=== PATIENT | male | born 1960 | race Caucasian/White ===

== ENCOUNTER 2018-03-29 01:12 | Inpatient (IN) | payer OTHER ==
[2018-03-29] MEDS ORDERED: DIAZEPAM 5 MG/ML 1 ML SYR IVP ONE (01:40)
[2018-03-29 01:56] LABS: PLATELET COUNT 172 10^3/uL (150-400)
[2018-03-29] MEDS ORDERED: ACETAMINOPHEN 325 MG TAB PO PRN (04:18)
[2018-03-29] MEDS ORDERED: ONDANSETRON DISINTEGRATING 4 MG TAB PO PRN (04:18)
--- NOTE | 2018-03-29 04:22 | EDPHY ---
H & P Stated Complaint: LEFT FLANK/BACK PAIN OFF AND ON FOR PAST 3 WEEKS Time Seen by Provider: 03/29/18 01:20 HPI/ROS: HPI The patient presents with left flank pain which has been intermittent for the last 3 weeks getting progressively worse, the pain is worse at night and tonight it became very severe so he comes into the emergency department. He is taking maximal doses of anti-inflammatories including Naprosyn and ibuprofen with minimal improvement in his symptoms. He has tried some oxycodone that his partner had left over with some relief. He denies any injuries to his back. He does not have any hematuria though sometimes reports a weak stream. He has not had any nausea or vomiting. He noticed when he touched his left flank it was very tender. He says he has spent the last several weeks in the bathtub because a bath is the only thing that helps with his pain. He has been seen by his primary care physician and has had some testing which has been unremarkable to date. He is awaiting an MRI of his spine next week. He has lost about 7-10 lb, however he attributes this to a trip into the mountains.. REVIEW OF SYSTEMS 10 systems were reviewed and negative with the exception of the elements mentioned in the history of present illness. PMHx: History of gastritis Soc Hx: Drinks about 1-2 bottles of wine a week, no drinking binges recently PHYSICAL General Appearance: Alert, no distress Eyes: Pupils equal and round no pallor or injection ENT, Mouth: Mucous membranes moist Respiratory: There are no retractions, lungs are clear to auscultation Cardiovascular: Regular rate and rhythm Gastrointestinal: Abdomen is soft and non-tender, no masses, bowel sounds normal Back: There is severe left-sided CVA tenderness Neurological: A&O, moves all extremities Skin: Warm and dry, no rashes Musculoskeletal: Neck is supple non tender Extremities: symmetrical, full range of motion Psychiatric: Patient is oriented X 3, there is no agitation Source: Patient Exam Limitations: No limitations - Personal History Current Tetanus/Diphtheria Vaccine: Yes Current Tetanus Diphtheria and Acellular Pertussis (TDAP): Yes Tetanus Vaccine Date: 2008 - Medical/Surgical History Hx Asthma: No Hx Chronic Respiratory Disease: No Hx Diabetes: No Hx Cardiac Disease: No Hx Renal Disease: No Hx Cirrhosis: No Hx Alcoholism: No Hx HIV/AIDS: No Hx Splenectomy or Spleen Trauma: No Other PMH: GASTRITIS - Social History Smoking Status: Never smoked Constitutional: Initial Vital Signs Temperature (C) 36.5 C 03/29/18 01:13 Heart Rate 63 03/29/18 01:13 Respiratory Rate 18 03/29/18 01:13 Blood Pressure 119/71 03/29/18 01:13 O2 Sat (%) 99 03/29/18 01:13 O2 Delivery Mode Room Air Allergies/Adverse Reactions: No Known Allergies Allergy (Verified 03/29/18 01:17) Home Medications: Medication Instructions Recorded Ibuprofen 600 mg PO 03/29/18 Medical Decision Making Differential Diagnosis: 57-year-old healthy man presents with 3 weeks of intermittent left-sided flank pain which is worse at night. On exam, he does have severe left-sided CVA tenderness. Differential diagnosis includes ureterolithiasis, pyelonephritis, musculoskeletal pain, less likely pancreatitis. In the emergency department labs were obtained and were unremarkable. As patient received Valium and morphine, however on reassessment had ongoing severe pain. CT scan was obtained which raises suspicion for malignancy of the pancreas with some sort of nodule in the retroperitoneum and hydronephrosis of the left kidney. I discussed this with him. Because he has ongoing pain, he does not feel he can manage this at home and would like to be admitted to the hospital. I have consulted with Dr. Stewart who will admit the patient. - Data Points Laboratory Results: Laboratory Results 03/29/18 01:45 03/29/18 01:45 03/29/18 03/29/18 03/29/18 01:45 01:45 01:45 WBC RBC Hgb Hct MCV MCH MCHC RDW Plt Count MPV Neut % (Auto) Lymph % (Auto) [place] % (Auto) Eos % (Auto) Baso % (Auto) Nucleat RBC Rel Count Absolute Neuts (auto) Absolute Lymphs (auto) Absolute Monos (auto) Absolute Eos (auto) Absolute Basos (auto) Absolute Nucleated RBC Immature Gran % Immature Gran # Sodium 139 mEq/L mEq/L (135-145) Potassium 4.7 mEq/L mEq/L (3.3-5.0) Chloride 106 mEq/L mEq/L (97-110) Carbon Dioxide 26 mEq/l mEq/l (22-31) Anion Gap 7 mEq/L L mEq/L (8-16) BUN 33 mg/dL H mg/dL (7-23) Creatinine 0.7 mg/dL mg/dL (0.7-1.3) Estimated GFR > 60 Glucose 112 mg/dL H mg/dL (70-100) Calcium 9.3 mg/dL mg/dL (8.5-10.4) Total Bilirubin 0.4 mg/dL mg/dL (0.1-1.4) Conjugated Bilirubin 0.1 mg/dL mg/dL (0.0-0.5) Unconjugated Bilirubin 0.3 mg/dL mg/dL (0.0-1.1) AST 20 IU/L IU/L (17-59) ALT 29 IU/L IU/L (21-72) Alkaline Phosphatase 63 IU/L IU/L (38-126) Total Protein 5.9 g/dL L g/dL (6.3-8.2) Albumin 3.6 g/dL g/dL (3.5-5.0) Lipase 33 IU/L IU/L (23-300) Urine Color YELLOW Urine Appearance CLEAR Urine pH 5.0 (5.0-7.5) Ur Specific [place] 1.031 H (1.002-1.030) Urine Protein NEGATIVE (NEGATIVE) Urine Ketones NEGATIVE (NEGATIVE) Urine Blood NEGATIVE (NEGATIVE) Urine Nitrate NEGATIVE (NEGATIVE) Urine Bilirubin NEGATIVE (NEGATIVE) Urine Urobilinogen NEGATIVE EU EU (0.2-1.0) Ur Leukocyte Esterase NEGATIVE (NEGATIVE) Urine Glucose NEGATIVE (NEGATIVE) 03/29/18 01:45 WBC 9.02 10^3/uL 10^3/uL (3.80-9.50) RBC 4.63 10^6/uL 10^6/uL (4.40-6.38) Hgb 14.1 g/dL g/dL (13.7-17.5) Hct 40.8 % % (40.0-51.0) MCV 88.1 fL fL (81.5-99.8) MCH 30.5 pg pg (27.9-34.1) MCHC 34.6 g/dL g/dL (32.4-36.7) RDW 12.7 % % (11.5-15.2) Plt Count 172 10^3/uL 10^3/uL (150-400) MPV 10.7 fL fL (8.7-11.7) Neut % (Auto) 62.6 % % (39.3-74.2) Lymph % (Auto) 23.2 % % (15.0-45.0) [place] % (Auto) 10.5 % % (4.5-13.0) Eos % (Auto) 3.1 % % (0.6-7.6) Baso % (Auto) 0.4 % % (0.3-1.7) Nucleat RBC Rel Count 0.0 % % (0.0-0.2) Absolute Neuts (auto) 5.64 10^3/uL 10^3/uL (1.70-6.50) Absolute Lymphs (auto) 2.09 10^3/uL 10^3/uL (1.00-3.00) Absolute Monos (auto) 0.95 10^3/uL H 10^3/uL (0.30-0.80) Absolute Eos (auto) 0.28 10^3/uL 10^3/uL (0.03-0.40) Absolute Basos (auto) 0.04 10^3/uL 10^3/uL (0.02-0.10) Absolute Nucleated RBC 0.00 10^3/uL 10^3/uL (0-0.01) Immature Gran % 0.2 % % (0.0-1.1) Immature Gran # 0.02 10^3/uL 10^3/uL (0.00-0.10) Sodium Potassium Chloride Carbon Dioxide Anion Gap BUN Creatinine Estimated GFR Glucose Calcium Total Bilirubin Conjugated Bilirubin Unconjugated Bilirubin AST ALT Alkaline Phosphatase Total Protein Albumin Lipase Urine Color Urine Appearance Urine pH Ur Specific [place] Urine Protein Urine Ketones Urine Blood Urine Nitrate Urine Bilirubin Urine Urobilinogen Ur Leukocyte Esterase Urine Glucose Medications Given: Morphine Sulfate (Morphine) 1 - 2 mg IVP Q1HR PRN PRN Reason: Pain, Severe Unable to Take PO Stop: 04/08/18 04:17 Last Admin: 03/29/18 05:15 Dose: 2 mg Ondansetron HCl (Zofran) 4 mg IVP Q4HRS PRN PRN Reason: Nausea/Vomiting, Can't Take PO Stop: 09/25/18 04:17 Last Admin: 03/29/18 05:15 Dose: 4 mg Discontinued Medications Diazepam (Valium) 5 mg IVP EDNOW ONE Stop: 03/29/18 01:41 Last Admin: 03/29/18 01:50 Dose: 5 mg Morphine Sulfate (Morphine) 4 mg IVP EDNOW ONE Stop: 03/29/18 03:17 Last Admin: 03/29/18 03:24 Dose: 4 mg Departure - Departure Disposition: [facility] Acute Clinical Impression: Pancreatic abnormality, Left flank pain Hydronephrosis Qualifiers: Hydronephrosis type: unspecified Qualified Code(s): N13.30 - Unspecified hydronephrosis Condition: Fair
[2018-03-29] MEDS: ONDANSETRON 4 MG/2 ML VIAL IVP PRN (05:15)
--- NOTE | 2018-03-29 06:12 | PDGENHP ---
History and Physical - Chief Complaint Flank pain - History of Present Illness 57 yo M w/ minimal PMHx presents with flank pain. He tells me he has had a myriad of symptoms over the last few months. In December he developed severe abdominal pain and difficulty eating that was attributed to gastritis. He was diagnosed with H. Pylori at that time. He tells me this GI discomfort is improved but over the last 3 weeks he has developed progressive L flank pain. He feels like the pain is "behind his stomach" but further to the left. He is tender in the L flank area. He felt subjectively feverish today as well. In the ED a CT scan reveals possible pancreatic malignancy as well as a L sided retroperitoneal nodule leading to moderate hydronephrosis. Patient has lost 10 lbs this summer but he states this is not uncommon during his backpacking trips , which he took earlier this summer. At the time of my evaluation he is comfortable after pain medication. Case discussed with ED physician Dr. Ambrocio; records reviewed in EMR. History Information - Allergies/Home Medication List Allergies/Adverse Reactions: No Known Allergies Allergy (Verified 03/29/18 01:17) Home Medications: Ibuprofen 600 mg PO 03/29/18 [Last Taken Unknown] I have personally reviewed and updated: family history, medical history - Past Medical History no pertinent PMH - Surgical History Reports: no pertinent surgical hx - Family History Additional family history: Asked, denies - Social History Smoking Status: Never smoked Review of Systems Review of Systems: ROS: 10pt was reviewed & negative except for what was stated in HPI & below Physical Exam Physical Exam: Temp Pulse Resp BP Pulse Ox 36.0 C 55 L 16 120/66 95 03/29/18 05:08 03/29/18 05:33 03/29/18 05:33 03/29/18 05:08 03/29/18 05:33 Constitutional: appears nourished, uncomfortable Eyes: PERRL, EOMI Ears, Nose, Mouth, Throat: moist mucous membranes, no oral mucosal ulcers Cardiovascular: regular rate and rhythym, no murmur, rub, or gallop Respiratory: no respiratory distress, clear to auscultation Gastrointestinal: normoactive bowel sounds, tenderness (Mild, epi-gastric), other (L CVAT) Skin: warm, normal color Musculoskeletal: full muscle strength, no muscle tenderness Neurologic: AAOx3, CN II-XII Intact Psychiatric: interacting appropriately, not anxious Lab Data & Imaging Review 03/29/18 01:45 03/29/18 01:45 WBC 9.02 10^3/uL (3.80-9.50) 03/29/18 01:45 RBC 4.63 10^6/uL (4.40-6.38) 03/29/18 01:45 Hgb 14.1 g/dL (13.7-17.5) 03/29/18 01:45 Hct 40.8 % (40.0-51.0) 03/29/18 01:45 MCV 88.1 fL (81.5-99.8) 03/29/18 01:45 MCH 30.5 pg (27.9-34.1) 03/29/18 01:45 MCHC 34.6 g/dL (32.4-36.7) 03/29/18 01:45 RDW 12.7 % (11.5-15.2) 03/29/18 01:45 Plt Count 172 10^3/uL (150-400) 03/29/18 01:45 MPV 10.7 fL (8.7-11.7) 03/29/18 01:45 Neut % (Auto) 62.6 % (39.3-74.2) 03/29/18 01:45 Lymph % (Auto) 23.2 % (15.0-45.0) 03/29/18 01:45 [place] % (Auto) 10.5 % (4.5-13.0) 03/29/18 01:45 Eos % (Auto) 3.1 % (0.6-7.6) 03/29/18 01:45 Baso % (Auto) 0.4 % (0.3-1.7) 03/29/18 01:45 Nucleat RBC Rel Count 0.0 % (0.0-0.2) 03/29/18 01:45 Absolute Neuts (auto) 5.64 10^3/uL (1.70-6.50) 03/29/18 01:45 Absolute Lymphs (auto) 2.09 10^3/uL (1.00-3.00) 03/29/18 01:45 Absolute Monos (auto) 0.95 10^3/uL (0.30-0.80) H 03/29/18 01:45 Absolute Eos (auto) 0.28 10^3/uL (0.03-0.40) 03/29/18 01:45 Absolute Basos (auto) 0.04 10^3/uL (0.02-0.10) 03/29/18 01:45 Absolute Nucleated RBC 0.00 10^3/uL (0-0.01) 03/29/18 01:45 Immature Gran % 0.2 % (0.0-1.1) 03/29/18 01:45 Immature Gran # 0.02 10^3/uL (0.00-0.10) 03/29/18 01:45 Sodium 139 mEq/L (135-145) 03/29/18 01:45 Potassium 4.7 mEq/L (3.3-5.0) 03/29/18 01:45 Chloride 106 mEq/L (97-110) 03/29/18 01:45 Carbon Dioxide 26 mEq/l (22-31) 03/29/18 01:45 Anion Gap 7 mEq/L (8-16) L 03/29/18 01:45 BUN 33 mg/dL (7-23) H 03/29/18 01:45 Creatinine 0.7 mg/dL (0.7-1.3) 03/29/18 01:45 Estimated GFR > 60 03/29/18 01:45 Glucose 112 mg/dL (70-100) H 03/29/18 01:45 Calcium 9.3 mg/dL (8.5-10.4) 03/29/18 01:45 Total Bilirubin 0.4 mg/dL (0.1-1.4) 03/29/18 01:45 Conjugated Bilirubin 0.1 mg/dL (0.0-0.5) 03/29/18 01:45 Unconjugated Bilirubin 0.3 mg/dL (0.0-1.1) 03/29/18 01:45 AST 20 IU/L (17-59) 03/29/18 01:45 ALT 29 IU/L (21-72) 03/29/18 01:45 Alkaline Phosphatase 63 IU/L (38-126) 03/29/18 01:45 Total Protein 5.9 g/dL (6.3-8.2) L 03/29/18 01:45 Albumin 3.6 g/dL (3.5-5.0) 03/29/18 01:45 Lipase 33 IU/L (23-300) 03/29/18 01:45 Urine Color YELLOW 03/29/18 01:45 Urine Appearance CLEAR 03/29/18 01:45 Urine pH 5.0 (5.0-7.5) 03/29/18 01:45 Ur Specific [place] 1.031 (1.002-1.030) H 03/29/18 01:45 Urine Protein NEGATIVE (NEGATIVE) 03/29/18 01:45 Urine Ketones NEGATIVE (NEGATIVE) 03/29/18 01:45 Urine Blood NEGATIVE (NEGATIVE) 03/29/18 01:45 Urine Nitrate NEGATIVE (NEGATIVE) 03/29/18 01:45 Urine Bilirubin NEGATIVE (NEGATIVE) 03/29/18 01:45 Urine Urobilinogen NEGATIVE EU (0.2-1.0) 03/29/18 01:45 Ur Leukocyte Esterase NEGATIVE (NEGATIVE) 03/29/18 01:45 Urine Glucose NEGATIVE (NEGATIVE) 03/29/18 01:45 Imaging Review: prelim CT AP 1. Pancreatic body neoplasm vs pancreatitis with phlegmon 2. Moderate left hydronephrosis and dilated prox ureter may be due to 1.5 cm retroperitoneal nodule. 3. No ureteral calculi 4. Trace FF along inferior tip of liver d/w Dr. Ambrocio at 2:25 am Assessment & Plan Assessment: 57 yo M w/ no significant PMHx presents with flank pain and found to have pancreatic lesion and retroperitoneal nodule. Plan: 1. Pancreatic lesion - Per radiology, differential includes neoplasm vs. pancreatitis with phlegmon. Clinically picture is not consistent with pancreatitis; lipase normal and no nausea/vomiting currently. Patient does have 10 lb weight loss this summer, but he states this is normal during his summer backpacking trip. He has no personal or family history of malignancy. - Will repeat CT with IV contrast for better evaluation of lesion - Direct further work-up pending this study (biopsy, oncology consult) - Will send CA 19-9, CEA, AFP 2. Retroperitoneal nodule - Left sided and leading to moderate hydronephrosis, possibly related to #1. This may be responsible for his L flank pain. - CT w/ IV contrast as above - Oxycodone, morphine PRN for pain control 3. Moderate hydronephrosis - As a result of retroperitoneal nodule. Renal function currently normal. - Will likely need non-urgent urology consult Diet - Regular Code - Full Ppx - LMWH Dispo - Admit under observation status
[2018-03-29] MEDS ORDERED: ENOXAPARIN 40 MG/0.4 ML SYR SC SCH (09:00)
[2018-03-29] MEDS: oxyCODONE IR 5 MG TAB PO PRN ×3 (10:43→22:08)
[2018-03-29] MEDS ORDERED: IOPAMIDOL (ISOVUE-300) 100 ML BTL ONE (10:55)
--- NOTE | 2018-03-29 11:47 | HOSPPROG ---
Hospitalist Progress Note Assessment/Plan: 57 yo M w/ no significant PMHx presents with flank pain and found to have pancreatic lesion and retroperitoneal nodule. Plan: 1. Pancreatic lesion - Per radiology, differential includes neoplasm vs. pancreatitis with phlegmon. Clinically picture is not consistent with pancreatitis; lipase normal and no nausea/vomiting currently. Patient does have 10 lb weight loss this summer, but he states this is normal during his summer backpacking trip. He has no personal or family history of malignancy. - Will repeat CT with IV contrast for better evaluation of lesion - Direct further work-up pending this study (biopsy, oncology consult) - Will send CA 19-9, CEA, AFP 2. Retroperitoneal nodule - Left sided and leading to moderate hydronephrosis, possibly related to #1. This may be responsible for his L flank pain. - CT w/ IV contrast as above - Oxycodone, morphine PRN for pain control 3. Moderate hydronephrosis - As a result of retroperitoneal nodule. Renal function currently normal. - Will likely need non-urgent urology consult Diet - Regular Code - Full Ppx - LMWH Dispo - Pending clinical course Subjective: Patient reports mild flank pain at time of exam, he reports it was severe last night Objective: Vital Signs Temp Pulse Resp BP Pulse Ox 36.4 C 52 L 16 114/65 97 03/29/18 07:36 03/29/18 07:36 03/29/18 07:36 03/29/18 07:36 03/29/18 07:36 03/28/18 03/29/18 03/30/18 05:59 05:59 05:59 Intake Total 100 Balance 100 - Physical Exam Constitutional: no apparent distress Eyes: PERRL Ears, Nose, Mouth, Throat: moist mucous membranes Cardiovascular: regular rate and rhythym Respiratory: no respiratory distress Gastrointestinal: normoactive bowel sounds, soft, non-tender abdomen Genitourinary: no bladder fullness, No casanova in urethra Skin: warm Musculoskeletal: full muscle strength Neurologic: AAOx3 Psychiatric: interacting appropriately Lymph, Heme, Immunologic: No ecchymoses, No petechiae ICD10 Worksheet Patient Problems: Problems Problem Status Onset Hydronephrosis Acute Left flank pain Acute Pancreatic abnormality Acute
--- NOTE | 2018-03-29 14:57 | ASMTCMCOM ---
CM Note CM Note Notes: Chart reviewed. 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 Per CT there is a pancreatic lesion of unknown etiology He is undergoing diagnostics. CM to follow for needs. Plan: TBD Date Signed: 03/29/2018 02:56 PM Electronically Signed By:Corinne Han RN
[2018-03-29] MEDS: LORazepam 0.5 MG TAB PO PRN ×2 (18:27→22:08)
--- NOTE | 2018-03-29 18:28 | GCON ---
GI INPATIENT CONSULTATION. DATE OF CONSULTATION: 03/29/2018 I was kindly requested to see the patient by Dr. Andrey Wade in consultation for a chief complaint of an abnormal x-ray of the GI tract. He is a 57-year-old white male who presents with left flank pain. In December, he had significant abdominal pain and some difficulty eating. He was apparently diagnosed with H pylori at that time. This apparently improved, but about 3 weeks ago, he developed progressive left flank pain. He has had a 10 pound weight loss since the summer. PAST MEDICAL HISTORY: 1. As above. 2. Otherwise, noncontributory. OUTPATIENT MEDICATIONS: Just include ibuprofen as needed. INPATIENT MEDICATIONS: Include Lovenox, morphine, Zofran. ALLERGIES: No known drug allergies. SOCIAL HISTORY: Denies smoking. FAMILY HISTORY: Negative for similar abdominal pain. REVIEW OF SYSTEMS: Positive pertinent review of systems as per my HPI. Otherwise, complete review of systems is negative. PHYSICAL EXAM: Reveals a nontoxic appearing gentleman. CONSTITUTIONAL: Nontoxic-appearing. VITAL SIGNS: Stable. SKIN: Warm, dry. EYES: Pupils equal, round, reactive to light and accommodation. EARS, NOSE, MOUTH, AND THROAT: Oropharynx without masses, moist mucosa. CARDIOVASCULAR: Normal S2, normal PMI. RESPIRATORY: Lungs clear to auscultation and percussion anteriorly. GASTROINTESTINAL: Abdomen is soft, with normal bowel sounds. NEUROLOGIC: Cranial nerves grossly intact, nonfocal. PSYCHIATRIC: Orientation, insight appropriate. MUSCULOSKELETAL: Strength grossly normal throughout, normal station. LABORATORIES: Include a CT scan of the abdomen and pelvis with IV contrast showing a 4 x 4 x 3 cm solid mass in the body of the pancreas. There is also what appears to be a 1.5 cm lymph node in the retroperitoneum, which seems to be responsible for a moderate left hydronephrosis. Normal CBC. CA 19-9 pending. Mildly elevated CEA. Normal lipase. Normal liver function tests. Normal basic metabolic panel. ASSESSMENT: 1. Abnormal x-ray of the gastrointestinal tract. A solid mass seen in the body of the pancreas. Suspicious for adenocarcinoma. 2. Left flank pain. See above. Much of this also may be due to a possible metastatic lymph node and secondary left-sided hydronephrosis. PLAN: 1. Endoscopic ultrasound with biopsy of the pancreatic body mass, for a firm tissue diagnosis. I will arrange this with my partner, Dr. Peraza, who does this advanced endoscopic procedure. Hopefully, we can do this tomorrow afternoon. 2. We will hold his Lovenox for now. 3. Further management of his possible metastatic retroperitoneal lymph node and secondary moderate left hydronephrosis, as per the Hospitalist Service. Thank you for allowing me to help in the management of this patient. Copy requested to: JAYESH FRITZ /[id number]/MODL MTDD
--- NOTE | 2018-03-29 19:26 | PDCONSULT ---
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 Patient began with left upper quadrant and left flank type pain with some radiation into the groin around December 2017. This was brought up to his primary care physician who then identified an H pylori infection. Patient was then treated for H pylori however as some of the pain improves some of it also persisted worse in the left upper quadrant left flank. This left flank pain and grew more intense over the previous 3 weeks and then the night of presentation patient felt feverish and went to the emergency room. In the emergency room a CT abdomen was performed which showed a nodule in the retroperitoneum causing hydronephrosis of the left kidney as well as a pancreatic body/tail mass. Patient is in acute pain in particular into the left flank despite morphine and oxycodone. Patient denies any nausea or vomiting he denies any changes in weight or changes in appetite however he did report some early satiety as of late which she attributed to his H. pylori infection. 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 -Patient denies any history of drugs or tobacco use -He does report occasional alcohol use, drinking wine a couple times a week with his -Patient is without children Family history -Patient is adopted but says his father of cancer which she presumes was long at age 63 Allergies -None Medications -Syriac herbal medicine preparations Physical examination: Vital Signs Reviewed in chart General: Patient is in mild distress from left flank pain otherwise is alert and oriented HEENT: Pupils are equal round reactive to light no scleral icterus or conjunctival pallor was appreciated Oropharynx is moist without any oral pharyngeal lesions Cardiovascular: Regular rate and rhythm without rubs thrills gallops or murmurs Chest: Some scant crackles at the left base otherwise clear to auscultation and percussion no respiratory distress Abdomen: Soft tender in the left upper in particular in the left lower quadrant without rebound or guarding no rigidity Extremities, warm and well perfused 2+ dorsalis pedis and radial pulses bilaterally Neurologic alert and oriented 3 cranial nerves II through XII are grossly intact patient has a normal gait Lymph: ~2cm mobile rubbery left axillary LN, no other palpable LAD Labs: CEA 7.19 Otherwise CBC and CMP are relatively unremarkable other than some absolute monocytosis which can be seen in malignancy CT of the abdomen and pelvis with IV contrast from March 29, 2018 was personally reviewed and reviewed with the patient including and demonstrated a pancreatic body/tail mass abutting the stomach as well as a retroperitoneal lymph node causing left-sided hydronephrosis Assessment and plan Patient is a 57-year-old male who presents with left-sided colicky pain and subsequently found to have left-sided hydronephrosis from a retroperitoneal nodule in proximity to a left pancreatic tail mass. Oncology was consulted for evaluation. #Pancreatic body/tail mass The radiographic features taken together with the elevated CEA are likely most consistent with pancreatic adenocarcinoma. The retroperitoneal lymph node would certainly be an area concerning for non-contiguous lymph node spread. Patient also does have a left 2 cm axillary lymph node which may also represent carcinoma. Other considerations would be pancreatic neuroendocrine tumor primary pancreatic lymphoma or IgG 4 related illness. Unlikely pancreatitis/ pseudocyst given no history of same. Recommend EUS with biopsy of the pancreatic mass. Recommend comprehensive pain management which may or may not include palliative stenting of the left ureter If this does indeed end up being pancreatic adenocarcinoma with then recommend a PET CT scan for more definitive staging. We will follow the patient peripherally and watch for his biopsy and CA-19-9 otherwise oncology will not continue to follow. Please call with any questions or concerns Christopher Watson [phone]
[2018-03-29] MEDS ORDERED: MAGNESIUM HYDROXIDE 30 ML UDCUP PO PRN (22:06)
[2018-03-29] MEDS ORDERED: POLYETHYLENE GLYCOL 3350 17 GM PKT PO PRN (22:06)
[2018-03-29] MEDS ORDERED: LACTULOSE 20 GM/30 ML UDCUP PO PRN (22:06)
[2018-03-29] MEDS: SENNOSIDES/DOCUSATE SODIUM TAB PO SCH (22:35)
[2018-03-30] MEDS: oxyCODONE IR 5 MG TAB PO PRN ×4 (01:21→23:24)
[2018-03-30] MEDS: LORazepam 0.5 MG TAB PO PRN ×3 (02:56→21:20)
[2018-03-30 03:42] LABS: INR 1.05 (0.83-1.16); PROTIME(PATIENT) 13.9 SEC (12.0-15.0)
[2018-03-30] MEDS: SENNOSIDES/DOCUSATE SODIUM TAB PO SCH ×2 (08:30→20:20)
[2018-03-30] MEDS: BISACODYL 10 MG SUPP PR PRN (08:33)
[2018-03-30] MEDS: D5W 1/2 NS W/ 20 KCl/L 1,000 ML IV SCH (09:50)
[2018-03-30] MEDS: TAMSULOSIN HCL 0.4 MG CAP PO SCH (11:57)
--- NOTE | 2018-03-30 12:18 | HOSPPROG ---
Hospitalist Progress Note Assessment/Plan: 57 yo M w/ no significant PMHx presents with flank pain and found to have pancreatic mass and retroperitoneal nodule. Plan: 1. Pancreatic Mass - Repeat CT with IV contrast done on 03/29 which showed a 4x3 cm mass - GI consulted for EUS with biopsies today - Oncology consulted for further evaluation and management pending biopsy - Pain control prn - CEA elevated, CA-19-9 pending 2. Retroperitoneal nodule/Moderate Hydronephrosis/Urinary Retention - Left sided and leading to moderate hydronephrosis, likely related to #1. - Patient retaining ~300-400 ml post-void residual - Straight cath PRN, if requires multiple I/O caths today will place casanova catheter - Discussed case with Urology, Dr. Ruiz, yesterday who recommended no current intervention - Will start on Flomax today - Oxycodone, morphine PRN for pain control Diet - Regular Code - Full Ppx - LMWH Dispo - Pending clinical course Subjective: Patient reports continuing urinary retention and flank pain Objective: Vital Signs Temp Pulse Resp BP Pulse Ox 36.7 C 66 16 126/77 H 95 03/30/18 08:15 03/30/18 08:15 03/30/18 08:15 03/30/18 08:15 03/30/18 08:15 03/29/18 03/30/18 03/31/18 05:59 05:59 05:59 Intake Total 100 100 Output Total 350 283 Balance 100 -250 -283 PT 13.9 SEC (12.0-15.0) 03/30/18 03:10 INR 1.05 (0.83-1.16) 03/30/18 03:10 - Physical Exam Constitutional: uncomfortable Eyes: PERRL Ears, Nose, Mouth, Throat: moist mucous membranes Cardiovascular: regular rate and rhythym Respiratory: no respiratory distress Gastrointestinal: soft, non-tender abdomen Genitourinary: no bladder tenderness Skin: warm Musculoskeletal: full muscle strength Neurologic: AAOx3 Psychiatric: interacting appropriately ICD10 Worksheet Patient Problems: Problems Problem Status Onset Hydronephrosis Acute Left flank pain Acute Pancreatic abnormality Acute
[2018-03-30] MEDS: HYDROmorphone HCL 0.5 MG/0.5 ML SYR IVP PRN ×2 (13:39→20:19)
[2018-03-30] MEDS ORDERED: LR 1,000 ML IV ONE (15:47)
--- NOTE | 2018-03-30 16:55 | PDMN ---
Medical Necessity Medical necessity: [facility] Pain Management GR57 y/o w/ flank and abd pain, CT scan reveals pancreatic mass and retroperitoneal nodule, GI and oncology consulted, EUS w/ biopsies pending, mod hydronephrosis likely r/t rp nodule requiring straight caths PRN, potential for urinary catheter placement per urology consult. During course of hospitalization pt has required IV opioids q2 hours in addition to long acting PO opioids, IV antiemetics, and pt remains NPO with cont IV fluids. Elevated CEA noted, CA19-9 pending, Change to IP status per MD order 03/30/18 @ 1627 for ongoing pain management, further diagnostic testing, monitoring and treatment.
--- NOTE | 2018-03-30 17:05 | PDANEPAE ---
ANE History of Present Illness egd,eus ANE Past Medical History - Cardiovascular History Hx Hypertension: No Hx Arrhythmias: No Hx Chest Pain: No Hx Coronary Artery / Peripheral Vascular Disease: No Hx CHF / Valvular Disease: No Hx Palpitations: No - Pulmonary History Hx COPD: No Hx Asthma/Reactive Airway Disease: No Hx Recent Upper Respiratory Infection: No Hx Oxygen in Use at Home: No Hx Sleep Apnea: No Sleep Apnea Screening Result - Last Documented: Negative - Neurologic History Hx Cerebrovascular Accident: No Hx Seizures: No Hx Dementia: No - Endocrine History Hx Diabetes: No Hypothyroid: No Hyperthyroid: No Obesity: no - Renal History Hx Renal Disorders: Yes Renal History Comment: hydronephrosis - Liver History Hepatic History Comment: pancreatic mass - Neurological & Psychiatric Hx Hx Neurological and Psychiatric Disorders: No - Chronic Pain History Chronic Pain: No ANE Review of Systems Review of Systems: - Exercise capacity Exercise capacity: >=4 METS ANE Patient History - Allergies Allergies/Adverse Reactions: No Known Allergies Allergy (Verified 03/29/18 01:17) - Home Medications Home medications: home medication list seen and reviewed Home Medications: Herbals/Supplements -Info Only 1 ea PO DAILY 03/29/18 [Last Taken Unknown] Naproxen 250 mg PO DAILY PRN 03/29/18 [Last Taken Unknown] - NPO status NPO Status: no food or drink >8 hours NPO Since - Liquids (Date): 03/30/18 NPO Since - Liquids (Time): 09:00 NPO Since - Solids (Date): 03/30/18 NPO Since - Solids (Time): 09:00 - Anes Hx Anes Hx: no prior problems Hx Anesthesia Complications (with details): he felt sab lead to development of reflux - Smoking Hx Smoking Status: Never smoked ANE Labs/Vital Signs - Labs Result Diagrams: 03/29/18 01:45 03/29/18 01:45 - Vital Signs Blood Pressure: 136/81 Heart Rate: 75 Respiratory Rate: 16 O2 Sat (%): 94 Height: 175.26 cm Weight: 65.6 kg ANE Physical Exam - Airway Mallampati Score: Class 2 Mouth exam: normal dental/mouth exam - Pulmonary Pulmonary: no respiratory distress - Cardiovascular Cardiovascular: regular rate and rhythym - ASA Status ASA Status: II ANE Anesthesia Plan Anesthesia Plan: general endotracheal anesthesia, GA with mask, MAC
[2018-03-30] MEDS ORDERED: LIDOCAINE 2% 2 ML INJ ONE ×3 (17:07)
[2018-03-30] MEDS ORDERED: ROCURONIUM 50 MG/5 ML VIAL ONE (17:07)
[2018-03-30] MEDS ORDERED: SUCCINYLCHOLINE CHLORIDE 200 MG/10 ML SYR IVP ONE (17:07)
[2018-03-30] MEDS ORDERED: DEXAMETHASONE 4 MG/ML VIAL ONE (17:07)
[2018-03-30] MEDS ORDERED: fentaNYL 100 MCG/2 ML INJ ONE (17:08)
[2018-03-30] MEDS ORDERED: PROPOFOL 200 MG/20 ML VIAL ONE (17:08)
[2018-03-30] MEDS ORDERED: ONDANSETRON 4 MG/2 ML VIAL ONE (17:32)
[2018-03-30] MEDS ORDERED: SUGAMMADEX SODIUM 200 MG/2 ML VIAL IVP ONE (17:32)
[2018-03-30] MEDS ORDERED: NALOXONE HCL 0.4 MG/ML INJ IVP PRN (18:02)
[2018-03-30] MEDS ORDERED: fentaNYL 100 MCG/2 ML INJ IVP PRN (18:02)
[2018-03-30] MEDS ORDERED: LR 500 ML IV PRN (18:02)
[2018-03-30] MEDS ORDERED: ALBUTEROL 3 ML DEYVIAL IH PRN (18:02)
[2018-03-30] MEDS ORDERED: ONDANSETRON 4 MG/2 ML VIAL IVP PRN (18:02)
--- NOTE | 2018-03-30 18:20 | GIREPORT ---
[facility] - Endoscopy Department Patient Name: Isai Mcmahon Procedure Date: 03/30/2018 5:11 PM Patient Type: Inpatient Attending MD/ ER Physician: Michele Peraza MD Procedure: Upper EUS Indications: Suspected mass in pancreas on CT scan, Abdominal pain in the left upper quadrant, Weight loss Patient Profile: 57 year old male presents for evaluation of left upper quadrant abdomin al pain, weight loss, and abnormal imaging (possible mass in mid body of t he pancreas) Providers: Michele Peraza MD Medicines: Monitored Anesthesia Care Complications: No immediate complications. Estimated blood loss: Minimal. Description of Procedure: After obtaining informed consent, the endoscope was passed under direct vision. Throughout the procedure, the patient's blood pressure, pulse, and oxygen saturations were monitored continuously. The Endosonoscope was introduced through the mouth, and advanced to the second part of duoden um. The esophagus, stomach, and duodenum were visualized endosonographicall y. The Endoscope was introduced through the mouth, and advanced to the sec ond part of duodenum. The upper EUS was accomplished without difficulty. Th e patient tolerated the procedure well. Findings: Endoscopic Finding : The examined esophagus was normal. A hiatal hernia was present. Patchy mildly erythematous mucosa was found in the gastric body and in the gastric antrum. Biopsies were taken with a cold forceps for histology. The examined duodenum was normal. Endosonographic Finding : An irregular mass was identified in the pancreatic body. The mass was hypoechoic. The mass measured 30 mm by 30 mm in maximal cross-sectional diameter. The endosonographic borders were poorly-defined. The remainde r of the pancreas was examined. The lesion was close to the splenic artery a nd it could not be determined if the echoplane b/w the lesion and the splenic vein was disrupted. The endosonographic appearance of parenchyma and the ups tream pancreatic duct indicated no duct dilation. Fine needle aspiration for cytology was performed. Color Doppler imaging was utilized prior to nee dle puncture to confirm a lack of significant vascular structures within th e needle path. Two passes were made with the 25 gauge needle using a transgastric approach. Adequate cellularity confirmed. A stylet was use d. A robotype operator was present and performed a preliminary cytologic examinatio n. Fine needle biopsy was performed. Color Doppler imaging was utilized pr ior to needle puncture to confirm a lack of significant vascular structures within the needle path. Two passes were made with the 22 gauge ultrasou nd biopsy needle using a transgastric approach. A visible core of tissue w as obtained. There was no sign of significant endosonographic abnormality in the visualized portion of the liver. No masses were identified. The gallbla dder and CBD was normal. No lymphadenopathy seen. The retroperitoneal lymph node seen on CT scan was not visible on EUS examination. Estimated Blood Loss: Estimated blood loss was minimal. Post Op Diagnosis: - Normal esophagus. - Hiatal hernia. - Erythematous mucosa in the gastric body and antrum. Biopsied. - Normal examined duodenum. - A mass was identified in the pancreatic body. Fine needle aspiration performed. Fine needle biopsy performed. - There was no evidence of significant pathology in the visualized port ion of the liver. Recommendation: - Return patient to [facility] for [facility] care. - Await cytology results and await path results. - NPO. - Continue present medications. - Thank you for allowing me to participate in the care of your patient. Attending Participation: I personally performed the entire procedure. Michele Peraza MD Michele Peraza MD 03/30/2018 6:20:06 PM This report has been signed electronicallyMichele Peraza MD Number of Addenda: 0 Note Initiated On: 03/30/2018 5:11 PM [email or web address]
--- NOTE | 2018-03-30 18:28 | POSTANESTH ---
Post Anesthetic Evaluation Cardiovascular Status: Normal, Stable Respiratory Status: Normal, Stable Level of Consciousness/Mental Status: Can Participate in Eval Pain Control: Adequate, Prn Tx Ordered Nausea/Vomiting Control: Adequate, Prn Tx Ordered Complications Possibly Related to Anesthesia: None Noted
[2018-03-31] MEDS: LORazepam 0.5 MG TAB PO PRN ×3 (02:07→19:50)
[2018-03-31] MEDS: oxyCODONE IR 5 MG TAB PO PRN ×6 (02:07→23:38)
[2018-03-31] MEDS: D5W 1/2 NS W/ 20 KCl/L 1,000 ML IV SCH (05:28)
--- NOTE | 2018-03-31 08:30 | SOAPPROG ---
JANEY Progress Note Assessment/Plan: Assessment/Plan: FNA from yesterday's EUS positive for malignancy. Dr. Peraza discussed with pt.' s . 03/31/18 08:28 Objective: Vital Signs Temp Pulse Resp BP Pulse Ox 36.6 C 61 18 104/60 95 03/31/18 03:55 03/31/18 03:55 03/31/18 03:55 03/31/18 03:55 03/31/18 03:55 Laboratory Results 03/31/18 06:06 03/30/18 03/31/18 04/01/18 05:59 05:59 05:59 Intake Total 2363 Output Total 500 Balance 1863 PT 13.9 SEC (12.0-15.0) 03/30/18 03:10 INR 1.05 (0.83-1.16) 03/30/18 03:10 ICD10 Worksheet Patient Problems: Problems Problem Status Onset Pancreatic abnormality Acute Left flank pain Acute Hydronephrosis Acute
[2018-03-31] MEDS: SENNOSIDES/DOCUSATE SODIUM TAB PO SCH ×2 (09:14→20:43)
[2018-03-31] MEDS: TAMSULOSIN HCL 0.4 MG CAP PO SCH (09:14)
[2018-03-31] MEDS ORDERED: MAGNESIUM CITRATE 300 ML BOTTLE PO ONE (09:47)
--- NOTE | 2018-03-31 11:46 | ASMTCMCOM ---
CM Note CM Note Notes: Patient's FNA came back positive for malignancy. Oncology will consult today. Patient also trying to coordinate with urology to resolve issue of Joseph v stent v indwelling cath before being discharged. He will contact his outpatient urologist to get her insight. Palliative consult ordered today given results of biopsy. CM will follow for any discharge needs. Date Signed: 03/31/2018 11:46 AM Electronically Signed By:Grace Griffin RN
[2018-03-31] MEDS: HYDROmorphone HCL 0.5 MG/0.5 ML SYR IVP PRN ×3 (11:54→20:51)
[2018-03-31] MEDS: ONDANSETRON 4 MG/2 ML VIAL IVP PRN (12:49)
[2018-03-31] MEDS ORDERED: HYDROmorphone HCL 0.5 MG/0.5 ML SYR IVP ONE (13:24)
--- NOTE | 2018-03-31 13:38 | HOSPPROG ---
Hospitalist Progress Note Assessment/Plan: 57 yo M w/ no significant PMHx presents with flank pain and found to have pancreatic mass and retroperitoneal nodule. Plan: 1. Pancreatic Mass - Repeat CT with IV contrast done on 03/29 which showed a 4x3 cm mass - GI consulted for EUS with biopsies which was done on 03/30, FNA showing - Oncology consulted, will see pt today - Pain control prn - CEA elevated, CA-19-9 pending 2. Retroperitoneal nodule/Moderate Hydronephrosis/Urinary Retention - Left sided and leading to moderate hydronephrosis, likely related to #1. - Patient retaining ~300-400 ml post-void residual - Straight cath PRN, if requires multiple I/O caths today will place casanova catheter - Discussed case with Urology, Dr. Gilbert this morning who recommended continuing casanova catheter as well as flomax with outpatient urology followup which he will arrange - Will start on Flomax today - Oxycodone, morphine PRN for pain control 3. Hyperkalemia - K 5.4 this AM - Likely elevated in setting of urinary retention - Management of retention as above - Continue to monitor K levels, treat as needed 4. Oncologic Pain - Currently having severe flank, abdominal pain - Continue Dilaudid IV PRN, Oxycodone PO PRN - May transition to long acting pain medication with breakthrough prior to discharge Diet - Regular Code - Full Ppx - LMWH Dispo - Pending clinical course, pain control being limiting factor Subjective: Patient was comfortable this morning with minimal pain Objective: Vital Signs Temp Pulse Resp BP Pulse Ox 36.3 C 77 16 133/69 H 91 L 03/31/18 11:20 03/31/18 11:20 03/31/18 11:20 03/31/18 11:20 03/31/18 11:20 Laboratory Results 03/31/18 06:06 03/30/18 03/31/18 04/01/18 05:59 05:59 05:59 Intake Total 2363 Output Total 500 Balance 1863 PT 13.9 SEC (12.0-15.0) 03/30/18 03:10 INR 1.05 (0.83-1.16) 03/30/18 03:10 - Physical Exam Constitutional: no apparent distress Eyes: PERRL Ears, Nose, Mouth, Throat: moist mucous membranes Cardiovascular: regular rate and rhythym Respiratory: no respiratory distress Gastrointestinal: normoactive bowel sounds Genitourinary: no bladder fullness Skin: warm Musculoskeletal: full muscle strength Neurologic: AAOx3 Psychiatric: interacting appropriately ICD10 Worksheet Patient Problems: Problems Problem Status Onset Hydronephrosis Acute Left flank pain Acute Pancreatic abnormality Acute
--- NOTE | 2018-03-31 16:44 | SOAPPROG ---
JANEY Progress Note Assessment/Plan: Assessment/Plan: FNA from yesterday's EUS positive for malignancy. Dr. Peraza discussed with pt.' s . Doing well, post-procedure, with minimal pain, afeb. - further mgmt as per oncology, urology and hospitalist Will sign off; please call if we can be of further help in the future [phone]). Thanks! 03/31/18 16:42 Subjective: cc: pancreatic body mass Minimal pain. No rigors, chills, sweats. Objective: Vital Signs Temp Pulse Resp BP Pulse Ox 36.6 C 75 16 108/50 L 94 03/31/18 15:28 03/31/18 15:28 03/31/18 15:28 03/31/18 15:28 03/31/18 15:28 Laboratory Results 03/31/18 06:06 03/30/18 03/31/18 04/01/18 05:59 05:59 05:59 Intake Total 2363 Output Total 500 450 Balance 1863 -450 PT 13.9 SEC (12.0-15.0) 03/30/18 03:10 INR 1.05 (0.83-1.16) 03/30/18 03:10 Physical Exam - Physical Exam General Appearance: WD/WN, alert, no apparent distress EENT: PERRL/EOMI, normal ENT inspection, pharynx normal, TMs normal Neck: non-tender, full range of motion, supple, normal inspection Respiratory: chest non-tender, lungs clear, normal breath sounds Cardiac/Chest: normal peripheral pulses, regular rate, rhythm Peripheral Pulses: 2+: carotid (R), carotid (L), femoral (R), femoral (L), dorsalis-pedis (R), dorsalis-pedis (L) Abdomen: normal bowel sounds, non-tender, soft Male Genitalia: deferred Rectal: deferred Back: Normal inspection Skin: normal color, warm/dry Lymphatic: no adenopathy Extremities: normal range of motion, non-tender, normal inspection, normal capillary refill Neuro/Psych: no motor/sensory deficits, alert, normal mood/affect, oriented x 3 ICD10 Worksheet Patient Problems: Problems Problem Status Onset Hydronephrosis Acute Left flank pain Acute Pancreatic abnormality Acute
[2018-04-01] MEDS: HYDROmorphone HCL 0.5 MG/0.5 ML SYR IVP PRN ×2 (03:33→07:35)
[2018-04-01] MEDS: oxyCODONE IR 5 MG TAB PO PRN ×4 (05:44→15:27)
[2018-04-01] MEDS: LORazepam 0.5 MG TAB PO PRN ×3 (06:40→20:31)
[2018-04-01] MEDS: SENNOSIDES/DOCUSATE SODIUM TAB PO SCH ×2 (08:42→20:01)
[2018-04-01] MEDS: TAMSULOSIN HCL 0.4 MG CAP PO SCH (08:44)
[2018-04-01] MEDS: ENOXAPARIN 40 MG/0.4 ML SYR SC SCH (08:48)
--- NOTE | 2018-04-01 10:02 | HOSPPROG ---
Hospitalist Progress Note Assessment/Plan: Assessment/Plan: 57 yo M w/ no significant PMHx presents with flank pain and found to have pancreatic mass and retroperitoneal nodule. Plan: Pancreatic Mass - FNA positive for malignancy. Final path pending, but suspect adenocarcinoma - Pain control: add fentanyl patch, cont prn oxy, dilaudid - Discussed with Dr. Troy, who will re-visit pt regarding staging, further treatment options - Likely needs PET scan next - Pt notes goals of care are to have a graceful Retroperitoneal nodule/Moderate Hydronephrosis/Urinary Retention. Pain still a significant problem. - repeat u/s today to reassess hydro. If worse, may need palliative stent - Re-called urology, who was consulted 03/29, did not see pt - Cont casanova, flomax - Pain cont Hyperkalemia- likely elevated in setting of urinary retention - resolved, monitor Oncologic Pain - Add Fentanyl patch as above, prn oxy, dilaudid Diet - Regular Code - Full Ppx - LMWH Dispo - cont inpt, urology and oncology consults today Subjective: Pt continues to have severe episodes of left flank pain. No N/V. No fevers/chills. Objective: Vital Signs Temp Pulse Resp BP Pulse Ox 36.8 C 95 16 119/67 92 04/01/18 07:53 04/01/18 07:53 04/01/18 07:53 04/01/18 07:53 04/01/18 07:53 Laboratory Results 04/01/18 03:49 03/31/18 04/01/18 04/02/18 05:59 05:59 05:59 Intake Total 2363 1000 Output Total 500 1450 Balance 1863 -450 PT 13.9 SEC (12.0-15.0) 03/30/18 03:10 INR 1.05 (0.83-1.16) 03/30/18 03:10 - Physical Exam Constitutional: no apparent distress Eyes: PERRL Ears, Nose, Mouth, Throat: moist mucous membranes Cardiovascular: regular rate and rhythym, no murmur, rub, or gallop Respiratory: no respiratory distress, clear to auscultation Gastrointestinal: normoactive bowel sounds, other (soft, nd, +TTP left side and epigastric, no r/r/g, +BS) Skin: warm Musculoskeletal: full muscle strength Neurologic: AAOx3 Psychiatric: interacting appropriately ICD10 Worksheet Patient Problems: Problems Problem Status Onset Hydronephrosis Acute Left flank pain Acute Pancreatic abnormality Acute
[2018-04-01] MEDS ORDERED: HYDROmorphone HCL 0.5 MG/0.5 ML SYR IVP PRN ×2 (10:03→13:24)
[2018-04-01] MEDS ORDERED: fentaNYL 12 MCG PATCH TD SCH (10:15)
--- NOTE | 2018-04-01 13:25 | GCON ---
DATE OF CONSULTATION: 04/01/2018 REASON FOR CONSULT: Left hydronephrosis. HISTORY OF PRESENT ILLNESS: Briefly, this is a 57-year-old male who was admitted with left flank jay n. He is also saying that over the last few months he has had severe abdominal pain, difficulty eati ng, and he feels like things have been progressing. Unfortunately, imaging in the ER showed pancreat ic malignancy with moderate left-sided hydronephrosis, and this would be a new diagnosis for this [facility] ient. ALLERGIES: No known drug allergies. HOME MEDICATIONS: Ibuprofen. PAST MEDICAL HISTORY: No pertinent past medical history. SURGICAL HISTORY: No surgical history. FAMILY HISTORY: Denies any pertinent family history. SOCIAL HISTORY: Never smoked. 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 REVIEW OF SYSTEMS: 10-point review of systems negative except as mentioned in HPI. PHYSICAL EXAM: VITAL SIGNS: Blood pressure 127/71, heart rate 84, respirations 15, O2 94 on room ai r, temperature 37.0. GENERAL: This is a thin male in no acute distress. HEENT: Normocephalic, atr aumatic. Extraocular movements intact. NECK: Supple. No lymphadenopathy. Trachea midline. RESPI RATORY: No accessory respiratory muscle use. CARDIAC: Regular rate and rhythm. No lower extremity edema. No obvious JVD. GI: Abdomen is somewhat tense to palpation. Tender over the left flank. : Patient has a catheter in his bladder. INTEGUMENT: Patient appears somewhat pale in color. No obvious rashes or lesions. NEURO: He was heavily narcotized but able to be roused and respond to q uestions. MUSCULOSKELETAL: Patient was examined while supine and not moving extremities. LABS: His white blood cell count is 9.02, hemoglobin 14.1, hematocrit 40.8, platelets 172. Chemistr ies: Sodium 140, potassium 4.7, chloride 99, carbon dioxide 31, anion gap 10, BUN 19, creatinine 1.1 , glucose 120, calcium is 9.5. Urinalysis appeared clear. CAT scan: The CT of the abdomen and pelv is was reviewed, which shows left-sided hydronephrosis. ASSESSMENT AND PLAN: Pancreatic cancer, left hydronephrosis. This case has been reviewed with Dr. Shantell argueta and recommend that the patient have a nephrostomy tube placed in the left kidney. Discussed oth er options, including stent. Recommend neph tube as initial treatment. Could consider stent down th e line. At this point, will move forward with a nephrostomy tube. /[id number]/MODL
--- NOTE | 2018-04-01 13:37 | SOAPPROG ---
SOAP Progress Note Assessment/Plan: Assessment and Plan: Isai is a very pleasant 57-year-old male who is presenting with a pancreatic mass. 1. Pancreatic mass: I do not see that his pathology has been finalized. I did call down to pathology and verbally was told that there were inflammatory changes in his biopsies. His CA 19-9 is elevated. He likely has an adenocarcinoma of the pancreas, however, we need pathology finalized prior to further discussion 2. Pain: He currently is receiving long-acting and short-acting medications. Appears last day that has been less of an issue. He voices understanding of the plan. Subjective: Isai reports significant pain over last 24 hr. He does state the pain is slightly better controlled today. He otherwise has no other complaints today. Objective: Vital Signs Temp Pulse Resp BP Pulse Ox 37.0 C 84 15 127/71 H 94 04/01/18 11:38 04/01/18 11:38 04/01/18 11:38 04/01/18 11:38 04/01/18 11:38 Laboratory Results 04/01/18 03:49 03/31/18 04/01/18 04/02/18 05:59 05:59 05:59 Intake Total 2363 1000 Output Total 500 1450 260 Balance 1863 -450 -260 PT 13.9 SEC (12.0-15.0) 03/30/18 03:10 INR 1.05 (0.83-1.16) 03/30/18 03:10 Physical examination: General: Pleasant-appearing male appears in no acute distress slightly sleepy at times HEENT opiates clear extraocular motions are intact Skin: No skin lesion Extremities: No cyanosis clubbing or edema Neuro: Moving all extremities ICD10 Worksheet Patient Problems: Problems Problem Status Onset Hydronephrosis Acute Left flank pain Acute Pancreatic abnormality Acute
[2018-04-01] MEDS ORDERED: HYDROmorphone HCL 0.5 MG/0.5 ML SYR IVP ONE (18:45)
--- NOTE | 2018-04-01 18:46 | ASMTCMCOM ---
CM Note CM Note Notes: Patient discussed in rounds today. Independent prior to current admission. C/O urinary issues and constipation. For biopsy this PM. CM to follow for needs. Plan: TBD Date Signed: 03/30/2018 02:43 PM Electronically Signed By:Corinne Han RN
--- NOTE | 2018-04-01 18:46 | ASMTCMCOM ---
CM Note CM Note Notes: Patient discussed and seen in interdisciplinary rounds. Final pathology on pancreatic mass pending. Pain fairly well controlled. Urology in to see. Plan will be a stent. Discharge needs remain TBD at this time. CM to follow. Plan: TBD Date Signed: 04/01/2018 02:45 PM Electronically Signed By:Corinne Han RN
[2018-04-02] MEDS: oxyCODONE IR 5 MG TAB PO PRN ×4 (00:19→22:54)
[2018-04-02] MEDS: LORazepam 0.5 MG TAB PO PRN ×2 (02:26→20:02)
[2018-04-02] MEDS: HYDROmorphone HCL 0.5 MG/0.5 ML SYR IVP PRN ×3 (02:26→23:53)
[2018-04-02] MEDS: PROCHLORPERAZINE MALEATE 5 MG TAB PO PRN ×2 (05:12→20:50)
[2018-04-02] MEDS: TAMSULOSIN HCL 0.4 MG CAP PO SCH (08:14)
[2018-04-02] MEDS: SENNOSIDES/DOCUSATE SODIUM TAB PO SCH ×2 (08:14→20:02)
[2018-04-02] MEDS ORDERED: fentaNYL 100 MCG/2 ML INJ IVP PRN (08:22)
[2018-04-02] MEDS ORDERED: NALOXONE HCL 0.4 MG/ML INJ IVP PRN (08:22)
[2018-04-02] MEDS ORDERED: MIDAZOLAM 2 MG/2 ML VIAL IVP PRN (08:22)
[2018-04-02] MEDS ORDERED: MEPERIDINE 25 MG/ML SYR IVP PRN (08:22)
[2018-04-02] MEDS ORDERED: FLUMAZENIL 0.5 MG/5 ML MDV IVP PRN (08:22)
[2018-04-02] MEDS ORDERED: IOPAMIDOL (ISOVUE-300) 100 ML BTL ONE (08:29)
[2018-04-02] MEDS ORDERED: LIDOCAINE 1% 300 MG/30 ML SDV ONE (08:29)
[2018-04-02] MEDS ORDERED: NS 1,000 ML IV SCH (08:30)
[2018-04-02] MEDS ORDERED: MIDAZOLAM 2 MG/2 ML VIAL ONE ×2 (10:07→11:11)
[2018-04-02] MEDS ORDERED: fentaNYL 100 MCG/2 ML INJ ONE ×2 (10:07→11:07)
--- NOTE | 2018-04-02 11:31 | PDPROPOC ---
Sedation Plan of Care ASA Classification: ASA 2 Mallampati Score: Class 2 Mallampati Reference Image:
--- NOTE | 2018-04-02 11:32 | PDRADPN ---
Radiology Procedure Note Date of Procedure: 04/02/18 Radiologist: Libia Sanches Anesthesia: IV Sedation Pre-op Diagnosis: mild left hydro Post-op Diagnosis: same Procedure: left percutaneous nephrostomy tube Inf/Abcess present in the surg proc area at time of surgery?: No
[2018-04-02] MEDS ORDERED: chlorproMAZINE HCL 25 MG TAB PO PRN (14:04)
--- NOTE | 2018-04-02 14:11 | HOSPPROG ---
Hospitalist Progress Note Assessment/Plan: Assessment/Plan: 57 yo M w/ no significant PMHx presents with flank pain and found to have pancreatic mass and retroperitoneal nodule. Plan: Pancreatic Mass - FNA positive for malignancy. Final path pending, but suspect adenocarcinoma - Pain control: added fentanyl patch, cont prn oxy, dilaudid - Discussed with Dr. Troy, pt needs outpt PET CT for staging adam with close [facility] f/u Retroperitoneal nodule/Moderate Hydronephrosis/Urinary Retention. - perc tube placed today per IR - Cont casanova, flomax - Pain control as above Hyperkalemia- likely elevated in setting of urinary retention - resolved, monitor Diet - Regular Code - Full Ppx - LMWH Dispo - cont inpt, pt too sedated this afternoon with procedural meds for discharge, aim to dc in am. Subjective: Pt very sedated after perc tube, received IV versed and pain meds. No fevers/chills. Pain controlled. Objective: Vital Signs Temp Pulse Resp BP Pulse Ox 36.9 C 83 12 108/60 98 04/02/18 07:55 04/02/18 12:00 04/02/18 12:05 04/02/18 12:25 04/02/18 12:25 Laboratory Results 04/01/18 03:49 04/01/18 04/02/18 04/03/18 05:59 05:59 05:59 Intake Total 1000 300 Output Total 1450 1785 265 Balance -450 -1485 -265 PT 13.9 SEC (12.0-15.0) 03/30/18 03:10 INR 1.05 (0.83-1.16) 03/30/18 03:10 - Physical Exam Constitutional: no apparent distress Eyes: PERRL Ears, Nose, Mouth, Throat: moist mucous membranes Cardiovascular: regular rate and rhythym Respiratory: no respiratory distress, clear to auscultation Gastrointestinal: normoactive bowel sounds, soft, non-tender abdomen Skin: warm Musculoskeletal: full muscle strength Neurologic: AAOx3 Psychiatric: interacting appropriately ICD10 Worksheet Patient Problems: Problems Problem Status Onset Hydronephrosis Acute Left flank pain Acute Pancreatic abnormality Acute
[2018-04-03] MEDS: LORazepam 0.5 MG TAB PO PRN ×2 (01:01→23:58)
[2018-04-03] MEDS ORDERED: HYDROmorphone HCL 0.5 MG/0.5 ML SYR IVP PRN (01:34)
[2018-04-03] MEDS ORDERED: LORazepam 0.5 MG TAB PO PRN (01:34)
[2018-04-03] MEDS ORDERED: CYCLOBENZAPRINE 10 MG TAB PO PRN (01:39)
[2018-04-03] MEDS: PROCHLORPERAZINE MALEATE 5 MG TAB PO PRN ×2 (05:19→23:58)
--- NOTE | 2018-04-03 08:46 | HOSPPROG ---
Hospitalist Progress Note Assessment/Plan: Assessment/Plan: 57 yo M w/ no significant PMHx presents with flank pain and found to have pancreatic cancer and ureteral obstruction Plan: Pancreatic adenocarcinoma - pain control and oversedation is the only issue holding up his discharge - Pain control: cont low dose fentanyl patch plus prn oxy, d/c IV dilaudid due to oversedation - d/c flexeril - Discussed with Dr. Troy, pt needs outpt PET CT for staging adam with close [facility] f/u Retroperitoneal nodule/Moderate Hydronephrosis/Urinary Retention. - perc tube placed yesterday, draining adequately - Cont casanova, flomax - Pain control as above Hiccups - still a problem, only had one dose of thorazine last night - schedule thorazine Hyperkalemia- likely elevated in setting of urinary retention - resolved, monitor Diet - Regular Code - Full Ppx - LMWH Dispo - cont inpt, pt remains too sedated for discharge, aim to dc in am. Subjective: Pt sleepy, sedated. Initially says pain is controlled, then says 7/ 10 pain when I addressed possibility of discharge. No N/V. No fevers. Objective: Vital Signs Temp Pulse Resp BP Pulse Ox 36.8 C 83 16 142/78 H 99 04/03/18 08:00 04/03/18 08:00 04/03/18 08:00 04/03/18 08:00 04/03/18 08:00 Laboratory Results 04/01/18 03:49 04/02/18 04/03/18 04/04/18 05:59 05:59 05:59 Intake Total 300 2100 Output Total 1785 1765 Balance -1485 335 PT 13.9 SEC (12.0-15.0) 03/30/18 03:10 INR 1.05 (0.83-1.16) 03/30/18 03:10 - Physical Exam Constitutional: no apparent distress Eyes: PERRL Ears, Nose, Mouth, Throat: moist mucous membranes Cardiovascular: regular rate and rhythym Respiratory: no respiratory distress Gastrointestinal: normoactive bowel sounds, soft, non-tender abdomen Skin: warm Musculoskeletal: full muscle strength ICD10 Worksheet Patient Problems: Problems Problem Status Onset Hydronephrosis Acute Left flank pain Acute Pancreatic abnormality Acute
[2018-04-03] MEDS ORDERED: chlorproMAZINE HCL 25 MG TAB PO SCH (09:00)
[2018-04-03] MEDS: TAMSULOSIN HCL 0.4 MG CAP PO SCH (09:45)
[2018-04-03] MEDS: ENOXAPARIN 40 MG/0.4 ML SYR SC SCH (09:46)
[2018-04-03] MEDS: SENNOSIDES/DOCUSATE SODIUM TAB PO SCH ×2 (09:46→21:45)
--- NOTE | 2018-04-03 10:20 | SOAPPROG ---
JANEY Progress Note Assessment/Plan: Assessment and Plan: Isai is a very pleasant 57-year-old male who is presenting with a pancreatic mass. 1. Pancreatic adenocarcinoma: He underwent a endoscopic biopsy that demonstrated pancreatic adenocarcinoma. I reviewed his CT imaging that shows a 1.5 cm retroperitoneal lymph node. He otherwise has no other regional lymphadenopathy. He has no evidence of liver metastasis either. I recommended that a PET/CT be obtained to verify his staging prior to making decisions with regards to the treatment. He strongly is a posterior receiving any form of chemotherapy or radiation therapy that is not curative. I voiced my understanding of his concerns. As soon as he is ready for discharge he will follow up with Dr. Christopher Watson here in [place]. 2. Pain: He had initial issues with pain. Now he has some issues with ongoing sedation. I explained to him that there be a balance between having a little bit of pain and remaining awake and alert. I explained to him that if he has incurable disease and at that point we would discuss proceeding with hospice and being even more aggressive with regard to pain control. He voices understanding of this. All questions were answered in voices understanding of the plan. He had appropriate time to ask questions. 04/03/18 10:21 Subjective: He underwent a left percutaneous nephrostomy tube placement. He is significantly sedated today with pain medications. He endorses no pain. He has no shortness of breath cough or chest pain. Objective: Vital Signs Temp Pulse Resp BP Pulse Ox 36.8 C 83 16 142/78 H 99 04/03/18 08:00 04/03/18 08:00 04/03/18 08:00 04/03/18 08:00 04/03/18 08:00 Laboratory Results 04/01/18 03:49 04/02/18 04/03/18 04/04/18 05:59 05:59 05:59 Intake Total 300 2100 Output Total 1785 1765 Balance -1485 335 PT 13.9 SEC (12.0-15.0) 03/30/18 03:10 INR 1.05 (0.83-1.16) 03/30/18 03:10 Physical examination: Temp Pulse Resp BP Pulse Ox 36.8 C 83 16 142/78 H 99 04/03/18 08:00 04/03/18 08:00 04/03/18 08:00 04/03/18 08:00 04/03/18 08:00 O2 (L/minute) 2 General: Thin male heavily sedated follow some conversation HEENT: Dry mucous membranes, opiates clear extraocular movements are intact pupils equal round reactive to light Cardiovascular: Regular rhythm no murmurs gallops rubs Abdomen: Soft nontender nondistended bowel sounds are present left percutaneous nephrostomy tube is noted MSK: No cyanosis clubbing or edema Neuro: Answers some questions but quickly falls back asleep is moving all extremities ICD10 Worksheet Patient Problems: Problems Problem Status Onset Hydronephrosis Acute Left flank pain Acute Pancreatic abnormality Acute
--- NOTE | 2018-04-03 13:20 | ASMTCMCOM ---
CM Note CM Note Notes: Patient seen and plan of care reviewed in interdisciplinary rounds. The patient remains quite sedated and is unsafe for discharge to home today. Medications are being adjusted. Patient will need PET scan to determine staging of pancreatic adenocarcinoma and appropriate treatment. CM to follow for needs. Likely to dc independent to home with good support. Plan: Likely discharge to home tomorrow. Date Signed: 04/03/2018 01:00 PM Electronically Signed By:Corinne Han RN
[2018-04-03] MEDS: BACLOFEN 10 MG TAB PO SCH ×2 (16:14→21:45)
[2018-04-03] MEDS: oxyCODONE IR 5 MG TAB PO PRN (23:58)
[2018-04-04] MEDS: oxyCODONE IR 5 MG TAB PO PRN ×4 (10:01→21:06)
[2018-04-04] MEDS: BACLOFEN 10 MG TAB PO SCH ×3 (10:01→21:06)
[2018-04-04] MEDS: TAMSULOSIN HCL 0.4 MG CAP PO SCH (10:01)
[2018-04-04] MEDS: SENNOSIDES/DOCUSATE SODIUM TAB PO SCH ×2 (10:02→21:07)
[2018-04-04] MEDS: ENOXAPARIN 40 MG/0.4 ML SYR SC SCH (12:02)
--- NOTE | 2018-04-04 13:22 | ASDISCHSUM ---
Discharge Information Plan Status:Home with No Needs Medically Cleared to Leave:04/04/2018 Discharge Date:04/04/2018 CM D/C Disposition:Home, Routine, Self-Care ADT D/C Disposition:Home, Routine, Self-Care Projected Discharge Date:04/04/2018 Transportation at D/C:Family Discharge Delay Reason: Follow-Up Date:04/04/2018 Discharge Slot: Final Diagnosis: Placement Information Patient Contact Information Contact Name:KAREN Relationship: Address:[address] [place] [address] City:[place] Alternate Phone: [facility]/Zip Code:[place] [address] Email: Financial Information Financial Class:HMO and PPO Plans Primary Plan Desc:[facility] Primary Plan Number:[id number] Secondary Plan Desc: Secondary Plan Number: Assessment Information [facility] CM Progress Note CM Note CM Note Notes: Chart reviewed. 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 Per CT there is a pancreatic lesion of unknown etiology He is undergoing diagnostics. CM to follow for needs. Plan: TBD Date Signed: 03/29/2018 02:56 PM Electronically Signed By:Corinne Han RN [facility] CM Progress Note CM Note CM Note Notes: Patient discussed in rounds today. Independent prior to current admission. C/O urinary issues and constipation. For biopsy this PM. CM to follow for needs. Plan: TBD Date Signed: 03/30/2018 02:43 PM Electronically Signed By:Corinne Han RN [facility] Progress Note CM Note CM Note Notes: Patient's FNA came back positive for malignancy. Oncology will consult today. Patient also trying to coordinate with urology to resolve issue of Joseph v stent v indwelling cath before being discharged. He will contact his outpatient urologist to get her insight. Palliative consult ordered today given results of biopsy. CM will follow for any discharge needs. Date Signed: 03/31/2018 11:46 AM Electronically Signed By:Grace Griffin RN [facility] CM Progress Note CM Note CM Note Notes: Patient discussed and seen in interdisciplinary rounds. Final pathology on pancreatic mass pending. Pain fairly well controlled. Urology in to see. Plan will be a stent. Discharge needs remain TBD at this time. CM to follow. Plan: TBD Date Signed: 04/01/2018 02:45 PM Electronically Signed By:Corinne Han RN [facility] Progress Note CM Note CM Note Notes: Patient seen and plan of care reviewed in interdisciplinary rounds. The patient remains quite sedated and is unsafe for discharge to home today. Medications are being adjusted. Patient will need PET scan to determine staging of pancreatic adenocarcinoma and appropriate treatment. CM to follow for needs. Likely to dc independent to home with good support. Plan: Likely discharge to home tomorrow. Date Signed: 04/03/2018 01:00 PM Electronically Signed By:Corinne Han RN Case Management Discharge Plan Note Case Management Discharge Discharge Order Complete? Answers: Yes Patient to Obtain Answers: via Family Medications Transportation Arranged Answers: Family/Friends Discharge Comments Notes: Pt is discharging home today with no CM needs. Date Signed: 04/04/2018 01:20 PM Electronically Signed By:SAMMIE Montelongo Intervention Information
--- NOTE | 2018-04-04 13:23 | ASMTLACE ---
AMOSE Length of stay for Answers: 1 day current admission Acuity / Level of Answers: Yes Care: Did the patient have an inpatient admission? # of Emergency department Answers: 1-2 visits in the last 6 months Score: 5 Date Signed: 04/04/2018 01:22 PM Electronically Signed By:SAMMIE Montelongo
--- NOTE | 2018-04-04 17:29 | GDS ---
DISCHARGE DIAGNOSES: 1. Pancreatic adenocarcinoma. 2. Moderate left-sided hydronephrosis secondary to compressive retroperitoneal nodule. 3. Hyperkalemia, resolved. 4. Oncologic pain. CONSULTANTS: 1. Dr. Ricardo Pfeiffer, Gastroenterology. 2. Dr. Christopher Watson, oncology. 3. Marina Sherman, urology. PROCEDURES: 1. Endoscopic ultrasound March 30, 2018, performed by Dr. Michele Peraza, showed normal esophagus, hi atal hernia, erythematous mucosa in the gastric body and antrum which was biopsied. Normal duodenum. A mass was identified in the pancreatic body. Fine-needle aspiration was performed and pathology i s positive for adenocarcinoma. 2. Percutaneous nephrostomy tube placement performed April 02, 2018, by Dr. Libia Sanches. HISTORY OF DETAILS: Please see history and physical dated March 29, 2018. In brief, the patient is a 57-year-old male who has been otherwise healthy, who presented to the emergency department with left flank pain. CT scan in the emergency department revealed a pancreatic body neoplasm and moderat e left hydronephrosis in the setting of a 1.5 cm retroperitoneal nodule. He was admitted to the [facility] for further management. HOSPITAL COURSE: Patient admitted to the Oncology Unit. GI consult was obtained. He underwent endo scopic ultrasound for tissue diagnosis of pancreatic adenocarcinoma. In addition, his CA-19-9 and CE A tumor markers were elevated. He had significant pain related to his left-sided hydronephrosis. He underwent percutaneous nephrostomy tube placement. Pain control was an issue during his hospitaliza tion. He required multiple IV and short-acting opiates and ultimately, a fentanyl patch was placed a t 12 mcg. However, he was very sedated on this and this had to be removed. His mentation dramatical ly improved upon removal of the fentanyl patch. His pain going forward will be managed with p.r.n. o xycodone. The Joseph catheter was removed prior to discharge, though it is noted he is at risk for ur inary retention with opioid and benzodiazepine use. On the day of discharge, his pain is controlled. Vital signs are stable. DISPOSITION: Patient is discharged home in stable condition. FOLLOWUP: 1. Dr. Christopher Watson, oncology, who will arrange outpatient PET-CT for staging and further treatment options pending results of his PET-CT. 2. Dr. Kevin Steward. DISCHARGE MEDICATIONS: Please see [facility] completed outpatient medication list. New medications on discharge include: Tylenol 650 mg p.o. q.4 hours p.r.n.; Baclofen 10 mg p.o. t.i.d. #30 p.r.n. for hiccups; Ativan 0.5 mg p.o. at bedtime p.r.n. #30, no refills; oxycodone 5-10 mg p.o. q.3 hours p.r.n . #30, no refills; Zofran 4 mg p.o. q.4 hours p.r.n. #20, no refills. /[id number]/MODL
[2018-04-04] MEDS: PROCHLORPERAZINE MALEATE 5 MG TAB PO PRN (21:07)
[2018-04-04] MEDS: LORazepam 0.5 MG TAB PO PRN (21:07)
[2018-04-05] MEDS: oxyCODONE IR 5 MG TAB PO PRN ×2 (00:10→09:09)
[2018-04-05] MEDS ORDERED: HYDROmorphONE/DILAUDID 1 MG/ML INJ IVP ONE (00:50)
[2018-04-05] MEDS ORDERED: LORazepam 0.5 MG TAB PO PRN (00:51)
[2018-04-05] MEDS ORDERED: LORazepam 2 MG/ML INJ IM ONE (01:04)
[2018-04-05 08:57] VITALS: BP 139/81
[2018-04-05] MEDS: TAMSULOSIN HCL 0.4 MG CAP PO SCH (09:09)
[2018-04-05] MEDS: SENNOSIDES/DOCUSATE SODIUM TAB PO SCH (09:09)
[2018-04-05] MEDS: BACLOFEN 10 MG TAB PO SCH (09:09)
[2018-04-05] MEDS ORDERED: BACLOFEN 10 MG TAB PO SCH (09:17)
--- NOTE | 2018-04-05 09:20 | PDDCSUM ---
Discharge Summary Discharge Summary: Please see complete DC summary from 04/04/2018 for details. Pt was discharged yesterday after casanova removal, but was unable to void. Casanova replaced and he will d/c with casanova catheter and percutaneous nephrostomy tube. Follow up with Dr. Mathis. Today, vitals are stable, mentation normal.
[2018-04-05] MEDS: BISACODYL 10 MG SUPP PR PRN (10:28)
[2018-04-05] MEDS: ENOXAPARIN 40 MG/0.4 ML SYR SC SCH (12:01)
--- NOTE | 2018-04-05 12:05 | ASMTCMCOM ---
CM Note CM Note Notes: Patient dc home with nephrosotmy tubes and indwelling casanova catheter. Has large support group. Reiterated need to schedule f/u adam as patient going home independently and with need to see Urology for nephrostomy and casanova management. Plan: Home with support. Date Signed: 04/05/2018 12:05 PM Electronically Signed By:Corinne Han RN
== END 2018-04-05 11:48 | disposition home or self-care (01) | DRG 436 ==
LOC: F1N 05:07 → OBSVTOIN 03-30 16:27
PROVIDERS: ADMIT Student in an Organized Health Care Education/Training Program; ATTEND Student in an Organized Health Care Education/Training Program
DX: C25.1 Malignant neoplasm of body of pancreas (principal); R19.09 Other intra-abdominal and pelvic swelling, mass and lump; N13.39 Other hydronephrosis; E87.5 Hyperkalemia; G89.3 Neoplasm related pain (acute) (chronic); K44.9 Diaphragmatic hernia without obstruction or gangrene
CPT/HCPCS: 86301-90; 96374; C1729; C1769; G0378; J0330; J0696; J1100; J1170; J1650; J2060; J2250; J2270; J2310; J2405; J2704; J3010; J3360; Q9967

== ENCOUNTER 2018-04-06 05:10 | Inpatient (IN) | payer OTHER ==
[2018-04-06] MEDS ORDERED: DIAZEPAM 5 MG TAB PO PRN ×2 (05:21→08:20)
[2018-04-06] MEDS ORDERED: CYCLOBENZAPRINE 10 MG TAB PO PRN (05:21)
[2018-04-06] MEDS ORDERED: MAGNESIUM HYDROXIDE 30 ML UDCUP PO PRN (05:40)
[2018-04-06] MEDS: oxyCODONE IR 5 MG TAB PO PRN ×4 (05:43→23:36)
[2018-04-06] MEDS: ONDANSETRON 4 MG/2 ML VIAL IVP PRN (05:44)
[2018-04-06] MEDS ORDERED: HYDROmorphONE/DILAUDID 2 MG/ML INJ IVP ONE ×2 (06:16→08:00)
[2018-04-06] MEDS: BISACODYL 10 MG SUPP PR PRN (06:39)
[2018-04-06] MEDS: SENNOSIDES/DOCUSATE SODIUM TAB PO SCH ×2 (08:07→20:22)
--- NOTE | 2018-04-06 08:12 | PDGENHP ---
History and Physical - Chief Complaint pain - History of Present Illness 58 yo male who was recently diagnosed with pancreatic cancer, requiring percutaneous nephrostomy tube for left sided hydronephrosis related to ureteral obstruction from retroperitoneal mass, returned to outside hospital within 24 hrs of discharge complaining of intractable pain. He requested frequent opioid and benzodiazepine dosing during prior hospitalization and wound up very over- sedated on several occasions, raising safety concerns. Medications were reduced and his fentanyl patch was removed. He was treated with prn oral oxycodone and pain was well controlled yesterday at time of discharge. His casanova was removed prior to discharge, but replaced due to urinary retention , likely due to medications. There has been no evidence of bladder outlet obstruction. No fevers, chills, nausea or vomiting. This morning, he states that he would like to have a RN at home to give him frequent "IV pushes" citing his need for ongoing IV pain medication. He is also frustrated about not being able to get an inpatient PET CT, citing that he has failed attempt at outpatient follow up. He is readmitted for pain control. History Information - Allergies/Home Medication List Allergies/Adverse Reactions: No Known Allergies Allergy (Verified 03/29/18 01:17) Home Medications: NK [No Known Home Meds] 04/06/18 [Last Taken Unknown] I have personally reviewed and updated: family history, medical history, social history, surgical history - Past Medical History no pertinent PMH Additional medical history: Pancreatic adenocarcinoma. Left hydronephrosis secondary to ureteral obstruction s/p percutaneous nephrostomy tube 03/2018 - Surgical History Reports: no pertinent surgical hx - Social History Smoking Status: Never smoked Alcohol Use: None Drug Use: None Additional social history: . 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 Review of Systems Review of Systems: ROS: 10pt was reviewed & negative except for what was stated in HPI & below Physical Exam Physical Exam: Temp Pulse Resp BP Pulse Ox 36.6 C 69 16 131/75 H 98 04/06/18 05:36 04/06/18 05:36 04/06/18 05:36 04/06/18 05:36 04/06/18 05:36 O2 (L/minute) 2 Constitutional: no apparent distress Eyes: PERRL Ears, Nose, Mouth, Throat: moist mucous membranes Cardiovascular: regular rate and rhythym Respiratory: no respiratory distress, clear to auscultation Gastrointestinal: normoactive bowel sounds, soft, non-tender abdomen Skin: warm Musculoskeletal: full muscle strength Neurologic: AAOx3 Psychiatric: interacting appropriately Lab Data & Imaging Review 04/06/18 15:40 04/06/18 15:40 Assessment & Plan Assessment: Pancreatic adenocarcinoma - returned within 24 hrs of discharge due to intractable pain. It seems he is having difficulty coping, poor symptom management and has frequently been overmedicated and sedated since diagnosis. He was very sedated on lowest dose of fentanyl during previous hospitalization, which was removed and mentation improved. Needs PET CT for staging. -prn oxycodone plus IV dilaudid is currently controlling his pain, consider addition of MS Contin -IR consult to consider nerve block, discussed with Dr. Bowman. Unclear if this would be of benefit, but IR will consult tomorrow -I've requested CM and RN meter and regulator shop supervisor look into option to get PET CT as inpatient (apparently this is only done as outpt, but pt readmitted within 24 hrs of discharge, failed outpt management and he is upset that this can't be done as inpt) -palliative care consult requested for increased outpt support and symptom management, discussed with Dr. Fournier who will see pt tomorrow -discussed with oncology, requested support in proceeding with inpatient PET CT for staging and tx options if possible -recheck cbc and cmp Left sided hydronephrosis s/p perc tube - this was initial pain issue, which is improved. u/s done at OSH, no recurrent hydro, perc tube draining. -outpt urology f/u Urinary retention - likely 2/2 opiates and bzds, failed voiding trial when casanova was removed prior to d/c. He was discharged with casanova. No fevers or e/ o infection. -cont casanova Hiccups - baclofen, prn thorazine Full code Dispo - cont inpt for pain management and symptom control. Palliative care saw today, will work towards outpt palliative involvement for better symptom management. Discussed with oncology, palliative care, case management and RN.
--- NOTE | 2018-04-06 09:58 | ASMTCMCOM ---
CM Note CM Note Notes: One of the patient's friends came to the front load trash truck driver and asked for a medical release form. Form provided. He then stated [facility] reusing to do PET scan. This CM tried to explain that the PET scan was usually deferred to the out patient setting when appropriate and that this patient was expected to be able to arrange the put paitent testing through his oncologist. This corporate communications associate told me that he worked at [facility] and does not feel that it is routine to defer the testing to the outpatient setting. Clearly despite what appears to be a great deal of friends and partner for support the patient is having difficulty coping with facing a serious diagnosis and this may be exacerbating his symptoms. Per discussion with Dr. Mccarty and Oncology virtual classroom manager Mariia Olivas an appeal will be made to pursue PET scan to be done while inpatient. The patient was unsuccessful at discharge to home and in fact sought care at an outside facility and was then readmitted here. Patient feel he is in need of IV medications to control his symptoms at this time. CM to follow. Plan: TBD Date Signed: 04/06/2018 09:57 AM Electronically Signed By:Corinne Han RN
[2018-04-06] MEDS: HYDROmorphone HCL 0.5 MG/0.5 ML SYR IVP PRN ×3 (10:59→20:21)
[2018-04-06] MEDS: PROMETHAZINE HCL 25 MG/ML INJ IVP PRN ×2 (11:03→20:22)
[2018-04-06] MEDS ORDERED: NS 1,000 ML IV SCH (12:15)
[2018-04-06] MEDS ORDERED: chlorproMAZINE HCL 25 MG TAB PO PRN (12:24)
--- NOTE | 2018-04-06 13:33 | ASMTCMCOM ---
CM Note CM Note Notes: Patient seen by oncology. Palliative care consulted. Patient seen by Stefano Lundberg, and referral placed to [facility]. Called and spoke with Vernell and requested inpatient consultation with Palliative care physician to assist patient with meeting his needs for pain control and psychological support. Referral placed in alllscripts. CM to follow. Plan: TBD Date Signed: 04/06/2018 01:33 PM Electronically Signed By:Corinne Han RN
--- NOTE | 2018-04-06 15:48 | PDMN ---
Medical Necessity Medical necessity: MCG: M05 abd pain undg: recent admit req percutaneous nephrostomy tube for L sided hydronephrosis r/t ureteral obstruction from retroperitoneal mass returning due to intractable pain, pt recently Dg with pancreatic Ca., Pt having poor pain relief/ coping at home -freq. overmedicated and sedated since Dg. failed outpt management, IV meds: IV Zofran, IV Phenergan, IVF, IV dilaudid, further monitoring and tx needed anticipate > 2 MN.
[2018-04-06 15:55] LABS: PLATELET COUNT 321 10^3/uL (150-400)
[2018-04-06] MEDS: BACLOFEN 20 MG TAB PO SCH ×2 (16:05→20:22)
[2018-04-07] MEDS: HYDROmorphone HCL 0.5 MG/0.5 ML SYR IVP PRN ×7 (00:26→21:22)
[2018-04-07] MEDS: LORazepam 0.5 MG TAB PO PRN ×2 (00:26→03:37)
[2018-04-07] MEDS: oxyCODONE IR 5 MG TAB PO PRN ×4 (03:20→16:36)
[2018-04-07] MEDS: PROMETHAZINE HCL 25 MG/ML INJ IVP PRN (06:30)
--- NOTE | 2018-04-07 08:08 | HOSPPROG ---
Hospitalist Progress Note Assessment/Plan: #Pancreatic carcinoma: oncology to consult #Intractable pain -IR evaluated for possible celiac/SMA block, but not great candidate now based on location or symptoms, side effects -Added MS Contin, gabapentin. Dr. Fournier with [facility] evaluating today. -Monitor for oversedation #Left-sided hydronephrosis: s/p nephrostomy tube #Urinary retention: casanova in place #DVT ppx: declines Lovenox #Disp: inpatient admission for pain control Subjective: pain uncontrolled overnight. Achey, left flank pain to groin Objective: Vital Signs Temp Pulse Resp BP Pulse Ox 36.4 C 73 16 155/80 H 94 04/07/18 04:00 04/07/18 04:00 04/07/18 04:00 04/07/18 04:00 04/07/18 04:00 Laboratory Results 04/06/18 15:40 04/06/18 15:40 04/06/18 04/07/18 04/08/18 05:59 05:59 05:59 Intake Total 650 Output Total 475 1500 Balance -475 -850 - Time Spent With Patient Time Spent with Patient: greater than 35 minutes Time Spent with Patient: Greater than 35 minutes spent on this patients care, greater than 50% of time spent counseling, educating, and coordinating care regarding the above mentioned plan. - Physical Exam Constitutional: no apparent distress Eyes: PERRL Ears, Nose, Mouth, Throat: moist mucous membranes Cardiovascular: regular rate and rhythym Gastrointestinal: normoactive bowel sounds, other (TTP left flank, groin. No rebound or guarding) Genitourinary: casanova in urethra, other (perc tube ) Musculoskeletal: full muscle strength Neurologic: AAOx3, CN II-XII Intact Psychiatric: interacting appropriately ICD10 Worksheet Patient Problems: Problems Problem Status Onset Hydronephrosis Acute Left flank pain Acute Pancreatic abnormality Acute
[2018-04-07] MEDS: SENNOSIDES/DOCUSATE SODIUM TAB PO SCH ×2 (08:19→20:21)
[2018-04-07] MEDS: BACLOFEN 20 MG TAB PO SCH ×3 (08:20→20:21)
--- NOTE | 2018-04-07 13:36 | ASMTCMCOM ---
CM Note CM Note Notes: Patient's plan of care discussed in interdisciplinary rounds. Patient to have visit from [facility] today. Known metastatic disease process. Order placed via allscripts to [facility]. Patient sedated and was seen by Oncology Nurse Navigator but was very groggy. Large supportive group of friends visiting throughout the day.CM to follow for needs. Plan: TBD Date Signed: 04/07/2018 01:35 PM Electronically Signed By:Corinne Han RN
[2018-04-07] MEDS: LACTULOSE 20 GM/30 ML UDCUP PO PRN (15:36)
--- NOTE | 2018-04-07 16:04 | ASMTCMCOM ---
CM Note CM Note Notes: Patient evaluated by Dr. Fournier for palliative care. 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 He states his pain is not controlled but he is amenable to exploring opiate medication regimes to provide pain control, a sleep aide and from there perhaps reitalin to assist him with the side of effects of his disease and medications. He often goes off and tells tangential stories in an attempt to make clear his personal feelings and at times became tearful. Overall he seems to be willing to move towards pain control, discharge and then obtaining PET scan as an outpatient to be accurately staged for appropriate treatment. CM to follow. Recommend [facility] to follow. Plan: TBD Date Signed: 04/07/2018 04:03 PM Electronically Signed By:Corinne Han RN
--- NOTE | 2018-04-07 17:11 | PDCONSULT ---
Accredited Legal Secretary Note: Patient is a 58-year-old male with a recent diagnoses of likely metastatic pancreatic adenocarcinoma who presents to the hospital for uncontrolled pain. Patient was recently discharged on April 05 after being admitted for renal colic/pancreatic pain. At that admission he was found to have a pancreatic mass which was biopsy proven adenocarcinoma as well as a left retroperitoneal lymph node which caused ureteral obstruction. Nephrostomy tube was placed however pain was an issue during that admission in particular issues related to increased somnolence versus uncontrolled pain. Patient went home feeling relatively well however his pain spiked overnight 2/10 out of 10 in pain severity he reports the pain is mainly in the right flank with some radiation down the spine and into the right pelvis. 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 He denies significant history of alcohol drugs or tobacco. Occasional wine. Family history: Patient is adopted, but reports father of presumed lung cancer in his 60s Physical examination: Vital signs reviewed General: No acute distress appearing nontoxic-appearing male appears younger than stated age HEENT: Pupils equal round reactive to light no scleral icterus or conjunctival pallor is appreciated oral mucosa is moist without any evidence of oral pharyngeal lesions Cardiovascular: Regular rate and rhythm without rubs chills gallops or murmurs Chest: Clear to auscultation and percussion bilateral posterior lungs Abdomen: Distended, diffusely tender to palpation without rebound or guarding Extremities: Warm and well perfused 2+ dorsalis pedis and radial pulses bilaterally no lower extremity edema Neuro: Cranial nerves II through XII are grossly intact 5 out of 5 upper and lower extremity strength bilaterally Labs in EMR reviewed Assessment & Plan Assessment: Patient is a 58-year-old male with recently diagnosed likely metastatic pancreatic adenocarcinoma admitted for pain control. Problem #1cancer related pain Patient has had a crescendo and symptoms of pain over the last few weeks. Pain is mostly abdominal in nature and opiate pain strategies have been limited by somnolence. He is currently receiving oxycodone and as needed hydromorphone. Pain seems to be colicky/paroxysmal in nature. He is meeting with palliative care physician which I recommend for symptom management. He is also meeting with an interventional radiologist to discuss celiac plexus block. Problem #2metastatic adenocarcinoma of the pancreas Patient has a pancreatic body tail mass which is biopsy-proven adenocarcinoma. He also has a retroperitoneal, noncontiguous, lymph node which is also enlarged and caused ureteral obstruction. This is likely also account development representative of disease. Given patient's severe symptom burden and elevated CA-19-9 is likely we are underestimating the current extent of his disease. When patient is stable from a pain and oral intake standpoint and then nonurgently have a PET CT scan as an outpatient follow-up with me to discuss further therapy. Christopher Watson
--- NOTE | 2018-04-07 18:03 | GCON ---
PALLIATIVE MEDICINE CONSULT. CHIEF COMPLAINT: Dr. Delilah Mccarty and Dr. Mariela Wilder requests goals of care conversation as well as assistance with symptom management. HISTORY OF PRESENT ILLNESS: This is a 58-year-old gentleman who was recently diagnosed with adenocarcinoma of the pancreas. He was originally admitted to the hospital from March 30 through April 05. He had left flank pain on admission, and was found to have left-sided hydronephrosis as well as a pancreatic head mass. He had a left nephrostomy tube placed. He had difficult- to-control pain while in the hospital and while it eventually appeared to be managed, unfortunately on the date of discharge, he returned with a pain crisis. In addition, to the nephrostomy tube, he is also requiring an indwelling Casanova catheter. As stated above, he was readmitted on April 06 for a pain crisis. Since then, he has been given baclofen 20 mg 3 times daily, Thorazine as needed, Dilaudid 0.5 mg every 3 hours as needed. He has been using that almost every 3 hours. He is also receiving Ativan as needed every 6 hours. He states he uses this primarily for sleep. He also had oral oxycodone 10 mg almost every 4 hours which is how it is prescribed, as needed. I meet with the patient and his case reviewer, Radha, to discuss his goals as well as his pain. He shares with me that "I have been preparing to since I was a teenager." He is struggling emotionally with how his is going to occur. He never envisioned it would happen with him weakened and in bed. He thought it would happen while he was rock climbing or doing something more adventurous. He states that while at times his pain is better controlled, it always worsens at night. He has not identified any inciting factor for these pain crises. He feels his pain simply gets worse at night when things are more quiet. He states last night he was screaming, "thank you" over and over again, because he had a fantastic life. He is trying to be accepting of the pain. 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 He seems to have some fears surrounding painful , however also is aware that if he were to commit suicide, his would not get his insurance policy which is also very important to him. He describes his pain as being all over his back and abdomen and moves around. He had used oxycodone prior to his hospitalization, but it eventually became ineffective. He has also explored CBD products and these were effective only for short time. We discussed finding a level of pain relief that will give him an acceptable functional level including cognitively, as well as an acceptable pain control level. I advised not to focus on a number scale to measure his pain. He has a goal of wanting to finish a manual that integrates osteopathic medicine and [place] medicine. In addition to completing this manual, being able to be intimate with his one last time is also very important to him. He recognizes that his indwelling casanova catheter is a barrier to this intimacy. In order to finish the book, he states he would need at least 2 hours of productive time per day and it would take approximately 6 months. REVIEW OF SYSTEMS: He has had weight loss, pain and constipation. He has intermittent nausea and vomiting with declining appetite. He has a rash on his back that causes some itching as well. PAST MEDICAL HISTORY: Essentially none. He did have a hemorrhoidectomy in his 20s. SOCIAL HISTORY: He does not smoke. He drinks approximately 6 alcoholic beverages per week. He would want his as his decision maker should he be unable to make decisions for himself and wishes to be DNR DNI. MEDICATIONS: As reviewed in [facility]. ALLERGIES: None known. FAMILY HISTORY: He was adopted. PHYSICAL EXAM: VITAL SIGNS: His most recent vital signs show a blood pressure of 151/77, heart rate of 74, he is saturating 96% on room air with a respiratory rate of 16, and is afebrile with a temperature of 36.4 degrees Celsius. GENERAL: Alert and oriented x3. Articulate and eager to converse. No apparent distress. Appears quite comfortable throughout my entire visit of 90 minutes with the exception of 1 vomiting episode after taking lactulose near the end of my visit. HEENT: He has temporal wasting bilaterally. His hearing is intact. There is no icterus. CARDIOVASCULAR: Regular rate and rhythm. RESPIRATORY: Clear to auscultation bilaterally. GASTROINTESTINAL: Positive bowel sounds. MSK: able to walk independently up and down the hospital halls. LABORATORY AND IMAGING STUDIES REVIEWED. ASSESSMENT AND PLAN: This is a 58-year-old gentleman with pancreatic adenocarcinoma. He has had a prolonged hospital stay secondary to very [id number] pain. Because of this, he has not been able to follow up with Oncology as an outpatient to obtain a PET scan for staging and to discuss treatment options. 1. Pain. I spoke with Dr. Wilder earlier and I agree with starting a long- acting pain medicine. We discussed starting MS Contin 30 mg twice daily. After 3 doses he will have reached a steady state. If he continues to require more than 4 doses of as needed pain medicine, I would titrate this up to 45 mg twice daily. Again, after 3 doses, he will have reached a steady state and further titration can occur. With regard to break through pain, I would recommend switching from oxycodone which he had already been failing as an outpatient, to Dilaudid. He can use 2-4 mg by mouth every 4 hours as needed for pain control. 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 I discussed that he may develop tolerance to the sedative affects of the opioids, however his cancer will also be contributing to his fatigue. After he is on a stable pain regimen, I did discuss initiation of Ritalin, which would likely occur as an outpatient to aid in appetite and energy. Furthermore, I agree with the use of gabapentin as an adjunct for both pain relief as well as to treat the pruritus associated with the rash on his back. 2. Constipation. He has been encouraged to use his [place] herbal remedies as well as the laxatives available in the hospital. He is still having flatus. He is aware of the constipating effect of opioids and is willing to take any aggressive laxative regimen recommended. He did share that he would prefer to have profuse diarrhea in order to clean himself out at this point, as opposed to ongoing constipation. 3. Insomnia. While there is a component of poor pain control related to this, there is likely also a component of emotional distress. The patient denies anxiety but I believe it is still present. 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 Trazodone 100 mg at bedtime could be used either with or without the Ativan to improve sleep duration and quality. 4. Goals. We did discuss hospice. 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 He feels that at this time in order to achieve these goals he will need to pursue a consultation with the oncologist to determine what treatment is available and how it will not only affect the quantity of his life but also the quality of his life. He voiced understanding that he would need to be on an entirely oral pain regimen in order to achieve these goals. I did discuss that with hospice, continuous infusions of pain medicine are often done, but that would most likely prohibit him from achieving his goal of finishing the book. With regards to resuming intimacy with his , if he remains dependent on a casanova catheter , perhaps a transition to intermittent self-straight catheterization would be an option. Please note that 120 minutes have been spent on this consult with far greater than 50% of the time in [id number] counseling and assessment of the patient. /[id number]/MODL MTDD
[2018-04-07] MEDS: HYDROmorphONE/DILAUDID 2 MG TAB PO PRN ×2 (19:07→22:51)
[2018-04-07] MEDS: morphINE SR 30 MG TAB PO SCH (20:21)
[2018-04-07] MEDS: BISACODYL 10 MG SUPP PR PRN (20:21)
[2018-04-07] MEDS: GABAPENTIN 300 MG CAP PO SCH (20:21)
[2018-04-07] MEDS ORDERED: morphINE SR 15 MG TAB PO SCH (21:00)
[2018-04-07] MEDS ORDERED: traZODone 50 MG TAB PO SCH (21:00)
[2018-04-07] MEDS: traZODone 50 MG TAB PO PRN (22:53)
[2018-04-08] MEDS: HYDROmorphone HCL 0.5 MG/0.5 ML SYR IVP PRN ×3 (02:52→23:19)
[2018-04-08] MEDS: ONDANSETRON 4 MG/2 ML VIAL IVP PRN ×3 (02:52→20:38)
[2018-04-08] MEDS: HYDROmorphONE/DILAUDID 2 MG TAB PO PRN ×3 (03:59→21:50)
--- NOTE | 2018-04-08 09:08 | HOSPPROG ---
Hospitalist Progress Note Assessment/Plan: #Intractable pain: improved -IR evaluated for possible celiac/SMA block, but not great candidate now based on location or symptoms, side effects -Uptitrate MS Contin tomorrow if needed, PRN Dilaudid -Monitor for oversedation #Pancreatic carcinoma: oncology to further stage as outpatient #Nausea/vomiting: likely opioid-related. AXR reassuring, constipation, no obstruction -Ativan, Zofran. Did not tolerate Phenergan. Zydis if needed #Left-sided hydronephrosis: s/p nephrostomy tube #Urinary retention: casanova in place #DVT ppx: declines Lovenox #Disp: inpatient admission for pain control Subjective: vomiting, weak. 2 small BMs Objective: Vital Signs Temp Pulse Resp BP Pulse Ox 36.6 C 80 16 137/92 H 97 04/08/18 08:51 04/08/18 08:51 04/08/18 08:51 04/08/18 08:51 04/08/18 08:51 Laboratory Results 04/06/18 15:40 04/06/18 15:40 04/07/18 04/08/18 04/09/18 05:59 05:59 05:59 Intake Total 650 300 Output Total 1500 1300 Balance -850 -1000 - Time Spent With Patient Time Spent with Patient: greater than 35 minutes Time Spent with Patient: Greater than 35 minutes spent on this patients care, greater than 50% of time spent counseling, educating, and coordinating care regarding the above mentioned plan. - Physical Exam Eyes: PERRL Ears, Nose, Mouth, Throat: moist mucous membranes Cardiovascular: regular rate and rhythym Respiratory: no respiratory distress Gastrointestinal: normoactive bowel sounds (quiet, but present throughout), other (left flank TTP ), No guarding, No rebound Skin: warm Musculoskeletal: full muscle strength Neurologic: AAOx3, CN II-XII Intact Psychiatric: interacting appropriately, anxious ICD10 Worksheet Patient Problems: Problems Problem Status Onset Hydronephrosis Acute Left flank pain Acute Pancreatic abnormality Acute
[2018-04-08] MEDS: morphINE SR 30 MG TAB PO SCH ×2 (09:14→23:49)
[2018-04-08] MEDS: SENNOSIDES/DOCUSATE SODIUM TAB PO SCH ×2 (09:19→23:54)
[2018-04-08] MEDS: BACLOFEN 20 MG TAB PO SCH (09:41)
[2018-04-08] MEDS ORDERED: morphINE SR 30 MG TAB PO ONE (10:45)
[2018-04-08] MEDS: LORazepam 0.5 MG TAB PO PRN ×2 (11:51→22:47)
--- NOTE | 2018-04-08 13:43 | ASMTCMCOM ---
CM Note CM Note Notes: Patient plan of care reviewed in interdisciplinary rounds. 58 year old male with new diagnosis of pancreatic cancer, hydronephrosis (s/p stent) and urinary retention (casanova) dcd on the and readmitted the with intractable pain issues. Seen by Palliative care physician Dr. Fournier for Dirk and is being treated with recommended medications regiment. Last night as the previous night he had outburst stemming from reported "pain" which per the patient's account includes the pain of his situation. Goal is to achieve acceptable level of pain so that he may discharge and get his PET scan and explore treatment options with his oncologist. CM to follow for needs. Likely to benefit from C RN regarding his multiple concerns. Otherwise independent physically with no needs for other services. CM to follow. Plan: Likely home with [facility] when medically cleared for discharge. Date Signed: 04/08/2018 01:42 PM Electronically Signed By:Corinne Han RN
[2018-04-08] MEDS ORDERED: OLANZapine DISINTEGR 5 MG TAB PO PRN (15:46)
[2018-04-08] MEDS: OLANZapine DISINTEGR 5 MG TAB PO PRN (22:47)
[2018-04-08] MEDS: ACETAMINOPHEN 325 MG TAB PO PRN (23:29)
[2018-04-08] MEDS: GABAPENTIN 300 MG CAP PO SCH (23:54)
[2018-04-09] MEDS: LORazepam 0.5 MG TAB PO PRN ×2 (05:43→22:16)
[2018-04-09] MEDS: HYDROmorphone HCL 0.5 MG/0.5 ML SYR IVP PRN (05:43)
[2018-04-09] MEDS: ONDANSETRON 4 MG/2 ML VIAL IVP PRN ×2 (09:11→20:02)
[2018-04-09] MEDS: OLANZapine DISINTEGR 5 MG TAB PO PRN ×2 (09:37→22:12)
--- NOTE | 2018-04-09 09:44 | HOSPPROG ---
Hospitalist Progress Note Assessment/Plan: #Intractable pain: pain improved today; 10/28 -IR evaluated for possible celiac/SMA block, but not great candidate now based on location or symptoms, side effects -evaluated by Dr. Fournier with BO -3rd dose of MS Contin this morning (did not keep last dose down) -Reassess in morning for uptitration; if needing > 4 breakthrough, go to 45mg BID -feel difficulty coping could make DC more complicated #Pancreatic carcinoma: oncology to further stage as outpatient #Nausea/vomiting: likely opioid-related. AXR reassuring, constipation, no obstruction -Ativan, Zofran. Did not tolerate Phenergan. Zydis if needed #Left-sided hydronephrosis: s/p nephrostomy tube #Urinary retention: casanova in place #DVT ppx: declines Lovenox #Disp: inpatient admission for pain control. Would aim for DC tomorrow with BO outpatient follow-up Subjective: nausea last night; did not keep MS contin down. Agitated during interview this morning Objective: Vital Signs Temp Pulse Resp BP Pulse Ox 37 C 86 16 114/78 94 04/09/18 08:44 04/09/18 08:44 04/09/18 08:44 04/09/18 08:44 04/09/18 08:44 Laboratory Results 04/06/18 15:40 04/06/18 15:40 04/08/18 04/09/18 04/10/18 05:59 05:59 05:59 Intake Total 300 500 Output Total 1300 1150 Balance -1000 -650 - Time Spent With Patient Time Spent with Patient: greater than 35 minutes Time Spent with Patient: Greater than 35 minutes spent on this patients care, greater than 50% of time spent counseling, educating, and coordinating care regarding the above mentioned plan. - Physical Exam Constitutional: no apparent distress, other (thin) Eyes: PERRL Ears, Nose, Mouth, Throat: moist mucous membranes Cardiovascular: regular rate and rhythym Gastrointestinal: normoactive bowel sounds, soft, non-tender abdomen, No distension Genitourinary: casanova in urethra, other (left nephrostomy tube draining ) Skin: warm Musculoskeletal: full muscle strength, no joint effusions Neurologic: CN II-XII Intact Psychiatric: interacting appropriately ICD10 Worksheet Patient Problems: Problems Problem Status Onset Hydronephrosis Acute Left flank pain Acute Pancreatic abnormality Acute
[2018-04-09] MEDS: morphINE SR 30 MG TAB PO SCH ×2 (10:30→20:02)
[2018-04-09] MEDS: SENNOSIDES/DOCUSATE SODIUM TAB PO SCH ×2 (11:10→22:13)
[2018-04-09] MEDS: HYDROmorphONE/DILAUDID 2 MG TAB PO PRN ×2 (12:28→22:13)
--- NOTE | 2018-04-09 17:01 | ASMTCMCOM ---
CM Note CM Note Notes: An email was sent to Financial Counsel[facility] at pt's request. He would like to ask them some questions. Date Signed: 04/09/2018 05:00 PM Electronically Signed By:SAMMIE Montelongo
[2018-04-09] MEDS: ONDANSETRON DISINTEGRATING 4 MG TAB PO PRN (17:41)
--- NOTE | 2018-04-09 17:47 | SOAPPROG ---
JANEY Progress Note Assessment/Plan: Assessment/Plan: Patient is a 58 year old male with adenocarcinoma of the pancreas, presumed metastatic, admitted for pain control. # Cancer related pain Difficult to manage from the standpoint of keeping him pain free and lucid at the same time. We are moving closer to controlling his pain, appreciated palliative care input. Not felt to be good candidate for celiac/SMA nerve block. #Pancreatic adenocarcinoma Has RP LN which is noncontiguous concerning for metastatic disease. Need to control pain and nausea before move forward with staging PET as an outpatient. Christopher Watson 04/09/18 17:44 Subjective: Patient again had paroxysm of pain and nausea yesterday which was difficult to manage. He has been on different medications at different doses and he is struggling to keep track of them all but he does think we are headed in the right direction. No fevers chills or sweats. Objective: Vital Signs Temp Pulse Resp BP Pulse Ox 36.6 C 73 16 124/83 H 93 04/09/18 15:23 04/09/18 15:23 04/09/18 15:23 04/09/18 15:23 04/09/18 15:23 Laboratory Results 04/06/18 15:40 04/06/18 15:40 04/08/18 04/09/18 04/10/18 05:59 05:59 05:59 Intake Total 300 500 Output Total 1300 1150 800 Balance -1000 -650 -800 Physical Examination: Vital signs reviewed General: No acute distress appearing nontoxic-appearing male appears younger than stated age HEENT: Pupils equal round reactive to light no scleral icterus or conjunctival pallor is appreciated oral mucosa is moist without any evidence of oral pharyngeal lesions Cardiovascular: Regular rate and rhythm without rubs chills gallops or murmurs Chest: Clear to auscultation and percussion bilateral posterior lungs Abdomen: Distended, diffusely tender to palpation without rebound or guarding Extremities: Warm and well perfused 2+ dorsalis pedis and radial pulses bilaterally no lower extremity edema Neuro: Cranial nerves II through XII are grossly intact, nods off occasionally ICD10 Worksheet Patient Problems: Problems Problem Status Onset Hydronephrosis Acute Left flank pain Acute Pancreatic abnormality Acute
[2018-04-09] MEDS: HYDROmorphONE/DILAUDID 4 MG TAB PO SCH (18:01)
[2018-04-09] MEDS: GABAPENTIN 300 MG CAP PO SCH (20:02)
[2018-04-10] MEDS: HYDROmorphONE/DILAUDID 2 MG TAB PO PRN ×5 (02:29→20:50)
[2018-04-10] MEDS: SENNOSIDES/DOCUSATE SODIUM TAB PO SCH ×2 (06:18→20:50)
[2018-04-10] MEDS: ONDANSETRON DISINTEGRATING 4 MG TAB PO PRN ×2 (07:44→20:49)
[2018-04-10] MEDS: HYDROmorphONE/DILAUDID 4 MG TAB PO SCH (08:27)
[2018-04-10] MEDS: morphINE SR 30 MG TAB PO SCH ×2 (08:27→20:50)
--- NOTE | 2018-04-10 10:09 | HOSPPROG ---
Hospitalist Progress Note Assessment/Plan: #Intractable pain: pain improved today; 08/30 * IR evaluated for possible celiac/SMA block, but not great candidate now based on location or symptoms, side effects * evaluated by Dr. Fournier with BO * Pain seems to be pretty well controlled on current dose of MS Contin. Will continue # new diagnosis of Pancreatic carcinoma: oncology to further stage as outpatient #Nausea/vomiting: likely opioid-related. AXR reassuring, constipation, no obstruction * Better with premedicating before narcotics #Left-sided hydronephrosis: s/p nephrostomy tube #Urinary retention: * Due to narcotics which he has a history of similar problems * Start Flomax twice daily today * Try taking out Joseph tomorrow with voiding trial #DVT ppx: declines Lovenox Subjective: Pain is better. He wants us to see if he can get the Joseph out before discharge Objective: Vital Signs Temp Pulse Resp BP Pulse Ox 37.2 C 80 12 126/80 H 93 04/10/18 07:53 04/10/18 07:53 04/10/18 07:53 04/10/18 07:53 04/10/18 07:53 Laboratory Results 04/06/18 15:40 04/06/18 15:40 04/09/18 04/10/18 04/11/18 05:59 05:59 05:59 Intake Total 500 350 Output Total 1150 1500 Balance -650 -1500 350 - Physical Exam Constitutional: no apparent distress, appears nourished Eyes: anicteric sclera, EOMI Respiratory: no respiratory distress Skin: warm Neurologic: AAOx3 Psychiatric: interacting appropriately, not anxious, not encephalopathic, thought process linear ICD10 Worksheet Patient Problems: Problems Problem Status Onset Hydronephrosis Acute Left flank pain Acute Pancreatic abnormality Acute
[2018-04-10] MEDS: TAMSULOSIN HCL 0.4 MG CAP PO SCH ×2 (11:27→18:10)
[2018-04-10] MEDS: BACLOFEN 20 MG TAB PO PRN (18:10)
[2018-04-10] MEDS: LORazepam 0.5 MG TAB PO PRN (19:19)
--- NOTE | 2018-04-10 20:04 | SOAPPROG ---
JANEY Progress Note Assessment/Plan: Assessment/Plan: Patient is a 58 year old male with adenocarcinoma of the pancreas, presumed metastatic, admitted for pain control. # Cancer related pain Difficult to manage from the standpoint of keeping him pain free and lucid at the same time. Seems today we have found a good place for him pain vasques. Would continue current plan. #Pancreatic adenocarcinoma Has RP LN which is noncontiguous concerning for metastatic disease. Need symptoms control before move forward with staging PET as an outpatient. -Will arrange outpatient follow-up with me #Urinary retention Likely due to narcotics and constipation. Has left nephrostomy -tamsulosin, cathartics Christopher Watson 04/10/18 20:06 Subjective: Patient reports having manageable pain for first time this admission. He would like to focus on his urinary retention and constipation currently. No other complaints. Objective: Vital Signs Temp Pulse Resp BP Pulse Ox 37.7 C 91 14 132/44 H 94 04/10/18 19:41 04/10/18 19:41 04/10/18 19:41 04/10/18 19:41 04/10/18 19:41 Laboratory Results 04/06/18 15:40 04/06/18 15:40 04/09/18 04/10/18 04/11/18 05:59 05:59 05:59 Intake Total 500 900 Output Total 1150 1500 350 Balance -650 -1500 550 Physical Examination: Vital signs reviewed General: No acute distress appearing nontoxic-appearing male appears younger than stated age HEENT: Pupils equal round reactive to light no scleral icterus or conjunctival pallor is appreciated oral mucosa is moist without any evidence of oral pharyngeal lesions Cardiovascular: Regular rate and rhythm without rubs chills gallops or murmurs Chest: Clear to auscultation and percussion bilateral posterior lungs Abdomen: Distended, diffusely tender to palpation without rebound or guarding Neuro: Cranial nerves II through XII are grossly intact, ICD10 Worksheet Patient Problems: Problems Problem Status Onset Hydronephrosis Acute Left flank pain Acute Pancreatic abnormality Acute
[2018-04-10] MEDS: GABAPENTIN 300 MG CAP PO SCH (20:50)
[2018-04-10] MEDS: OLANZapine DISINTEGR 5 MG TAB PO PRN (22:05)
[2018-04-11] MEDS: HYDROmorphONE/DILAUDID 2 MG TAB PO PRN ×5 (00:48→21:46)
[2018-04-11] MEDS: LORazepam 0.5 MG TAB PO PRN ×2 (01:20→14:35)
[2018-04-11] MEDS: BACLOFEN 20 MG TAB PO PRN (04:41)
[2018-04-11] MEDS: traZODone 50 MG TAB PO PRN (05:37)
[2018-04-11] MEDS: HYDROmorphONE/DILAUDID 4 MG TAB PO SCH (09:12)
[2018-04-11] MEDS: morphINE SR 30 MG TAB PO SCH (09:13)
[2018-04-11] MEDS: TAMSULOSIN HCL 0.4 MG CAP PO SCH ×2 (09:14→17:33)
[2018-04-11] MEDS: SENNOSIDES/DOCUSATE SODIUM TAB PO SCH ×2 (09:14→21:44)
[2018-04-11] MEDS: POLYETHYLENE GLYCOL 3350 17 GM PKT PO PRN (09:15)
[2018-04-11] MEDS ORDERED: HYDROmorphONE/DILAUDID 1 MG/ML INJ IVP PRN (09:32)
--- NOTE | 2018-04-11 09:32 | HOSPPROG ---
Hospitalist Progress Note Assessment/Plan: # Pancreatic carcinoma: recently diagnosed, oncology to further stage with outpt PET. However, pt failed outpt management and returned within 24 hrs of discharge due to poor pain control and difficulty coping. Onc notes high likelihood of metastatic disease with suspicious retroperitoneal lymph node. #Intractable pain: He had a difficult night and required IV dilaudid, ativan and baclofen. He is now oversedated again, not safe for d/c home * IR evaluated for possible celiac/SMA block, but not great candidate now based on location or symptoms, risk of side effects * evaluated by Dr. Fournier with [facility], who will follow as outpt * He is still receiving IV dilaudid q2-4h, along with ativan and is frequently oversedated * Will increase MS Contin to 45 mg BID in hopes of minimizing IV dilaudid as he is quite dependent on the IV dilaudid pushes and his desire/need for this is what brought him back to the hospital after last attempt at discharge. Would ensure his symptoms are controlled off IV dilaudid prior to d/c. * Decrease IV dilaudid dose and frequency (had 0.5 mg IV q2h ordered, decreased to 0.2-0.4 mg IV q4h), cont po dilaudid prn #Nausea/vomiting: likely opioid-related. AXR reassuring, constipation, no obstruction * Better with premedicating before narcotics #Constipation: cont bowel regimen Try mag citrate today #Left-sided hydronephrosis: s/p nephrostomy tube, also has indwelling casanova, see below #Urinary retention: Likely 2/2 opiates and bzds. He failed removal of casanova last week with ongoing retention and casanova was replaced. * Flomax was started yesterday * Likely d/c with casanova and outpt urology f/u #DVT ppx: He has apparently declined Lovenox #Dispo: cont inpt, d/c goals are pain control and symptom management off IV opiates, outpt palliative care is planned. May need to consider hospice if unable to achieve symptom control. Subjective: Pt reports he had a very rough night. He is quite sedated this am, frequently drifting off while talking to me. He says he had sudden increase in pain overnight and required more frequent IV dilaudid. Also c/o constipation, no BM x4 days. Objective: Vital Signs Temp Pulse Resp BP Pulse Ox 37.7 C 90 18 143/83 H 97 04/10/18 19:41 04/11/18 04:49 04/11/18 04:49 04/11/18 04:49 04/11/18 04:49 Laboratory Results 04/06/18 15:40 04/06/18 15:40 04/10/18 04/11/18 04/12/18 05:59 05:59 05:59 Intake Total 1550 Output Total 1500 1100 Balance -1500 450 - Physical Exam Constitutional: no apparent distress Eyes: PERRL Ears, Nose, Mouth, Throat: moist mucous membranes Cardiovascular: regular rate and rhythym Respiratory: no respiratory distress, clear to auscultation Gastrointestinal: normoactive bowel sounds, soft, non-tender abdomen Skin: warm Musculoskeletal: full muscle strength Psychiatric: encephalopathic ICD10 Worksheet Patient Problems: Problems Problem Status Onset Hydronephrosis Acute Left flank pain Acute Pancreatic abnormality Acute
[2018-04-11] MEDS ORDERED: morphINE SR 30 MG TAB PO SCH (09:34)
[2018-04-11] MEDS ORDERED: MAGNESIUM CITRATE 300 ML BOTTLE PO ONE (09:47)
[2018-04-11] MEDS: LACTULOSE 20 GM/30 ML UDCUP PO PRN (10:39)
[2018-04-11] MEDS ORDERED: morphINE SR 15 MG TAB PO SCH (11:15)
--- NOTE | 2018-04-11 12:43 | SOAPPROG ---
JANEY Progress Note Assessment/Plan: Assessment: Patient is a 58 year old male with adenocarcinoma of the pancreas, presumed metastatic, admitted for pain control. # Cancer related pain His paint is under better control today. He is sitting up, eating, visiting with friends and family. #Pancreatic adenocarcinoma Has RP LN which is noncontiguous concerning for metastatic disease. Need symptoms control before move forward with staging PET as an outpatient. I placed an order for an outpatient PET/CT. He will F/U with Dr. Watson post discharge. #Urinary retention Likely due to narcotics and constipation. Has left nephrostomy -tamsulosin, cathartics We talked at length about metastatic pancreatic CA, 2% 1 year survival without treatment, 30% 1 year survival with palliative chemo (FOLFIRINOX), possibility of XRT for pain control, need for PET/CT to develop a 'roadmap' of sites of disease, possible participation in clinical trial if he is eligible. 30 min floor time/coordination time Plan: - pain control - PET/CT - Further discussion of goals of care/palliative options/etc once more data is available. 04/11/18 12:44 Subjective: Pain is better this afternoon. Eating. Interacting with friends and family Objective: Vital Signs Temp Pulse Resp BP Pulse Ox 36.9 C 86 16 152/90 H 95 04/11/18 09:47 04/11/18 09:47 04/11/18 09:47 04/11/18 09:47 04/11/18 09:47 Laboratory Results 04/06/18 15:40 04/06/18 15:40 04/09/18 04/10/18 04/11/18 23:59 23:59 23:59 Intake Total 900 650 Output Total 800 1050 750 Balance -800 -150 -100 Physical Exam - Physical Exam General Appearance: alert, mild distress Neuro/Psych: normal mood/affect, oriented x 3 ICD10 Worksheet Patient Problems: Problems Problem Status Onset Hydronephrosis Acute Left flank pain Acute Pancreatic abnormality Acute
[2018-04-11] MEDS: morphINE SR 15 MG TAB PO SCH (21:43)
[2018-04-11] MEDS: GABAPENTIN 300 MG CAP PO SCH (21:44)
[2018-04-12] MEDS: LORazepam 0.5 MG TAB PO PRN (01:40)
[2018-04-12] MEDS: HYDROmorphONE/DILAUDID 2 MG TAB PO PRN ×7 (01:46→23:39)
[2018-04-12] MEDS: ACETAMINOPHEN 325 MG TAB PO PRN (03:22)
[2018-04-12] MEDS: BACLOFEN 20 MG TAB PO PRN (03:22)
[2018-04-12] MEDS: traZODone 50 MG TAB PO PRN ×2 (03:28→23:40)
[2018-04-12] MEDS: SENNOSIDES/DOCUSATE SODIUM TAB PO SCH ×2 (09:07→20:31)
[2018-04-12] MEDS: morphINE SR 15 MG TAB PO SCH ×3 (09:07→20:30)
[2018-04-12] MEDS: POLYETHYLENE GLYCOL 3350 17 GM PKT PO PRN (09:08)
[2018-04-12] MEDS: TAMSULOSIN HCL 0.4 MG CAP PO SCH ×2 (09:08→20:32)
[2018-04-12] MEDS: ONDANSETRON DISINTEGRATING 4 MG TAB PO PRN ×2 (09:18→14:28)
[2018-04-12] MEDS ORDERED: PEG 3350/NA SULF,BICARB,CL/KCL (GAVILYTE-G) 4000 ML BTL PO ONE (13:18)
[2018-04-12] MEDS ORDERED: LORazepam 0.5 MG TAB PO PRN (13:19)
[2018-04-12] MEDS ORDERED: HYDROmorphone HCL 0.5 MG/0.5 ML SYR IVP PRN (13:19)
--- NOTE | 2018-04-12 13:32 | HOSPPROG ---
Hospitalist Progress Note Assessment/Plan: 58 yo F with recently diagnosed pancreatic carcinoma admitted with intractable pain, n/v, constipation, urinary retention # Pancreatic carcinoma: recently diagnosed, oncology to further stage with outpt PET. However, pt failed outpt management and returned within 24 hrs of discharge due to poor pain control and difficulty coping. Onc notes high likelihood of metastatic disease with suspicious retroperitoneal lymph node. #Intractable pain: improved pain control today but per patient pain returns prior to being due for more pain medications -at this time will continue current MS contin at 45 and prn dilaudid increased to q3 -will determine 24 hour opiate requirement and adjust MS contin as needed # nausea/vomiting: presumably side effect to medications and related to continued constipation, patient concerned that zofran may be making him "loopy" -will try zofran again, continue prn ativan at decreased intervals, prn phenergan #Constipation: apparently mag citrate gave him hiccups that lasted x 4 days and required thorazine--will try golytely #Left-sided hydronephrosis: s/p nephrostomy tube, #Urinary retention: Likely 2/2 opiates and bzds. He failed removal of casanova last week with ongoing retention and casanova was replaced, casanova removed again yesterday and now with recurrent retention. Discussed straight cath as patient concerned about ability to have sex after discharge. Will need f/u with urology after dc. Straight cath q 6 #DVT ppx: ambulation, patient declines lmwh IP status, patient will likely dc in coming 1-2 days Subjective: no significant overnight events, patient notes that pain is still suboptimally controlled Objective: Vital Signs Temp Pulse Resp BP Pulse Ox 36.7 C 88 16 136/89 H 93 04/12/18 08:00 04/12/18 08:00 04/12/18 08:00 04/12/18 08:00 04/12/18 08:00 Laboratory Results 04/06/18 15:40 04/06/18 15:40 04/11/18 04/12/18 04/13/18 05:59 05:59 05:59 Intake Total 1550 940 Output Total 1100 500 Balance 450 440 chronically ill appearing thin anicteric op clear rrr no mrg cta b soft nt nd perc neph tube draining dark urine no cce warm dry well perfused - Time Spent With Patient Time Spent with Patient: greater than 35 minutes Time Spent with Patient: Greater than 35 minutes spent on this patients care, greater than 50% of time spent counseling, educating, and coordinating care regarding the above mentioned plan. ICD10 Worksheet Patient Problems: Problems Problem Status Onset Hydronephrosis Acute Left flank pain Acute Pancreatic abnormality Acute
--- NOTE | 2018-04-12 14:38 | ASMTCMCOM ---
CM Note CM Note Notes: 04/12/2018 Case Management Note Discussed with RN. Pt continues to struggle with pain management and adjusting emotionally to medical diagnosis. Adjustments made to medication regime with plan for d/c early next week. Rita Robertson consult ordered on Friday to help pt discuss his concerns and difficulty adjusting to diagnosis and provide resources for outpatient emotional support. Pt has been accepted by both [facility] and [facility] hospice. Case Management d/c poc: Home with home care and outpatient [facility] support. Case Management to follow. 04/08/2018 CM Note Patient plan of care reviewed in interdisciplinary rounds. 58 year old male with new diagnosis of pancreatic cancer, hydronephrosis (s/p stent) and urinary retention (casanova) dcd on the and readmitted the with intractable pain issues. Seen by Palliative care physician Dr. Fournier for [facility] and is being treated with recommended medications regiment. Last night as the previous night he had outburst stemming from reported "pain" which per the patient's account includes the pain of his situation. Goal is to achieve acceptable level of pain so that he may discharge and get his PET scan and explore treatment options with his oncologist. CM to follow for needs. Likely to benefit from [facility] RN regarding his multiple concerns. Otherwise independent physically with no needs for other services. CM to follow. Plan: Likely home with [facility] when medically cleared for discharge. Date Signed: 04/12/2018 02:37 PM Electronically Signed By:Lyla Martinez RN
[2018-04-12] MEDS: GABAPENTIN 300 MG CAP PO SCH (20:31)
[2018-04-13] MEDS: BACLOFEN 20 MG TAB PO PRN (01:46)
[2018-04-13] MEDS: HYDROmorphONE/DILAUDID 2 MG TAB PO PRN ×5 (02:29→14:51)
[2018-04-13] MEDS: TAMSULOSIN HCL 0.4 MG CAP PO SCH (09:04)
[2018-04-13] MEDS: SENNOSIDES/DOCUSATE SODIUM TAB PO SCH (09:04)
[2018-04-13] MEDS: morphINE SR 15 MG TAB PO SCH (09:04)
[2018-04-13 09:11] VITALS: BP 131/70
[2018-04-13] MEDS ORDERED: morphINE SR 15 MG TAB PO ONE (10:14)
[2018-04-13] MEDS ORDERED: morphINE SR 15 MG TAB PO SCH (10:14)
--- NOTE | 2018-04-13 10:21 | PDIAF ---
- Diagnosis Code Status: Full Code - Medication Management Discharge Medications: Medications to Continue on Transfer Acetaminophen [Tylenol 325mg (*)] 650 mg PO Q4HRS PRN tab 04/13/18 [Last Taken Unknown] Baclofen [Baclofen 20 mg (*)] 20 mg PO TID PRN #90 tab 04/13/18 [Last Taken Unknown] Gabapentin [Neurontin 300 MG (*)] 300 mg PO HS #30 cap 04/13/18 [Last Taken Unknown] HYDROmorphone HCL [Dilaudid 2 mg (*)] 2 - 4 mg PO Q3H PRN #120 tab 04/13/18 [ Last Taken Unknown] LORazepam [Ativan (*)] 0.5 - 1 mg PO Q4H PRN #90 tab 04/13/18 [Last Taken Unknown] OLANZapine DISINTEGR [ZyPREXA ZYDIS (*)] 5 mg PO BID PRN #60 tab 04/13/18 [Last Taken Unknown] Ondansetron Odt [Zofran Odt 4 mg (*)] 4 mg PO Q4HRS PRN #120 tab 04/13/18 [Last Taken Unknown] Polyethylene Glycol 3350 [Miralax 17 gm (*)] 17 gm PO DAILY PRN pkt 04/13/18 [ Last Taken Unknown] Sennosides/Docusate Sodium [Senokot-S] 1 - 2 tab PO BID tab 04/13/18 [Last Taken Unknown] Sildenafil Citrate [Viagra 25 MG (*)] 50 mg PO DAILY PRN #30 tab 04/13/18 [Last Taken Unknown] Tamsulosin HCl [Flomax 0.4 MG (*)] 0.4 mg PO BIDPC #60 cap 04/13/18 [Last Taken Unknown] morphINE SR [MS Contin/Oramorph 60 mg (*)] 60 mg PO BID #60 tab 04/13/18 [Last Taken Unknown] traZODone [traZODONE 50MG (*)] 50 mg PO HS PRN #30 tab 04/13/18 [Last Taken Unknown] Discharge Medications: Refer to the Discharge Home Medication list for PRN reason. - Orders Services needed: Home Care, Registered Nurse, Certified Statistics Manager Home Care Face to Face: I certify that this patient was under my care and that I had the required [id number] encounter meeting the encounter requirements on the discharge day. My findings support the fact that the patient is homebound as defined in Home Care Face to Face Continued: CMS Chapter 7 Medicare Benefits Manual 30.1.1 , The condition of the patient is such that there exists a normal inability to leave home and consequently, leaving home would require a considerable and taxing effort. Diet Recommendation: no restrictions on diet Additional Instructions: Follow up with Sara Fournier through palliative care - Follow Up Care Current Providers and Referrals: JAYESH FRITZ [Primary Care Provider] -
--- NOTE | 2018-04-13 10:23 | PDDCSUM ---
Discharge Summary Discharge Summary: Dates of service 04/06-04/12/18 Consultations: oncology, IR, palliative care Procedures: none Hospital course by problem: 58 yo F with recently diagnosed pancreatic carcinoma admitted with intractable pain, n/v, constipation, urinary retention # Pancreatic carcinoma: recently diagnosed, oncology to further stage with outpt PET. However, pt failed outpt management and returned within 24 hrs of discharge due to poor pain control and difficulty coping. Onc notes high likelihood of metastatic disease with suspicious retroperitoneal lymph node. Will f/u with oncology and palliative care as planned #Intractable pain: improved pain control today but pain continues to recur prior to obtaining pain medications --increased ms contin to 60 bid -continue prn dilaudid for breakthrough pain # nausea/vomiting: presumably side effect to medications and related to continued constipation,continue prn zofran and ativan, improved #Constipation: continue bowel protocol, discussed that this will be an ongoing side effect from opiates and that he will need to continue bowel protocol #Left-sided hydronephrosis: s/p nephrostomy tube #Urinary retention: Likely 2/2 opiates and bzds. Straight cath q 6 # erectile dysfunction: patient feels very strongly about attempting sex again prior to dying, given rx for viagra for after discharge DC home with home health and home palliative care > 35 min spent in dc more than half in face to face counseling of patient and his friends regarding f/u care plan
== END 2018-04-13 16:28 | disposition home health service (06) | DRG 948 ==
LOC: F1N 05:10 → OBSVTOIN 14:45
PROVIDERS: ADMIT Family Medicine; ATTEND Family Medicine
DX: G89.3 Neoplasm related pain (acute) (chronic) (principal); C25.2 Malignant neoplasm of tail of pancreas; N13.1 Hydronephrosis with ureteral stricture, not elsewhere classified; R33.0 Drug induced retention of urine; R06.6 Hiccough; K59.03 Drug induced constipation; G47.00 Insomnia, unspecified; T50.7X5A Adverse effect of analeptics and opioid receptor antagonists, initial encounter; T42.4X5A Adverse effect of benzodiazepines, initial encounter; N52.9 Male erectile dysfunction, unspecified
CPT/HCPCS: J1170; J2405; J2550

== ENCOUNTER 2018-04-26 01:55 | Emergency (ER) | payer OTHER ==
[2018-04-26] MEDS ORDERED: NS 1,000 ML IV ONE (02:00)
[2018-04-26 02:41] LABS: PLATELET COUNT 218 10^3/uL (150-400)
--- NOTE | 2018-04-26 04:10 | EDPHY ---
H & P Stated Complaint: ONGOING L FLANK PAAIN Time Seen by Provider: 04/26/18 02:54 HPI/ROS: HPI The patient presents with worsening left flank pain for the last 24 hr. The patient has a diagnosis of likely metastatic pancreatic cancer which was made recently. He has left-sided hydronephrosis and has a nephrostomy tube in place. He noticed that the urine changed appearance and became more cloudy from this tube several days ago. A urine culture was performed and did demonstrate E coli and Pseudomonas. Today, he received a prescription for levofloxacin, however he has not been able to fill this. He has not had any fever or worsening nausea. Over the last about 2 weeks his pain has become somewhat worse. Last night his pain was more severe and he called the on-call palliative care doctor and his MS Contin was increased. Tonight, despite increasing the dose, he continues to have pain which is constant, dull, moderate in severity. He has not been able to sleep much.. REVIEW OF SYSTEMS 10 systems were reviewed and negative with the exception of the elements mentioned in the history of present illness. PMHx: Pancreatic cancer with concern for metastatic disease, left-sided hydronephrosis status post nephrostomy tube Soc Hx: Here with his partner and caregiver, has home health in place PHYSICAL General Appearance: Alert, no distress Eyes: Pupils equal and round no pallor or injection ENT, Mouth: Mucous membranes moist Respiratory: There are no retractions, lungs are clear to auscultation Cardiovascular: Regular rate and rhythm Gastrointestinal: Abdomen is soft and non-tender, no masses, bowel sounds normal : Left-sided nephrostomy tube in place draining yellow urine Neurological: A&O, moves all extremities Skin: Warm and dry, no rashes Musculoskeletal: Neck is supple non tender Extremities: symmetrical, full range of motion Psychiatric: Patient is oriented X 3, there is no agitation Source: Patient Exam Limitations: No limitations - Personal History Current Tetanus Diphtheria and Acellular Pertussis (TDAP): Yes Tetanus Vaccine Date: 2008 - Medical/Surgical History Hx Asthma: No Hx Chronic Respiratory Disease: No Hx Diabetes: No Hx Cardiac Disease: No Hx Renal Disease: No Hx Cirrhosis: No Hx Alcoholism: No Hx HIV/AIDS: No Hx Splenectomy or Spleen Trauma: No Other PMH: Pancreatic cancer, hydronephrosis - Social History Smoking Status: Never smoked Constitutional: Initial Vital Signs Temperature (C) 36.4 C 04/26/18 02:00 Heart Rate 81 04/26/18 02:00 Respiratory Rate 16 04/26/18 02:00 Blood Pressure 106/67 04/26/18 02:00 O2 Sat (%) 91 L 04/26/18 02:00 O2 Delivery Mode Room Air O2 (L/minute) 2 Allergies/Adverse Reactions: No Known Allergies Allergy (Verified 04/27/18 00:29) Home Medications: Medication Instructions Recorded Acetaminophen [Tylenol 325mg (*)] 650 mg PO Q4HRS PRN tab 04/13/18 Gabapentin [Neurontin 300 MG (*)] 300 mg PO HS #30 cap 04/13/18 HYDROmorphone HCL [Dilaudid 2 mg 2 - 4 mg PO Q3H PRN #120 tab 04/13/18 (*)] LORazepam [Ativan (*)] 0.5 - 1 mg PO Q4H PRN #90 tab 04/13/18 Ondansetron Odt [Zofran Odt 4 mg 4 mg PO Q4HRS PRN #120 tab 04/13/18 (*)] Peg 3350/Na Sulf,Bicarb,Cl/KCl 4,000 ml PO ONCE #1 btl 04/13/18 [Golytely (RX)] Sennosides/Docusate Sodium 1 - 2 tab PO BID tab 04/13/18 [Senokot-S] Tamsulosin HCl [Flomax 0.4 MG (*)] 0.4 mg PO BIDPC #60 cap 04/13/18 morphINE SR [MS Contin/Oramorph 60 60 mg PO BID #60 tab 04/13/18 mg (*)] traZODone [traZODONE 50MG (*)] 50 mg PO HS PRN #30 tab 04/13/18 Relistor 04/26/18 Medical Decision Making Differential Diagnosis: 58-year-old man with recent diagnosis of presumed metastatic pancreatic cancer with left-sided nephrostomy tube in place for hydronephrosis and diagnosis of urinary tract infection yesterday, though no antibiotics yet, presents with left -sided flank pain without fever or vomiting. On exam, patient appears uncomfortable though does not have any CVA tenderness. Nephrostomy tube is draining properly. His pain could be related to his malignancy verses pyelonephritis. Less likely I suspect a kidney stone. I will give him a dose of ceftriaxone, and a L of IV fluids to see how he responds. I have offered him pain medication at this time , however he declines. The patient eventually felt better and wanted to be discharged from the emergency department. He does not want to be admitted to the hospital, though this was offered. His labs are unremarkable. He will be discharged. - Data Points Laboratory Results: Laboratory Results 04/26/18 02:10 04/26/18 02:10 Medications Given: Discontinued Medications Ceftriaxone Sodium/Dextrose (Rocephin 1 Gm (Premix)) 50 mls @ 100 mls/hr IV EDNOW ONE PRN Reason: Protocol Stop: 04/26/18 03:39 Last Admin: 04/26/18 03:17 Dose: 50 mls Sodium Chloride (Ns) 1,000 mls @ 0 mls/hr IV ONCE ONE; Wide Open PRN Reason: Protocol Stop: 04/26/18 02:01 Last Admin: 04/26/18 02:00 Dose: 1,000 mls Departure - Departure Disposition: Home, Routine, Self-Care Clinical Impression: Hydronephrosis, Left flank pain, Pancreatic mass Condition: Fair Instructions: Kidney Infection (ED) Additional Instructions: Please start taking the antibiotic today. Return to the ER if your pain is any worse or follow up with your usual doctor. Referrals: JAYESH FRITZ [Primary Care Provider] - As per Instructions
[2018-04-26 05:59] VITALS: BP 123/74
== END 2018-04-26 05:58 | disposition home or self-care (01) ==
DX: N13.30 Unspecified hydronephrosis (principal); K86.9 Disease of pancreas, unspecified; E86.9 Volume depletion, unspecified; Z93.6 Other artificial openings of urinary tract status
CPT/HCPCS: 96365; J0696

== ENCOUNTER 2018-04-27 00:25 | Emergency (ER) | payer OTHER ==
[2018-04-27] MEDS ORDERED: NS 1,000 ML IV ONE (00:50)
[2018-04-27] MEDS ORDERED: HYDROmorphONE/DILAUDID 2 MG/ML INJ ONE (00:52)
[2018-04-27] MEDS ORDERED: HYDROmorphONE/DILAUDID 2 MG/ML INJ IVP ONE (00:56)
[2018-04-27] MEDS ORDERED: KETAMINE 200 MG/20 ML VIAL IVP ONE (01:10)
--- NOTE | 2018-04-27 01:18 | EDPHY ---
H & P Stated Complaint: LFP UNABLE TO CONTROL PAIN. PANCREATITIS CA PT Time Seen by Provider: 04/27/18 00:38 HPI/ROS: HPI The patient presents with continued left flank pain which became worse again tonight. I saw this patient last night for similar complaint. He improved after receiving IV fluids and a dose of ceftriaxone. He went home and was feeling well during the day, however the pain returned at about 8:00 p.m.. He describes aching, constant, dull pain which does not radiate. He was able to take a dose of Levaquin today and family members report that the urine has become more clear. He has nausea and has not had vomiting. He has been drinking some water.. REVIEW OF SYSTEMS 10 systems were reviewed and negative with the exception of the elements mentioned in the history of present illness. PMHx: Pancreatic cancer, left-sided hydronephrosis status post nephrostomy tube placement, followed by Dr. Valdez of [facility] Hx: Here with caregivers PHYSICAL General Appearance: Alert, uncomfortable appearing Eyes: Pupils equal and round no pallor or injection ENT, Mouth: Mucous membranes dry Respiratory: There are no retractions, lungs are clear to auscultation Cardiovascular: Regular rate and rhythm Gastrointestinal: Abdomen is soft and non-tender, no masses, bowel sounds normal Neurological: A&O, moves all extremities Skin: Warm and dry, no rashes Musculoskeletal: Neck is supple non tender Extremities: symmetrical, full range of motion Psychiatric: Patient is oriented X 3, there is no agitation Source: Patient, Family Exam Limitations: No limitations - Personal History Current Tetanus/Diphtheria Vaccine: Yes Current Tetanus Diphtheria and Acellular Pertussis (TDAP): Yes Tetanus Vaccine Date: 2008 - Medical/Surgical History Hx Asthma: No Hx Chronic Respiratory Disease: No Hx Diabetes: No Hx Cardiac Disease: No Hx Renal Disease: No Hx Cirrhosis: No Hx Alcoholism: No Hx HIV/AIDS: No Hx Splenectomy or Spleen Trauma: No Other PMH: Pancreatic cancer, hydronephrosis - Social History Smoking Status: Never smoked Constitutional: Initial Vital Signs Temperature (C) 36.5 C 04/27/18 00:27 Heart Rate 67 04/27/18 00:27 Respiratory Rate 18 04/27/18 00:27 Blood Pressure 124/66 H 04/27/18 00:27 O2 Sat (%) 97 04/27/18 00:27 O2 Delivery Mode Room Air O2 (L/minute) 2 Allergies/Adverse Reactions: No Known Allergies Allergy (Verified 04/27/18 00:29) Home Medications: Medication Instructions Recorded Acetaminophen [Tylenol 325mg (*)] 650 mg PO Q4HRS PRN tab 04/13/18 Gabapentin [Neurontin 300 MG (*)] 300 mg PO HS #30 cap 04/13/18 HYDROmorphone HCL [Dilaudid 2 mg 2 - 4 mg PO Q3H PRN #120 tab 04/13/18 (*)] LORazepam [Ativan (*)] 0.5 - 1 mg PO Q4H PRN #90 tab 04/13/18 Ondansetron Odt [Zofran Odt 4 mg 4 mg PO Q4HRS PRN #120 tab 04/13/18 (*)] Peg 3350/Na Sulf,Bicarb,Cl/KCl 4,000 ml PO ONCE #1 btl 04/13/18 [Golytely (RX)] Sennosides/Docusate Sodium 1 - 2 tab PO BID tab 04/13/18 [Senokot-S] Tamsulosin HCl [Flomax 0.4 MG (*)] 0.4 mg PO BIDPC #60 cap 04/13/18 morphINE SR [MS Contin/Oramorph 60 60 mg PO BID #60 tab 04/13/18 mg (*)] traZODone [traZODONE 50MG (*)] 50 mg PO HS PRN #30 tab 04/13/18 Relistor 04/26/18 Medical Decision Making - Diagnostics Imaging Results: CT abdomen pelvis with IV contrast demonstrates pancreatic mass increasing in size potentially involving the celiac plexus, new small ascites, constipation, discussed with Dr. Garcia of Radiology. Imaging: Discussed imaging studies w/ bingo caller Radiologist, I viewed and interpreted images myself Differential Diagnosis: This is a 58-year-old male with pancreatic cancer with left-sided hydronephrosis with nephrostomy tube in place with recent diagnosis of urinary tract infection based on urine culture result from 10 3 who is had a single dose of ceftriaxone and 1 dose of Levaquin in the last 24 hr who now re- presented is with severe left-sided flank pain. He is on high dose opiate pain medication as prescribed by his health communications specialist. He recently increased Dilaudid and MS Contin doses. He has been having some bowel movements. His nephrostomy tube is draining clear urine and he also self catheterizes with yellow-colored urine. The cause of his pain could be related to the malignancy itself, other considerations include pyelonephritis which is probably playing a contributing old, constipation is also a consideration. Plan here for trial of low-dose ketamine, IV fluids, pain control, basic labs and CT scan of his abdomen pelvis to evaluate for cause of this pain. The patient received ketamine 20 mg and had an unfavorable response with hallucinations. Labs were checked and were unremarkable. Patient was given a small dose of Ativan. CT scan demonstrated enlarging pancreatic mass, small ascites, constipation, tiny air bubble in urinary tract. The patient's pain is likely related to his pancreatic mass and constipation could be a contributing factor. Given that the patient's urine is now clear and previously was cloudy and that he is not febrile I do not think the air bubble in the urinary tract represents gas-forming organism and is likely related to manipulation. I again offered patient admission to the hospital. He feels strongly and clearly that he would like to go home so that he can make his follow-up appointment with Dr. Watson later today. I explained if we admitted him to the hospital he would see the on-call oncologist, however he would like to see his primary oncologist. We discussed celiac plexus block as a possible modality to manage his pain given that this pattern of recurrent a nocturnal pain has become quite severe. He will discuss this with his oncologist. - Data Points Laboratory Results: Laboratory Results 04/27/18 00:45 04/27/18 00:45 04/27/18 04/27/18 00:45 00:45 WBC 7.56 10^3/uL 10^3/uL (3.80-9.50) RBC 4.03 10^6/uL L 10^6/uL (4.40-6.38) Hgb 12.0 g/dL L g/dL (13.7-17.5) Hct 36.1 % L % (40.0-51.0) MCV 89.6 fL fL (81.5-99.8) MCH 29.8 pg pg (27.9-34.1) MCHC 33.2 g/dL g/dL (32.4-36.7) RDW 12.6 % % (11.5-15.2) Plt Count 191 10^3/uL 10^3/uL (150-400) MPV 11.2 fL fL (8.7-11.7) Neut % (Auto) 68.2 % % (39.3-74.2) Lymph % (Auto) 17.6 % % (15.0-45.0) Maury % (Auto) 9.4 % % (4.5-13.0) Eos % (Auto) 4.0 % % (0.6-7.6) Baso % (Auto) 0.7 % % (0.3-1.7) Nucleat RBC Rel Count 0.0 % % (0.0-0.2) Absolute Neuts (auto) 5.16 10^3/uL 10^3/uL (1.70-6.50) Absolute Lymphs (auto) 1.33 10^3/uL 10^3/uL (1.00-3.00) Absolute Monos (auto) 0.71 10^3/uL 10^3/uL (0.30-0.80) Absolute Eos (auto) 0.30 10^3/uL 10^3/uL (0.03-0.40) Absolute Basos (auto) 0.05 10^3/uL 10^3/uL (0.02-0.10) Absolute Nucleated RBC 0.00 10^3/uL 10^3/uL (0-0.01) Immature Gran % 0.1 % % (0.0-1.1) Immature Gran # 0.01 10^3/uL 10^3/uL (0.00-0.10) Sodium 137 mEq/L mEq/L (135-145) Potassium 4.2 mEq/L mEq/L (3.3-5.0) Chloride 102 mEq/L mEq/L (97-110) Carbon Dioxide 26 mEq/l mEq/l (22-31) Anion Gap 9 mEq/L mEq/L (8-16) BUN 14 mg/dL mg/dL (7-23) Creatinine 0.7 mg/dL mg/dL (0.7-1.3) Estimated GFR > 60 Glucose 94 mg/dL mg/dL (70-100) Calcium 9.3 mg/dL mg/dL (8.5-10.4) Medications Given: Discontinued Medications Hydromorphone HCl (Dilaudid) 1 mg IVP EDNOW ONE Stop: 04/27/18 00:57 Last Admin: 04/27/18 00:57 Dose: 1 mg Sodium Chloride (Ns) 1,000 mls @ 0 mls/hr IV EDNOW ONE; Wide Open PRN Reason: Protocol Stop: 04/27/18 00:51 Last Admin: 04/27/18 00:50 Dose: 1,000 mls Ketamine HCl (Ketamine) 30 mg IVP EDNOW ONE Stop: 04/27/18 01:11 Last Admin: 04/27/18 01:29 Dose: 20 mg Lorazepam (Ativan Injection) 0.5 mg IVP EDNOW ONE Stop: 04/27/18 02:23 Last Admin: 04/27/18 02:53 Dose: 0.5 mg Departure - Departure Disposition: Home, Routine, Self-Care Clinical Impression: Left flank pain, Pancreatic cancer Condition: Fair Instructions: Flank Pain (ED) Additional Instructions: Please return to the emergency department if your worse in any way. Referrals: JAYESH FRITZ [Primary Care Provider] - As per Instructions Christopher Watson MD [Medical Doctor] - As per Instructions
[2018-04-27 01:27] LABS: PLATELET COUNT 191 10^3/uL (150-400)
[2018-04-27] MEDS ORDERED: IOPAMIDOL (ISOVUE-300) 100 ML BTL ONE (01:36)
[2018-04-27] MEDS ORDERED: LORazepam 2 MG/ML INJ IVP ONE (02:22)
[2018-04-27 03:55] VITALS: BP 114/69
== END 2018-04-27 03:52 | disposition home or self-care (01) ==
DX: R10.9 Unspecified abdominal pain (principal); G89.3 Neoplasm related pain (acute) (chronic); E86.9 Volume depletion, unspecified; C25.9 Malignant neoplasm of pancreas, unspecified; Z93.6 Other artificial openings of urinary tract status
CPT/HCPCS: 96374; J1170; J2060; Q9967

== ENCOUNTER 2018-04-27 15:10 | Inpatient (IN) | payer OTHER ==
[2018-04-27] MEDS ORDERED: ACETAMINOPHEN 325 MG TAB PO PRN (15:35)
[2018-04-27] MEDS ORDERED: ONDANSETRON 4 MG/2 ML VIAL IVP PRN ×2 (15:35→16:27)
[2018-04-27] MEDS ORDERED: ONDANSETRON DISINTEGRATING 4 MG TAB PO PRN (15:35)
[2018-04-27] MEDS ORDERED: LORazepam 2 MG/ML INJ IVP PRN (15:35)
--- NOTE | 2018-04-27 16:16 | ASMTCMCOM ---
CM Note CM Note Notes: Patient chart reviewed for discharge planning purposes, Patient known to oncology floor. Has [facility] managing his pain and [facility] following for RN care. He is admitted with intractable pain. New diagnosis of UTI on antibiotics. Has large support network. Per CT disease process advancing and likely contributing to increased pain. CM to follow for needs, Plan TBD Date Signed: 04/27/2018 04:15 PM Electronically Signed By:Corinne Han RN
[2018-04-27] MEDS ORDERED: NALOXONE HCL 0.4 MG/ML INJ IVP PRN (16:24)
[2018-04-27] MEDS ORDERED: BISACODYL 10 MG SUPP PR PRN (16:26)
[2018-04-27] MEDS ORDERED: MAGNESIUM CITRATE 300 ML BOTTLE PO PRN (16:26)
[2018-04-27] MEDS ORDERED: MAGNESIUM HYDROXIDE 30 ML UDCUP PO PRN (16:26)
[2018-04-27] MEDS ORDERED: LACTULOSE 20 GM/30 ML UDCUP PO PRN (16:26)
--- NOTE | 2018-04-27 16:31 | PDGENHP ---
History and Physical - Chief Complaint Acute abdominal pain - History of Present Illness Primary oncologist: Dr. Christopher Watson HPI: 58-year-old male presenting with acute abdominal pain located in his left flank with associated nausea, urinary retention. The onset of this pain was with the patient's diagnosis of metastatic pancreatic cancer, and he was most recently discharged from our hospital 2 weeks ago. He reports that since that time, he has gone through several cycles of improved pain control, and then exacerbation crisis. During this interval, he has up titrated his p.r.n. And scheduled medications as follows: Dilaudid has been up titrated to 6 mg as needed q.3 hours, morphine sulfate up titrated to 75 mg in the morning, 90 mg at night, and these dosages have failed to alleviate his pain. He has been utilizing Zofran as an antiemetic, but he believes that it has somewhat exacerbated constipation, which has required an aggressive bowel regiment. He has presented to the emergency department twice in the past 2 days seeking pain relief, and he reports that his pain control was improved with IV Dilaudid received in the emergency department as well as IV fluids and supplemental oxygen. 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 He has been enrolled in palliative care in the outpatient setting and he has been unable to manage his pain symptoms with this service. He is requesting hospice care moving forward, but he would prefer to have pain management at home as opposed to the care center. History Information - Allergies/Home Medication List Allergies/Adverse Reactions: No Known Allergies Allergy (Verified 04/27/18 00:29) Home Medications: Relistor 04/26/18 [Last Taken Unknown] I have personally reviewed and updated: family history, medical history, social history, surgical history - Past Medical History Additional medical history: Pancreatic adenocarcinoma. Left hydronephrosis secondary to ureteral obstruction s/p percutaneous nephrostomy tube 03/2018. Urinary retention, straight caths - Surgical History Additional surgical history: Left percutaneous nephrostomy tube. Hemorrhoidectomy in his 20s - Family History Additional family history: Adopted so patient does not know his biologic family history - Social History Smoking Status: Never smoked Alcohol Use: Occasionally Drug Use: None Additional social history: . 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 Independent in ADLs Review of Systems Review of Systems: ROS: 10pt was reviewed & negative except for what was stated in HPI & below Gastrointestinal: Reports: abdominal pain, constipation, nausea Neurological: Reports: anxiety Physical Exam Physical Exam: Temp Pulse Resp BP Pulse Ox 37.0 C 73 18 121/74 H 95 04/27/18 15:40 04/27/18 15:40 04/27/18 15:40 04/27/18 15:40 04/27/18 15:40 Constitutional: chronically ill appearing, uncomfortable, cachectic, No not in pain (Moderate) Eyes: PERRL, anicteric sclera, EOMI Ears, Nose, Mouth, Throat: hearing normal, ears appear normal Cardiovascular: regular rate and rhythym, no murmur, rub, or gallop, No edema Respiratory: reduced air movement (Left base), No expiratory wheeze, No inspiratory crackles, No bronchial breath sounds Gastrointestinal: normoactive bowel sounds, ascites (Mild), distension (Mild), No tenderness, No guarding Skin: warm, No erythema, No rash Neurologic: AAOx3, No facial droop Psychiatric: interacting appropriately, not encephalopathic, thought process linear, anxious, No agitated Lab Data & Imaging Review Visualized and Interpreted imaging results: Yes Interpretation: Abdominal CT demonstrates increased metastatic disease with invasion of the celiac plexus, ascites, peritoneal carcinomatosis, percutaneous nephrostomy tube Assessment & Plan Assessment: 58-year-old male presents with acute abdominal pain secondary to worsening metastatic disease with invasion of his celiac plexus Plan: 1. Abdominal pain. Acute, new problem this provider, further workup indicated. Further evaluation is needed to determine appropriate methods for controlling his pain, as the patient's pain management the outpatient setting is inadequate and he is present to the emergency room twice in last 2 days despite receiving palliative services at home. Because of his increased pain is most likely invasion of his celiac plexus with ongoing metastatic disease and peritoneal carcinomatosis with ascites. -discussed with patient and his advocate increasing his p.r.n. Oral Dilaudid from 6 mg to 8 mg q.3 hours p.r.n. To help provide him with enough sustained release to get several hours of sleep at night, utilizing the Dilaudid DAYLIGHT DRILLER for additional breakthrough -will continue his current MS Contin dosage of 75 in the morning, 90 at night -will utilize Reglan as first-line treatment for nausea given his concomitant element of constipation 2. Constipation. Significant, secondary to opiate induced constipation as well as metastatic disease, no evidence of bowel obstruction on CT -bowel regimen ordered, enemas as needed -continue scheduled relative store an at p.r.n. Reglan as above 3. 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 Discussed with Dr. Ed Stokes, he reports to me that his schedulers will work to find an appropriate time for the procedure tomorrow and I will keep the patient NPO after midnight with ongoing IV fluids -patient is requesting transition to hospice and hospice eval and treat order has been placed, he would like home hospice if possible 4. Hydronephrosis. Left side, secondary to tumor invasion -reviewed outside records including 04/13/[address] Yonas Frias, reports patient received an IR directed nephrostomy tube -continue draining tube 5. Urinary retention. Most likely secondary to significant opiate effect, straight catheterization versus Joseph catheter per patient request 6. Continuous opiate dependency. The patient requires opiates for pain management of above, continue aforementioned pain management strategy 7. Insomnia. Most likely impacted by above with strong anxiety component regarding his pain medications -patient on low dosages of trazodone and gabapentin, will increase both these medications this evening and gauge effect -he is also taking scheduled Ativan at specific intervals at night and he is on low dosages, if he requires additional sleep aid, would recommend up titrating his medications -IV Ativan for breakthrough 8. Suspected atelectasis. Based on physical exam, left base, patient will likely require supplemental oxygen with his respiratory suppression from opiates , and this seems consistent with his goals of care because the patient would like to be able to finish his book prior to passing away Diet. Regular this evening as tolerates, NPO after midnight with IV fluids Prophylaxis. High risk patient, hold pharmacologic and mechanical given goals of care Code. Do not resuscitate per patient, his is MD SMALLS Dispo. Anticipated discharge uncertain this time, anticipated length stay is greater than 48 hr for reasonable medical necessity including acute pain control requiring IV DAYLIGHT DRILLER as well as substantial adjustments in pain medications.
[2018-04-27] MEDS ORDERED: Herbals/Supplements -Info Only PO SCH (17:00)
[2018-04-27] MEDS: GABAPENTIN 300 MG CAP PO SCH (18:37)
[2018-04-27] MEDS: TAMSULOSIN HCL 0.4 MG CAP PO SCH (18:38)
[2018-04-27] MEDS: morphINE SR 30 MG TAB PO SCH (18:38)
[2018-04-27] MEDS: HYDROmorphONE/DILAUDID 4 MG TAB PO PRN ×2 (18:38→23:30)
[2018-04-27] MEDS: [UNRECOGNIZED DRUG - OTHER] PO SCH ×3 (19:46→22:16)
[2018-04-27] MEDS: POTASSIUM CHLORIDE PO SCH ×3 (19:46→22:16)
[2018-04-27] MEDS: SODIUM BICARBONATE PO SCH ×3 (19:46→22:16)
[2018-04-27] MEDS: SODIUM CHLORIDE PO SCH ×3 (19:46→22:16)
[2018-04-27] MEDS: SODIUM SULFATE PO SCH ×3 (19:46→22:16)
[2018-04-27] MEDS ORDERED: LIDOCAINE 2% JELLY 20 ML (UROJECT) UR ONE (20:08)
[2018-04-27] MEDS: SENNOSIDES/DOCUSATE SODIUM TAB PO SCH (22:00)
[2018-04-27] MEDS: ACETAMINOPHEN 500 MG TAB PO SCH (22:00)
[2018-04-27] MEDS: LORazepam 0.5 MG TAB PO SCH (22:01)
[2018-04-27] MEDS: traZODone 100 MG TAB PO SCH (22:01)
[2018-04-27] MEDS: METHYLNALTREXONE BROMIDE 150 MG PO SCH (22:02)
[2018-04-27] MEDS: METOCLOPRAMIDE 10 MG/2 ML VIAL IVP PRN (22:06)
[2018-04-27] MEDS ORDERED: D5W 1/2 NS 1,000 ML IV SCH (23:55)
[2018-04-28] MEDS: SODIUM CHLORIDE PO SCH ×7 (03:19→22:37)
[2018-04-28] MEDS: SODIUM SULFATE PO SCH ×7 (03:19→22:37)
[2018-04-28] MEDS: [UNRECOGNIZED DRUG - OTHER] PO SCH ×7 (03:19→22:37)
[2018-04-28] MEDS: SODIUM BICARBONATE PO SCH ×7 (03:19→22:37)
[2018-04-28] MEDS: POTASSIUM CHLORIDE PO SCH ×7 (03:19→22:37)
[2018-04-28] MEDS: HYDROmorphONE/DILAUDID 4 MG TAB PO PRN ×2 (04:07→18:14)
[2018-04-28] MEDS: LORazepam 0.5 MG TAB PO SCH ×2 (04:07→20:06)
[2018-04-28] MEDS: GABAPENTIN 300 MG CAP PO SCH ×2 (05:01→18:00)
[2018-04-28] MEDS: ACETAMINOPHEN 500 MG TAB PO SCH ×3 (08:37→20:06)
[2018-04-28] MEDS: SENNOSIDES/DOCUSATE SODIUM TAB PO SCH ×2 (08:37→20:06)
[2018-04-28] MEDS: morphINE SR 15 MG TAB PO SCH (08:38)
[2018-04-28] MEDS: TAMSULOSIN HCL 0.4 MG CAP PO SCH ×2 (08:38→18:01)
[2018-04-28] MEDS: morphINE SR 60 MG TAB PO SCH (08:38)
[2018-04-28] MEDS: METOCLOPRAMIDE 10 MG/2 ML VIAL IVP PRN ×2 (08:43→17:28)
--- NOTE | 2018-04-28 09:34 | HOSPPROG ---
Hospitalist Progress Note Assessment/Plan: # pain from pancreatic cancer - better controlled on dilaudid 8md PO Q3H, ms menon 75/90, neyda 600 - celiac block planned for today # pancreatic cancer, likely metastatic # L sided hydronephrosis - likely d/t metastatic LN - nephrostomy tube # urinary retention - follow # constipation - will follow with treatment # dispo - interested in hospice, appropriate; consult placed Subjective: pain better controlled today; asking when his procedure will be Objective: Vital Signs Temp Pulse Resp BP Pulse Ox 36.6 C 70 14 118/90 H 97 04/28/18 08:38 04/28/18 08:38 04/28/18 08:38 04/28/18 08:38 04/28/18 08:38 04/27/18 04/28/18 04/29/18 05:59 05:59 05:59 Output Total 1000 Balance -[address] reviewed - Physical Exam Constitutional: no apparent distress, appears nourished Eyes: anicteric sclera Ears, Nose, Mouth, Throat: hearing normal Cardiovascular: No edema Respiratory: no respiratory distress Gastrointestinal: No distension Genitourinary: other (nephrostomy) Skin: normal color Musculoskeletal: full muscle strength Neurologic: AAOx3 Psychiatric: not anxious ICD10 Worksheet Patient Problems: Problems Problem Status Onset Left flank pain Acute Pancreatic abnormality Acute
--- NOTE | 2018-04-28 10:39 | ASMTCMCOM ---
CM Note CM Note Notes: Chart reviewed. Per MD orders, patient to have referral to Hospice. Orders sent in allscripts. Patient to have Celiac Block today in attempt to help with pain management. Current with [facility]. CM to follow. Plan: Home with hospice. Date Signed: 04/28/2018 10:38 AM Electronically Signed By:Corinne Han RN
[2018-04-28 11:09] LABS: INR 1.13 (0.83-1.16); PROTIME(PATIENT) 14.7 SEC (12.0-15.0)
[2018-04-28] MEDS ORDERED: fentaNYL 100 MCG/2 ML INJ IVP PRN (12:12)
[2018-04-28] MEDS ORDERED: MIDAZOLAM 2 MG/2 ML VIAL IVP PRN (12:12)
[2018-04-28] MEDS ORDERED: FLUMAZENIL 0.5 MG/5 ML MDV IVP PRN (12:12)
[2018-04-28] MEDS ORDERED: ETHYL ALCOHOL 98% 5 ML AMP MISC ONE ×2 (13:00)
--- NOTE | 2018-04-28 13:07 | PDPROPOC ---
Sedation Plan of Care Sedation Plan of Care: vital signs stable, mental status noted, patient educated of risks, benefits, alternatives ASA Classification: ASA 2 Mallampati Score: Class 2 Mallampati Reference Image:
[2018-04-28] MEDS ORDERED: LIDOCAINE 1% 300 MG/30 ML SDV ONE ×2 (13:11→15:09)
[2018-04-28] MEDS ORDERED: IOPAMIDOL (ISOVUE-300) 100 ML BTL ONE (13:12)
--- NOTE | 2018-04-28 13:42 | PDMN ---
Medical Necessity Medical necessity: Pt meets inpt criteria per MD order and Pain Mangement GRG, Medical Oncology GRG. 58 y/o admitted w/acute abdominal pain secondary to worsening metastatic pancreatic cancer w/invasion of his celiac plexus, inadequate pain control in outpt setting, hydronephrosis sec to tumor invasion, urinary retention, suspected atelectasis, and constipation. IV Dilaudid VOICE TEACHER initiated for pain control, IVF, IV antiemetics, IV Ativan for anxiety, celiac block planned for today. Anticipate>2MN for ongoing management of above.
[2018-04-28] MEDS: NS 1,000 ML IV SCH (13:51)
--- NOTE | 2018-04-28 15:20 | PDRADPN ---
Radiology Procedure Note Date of Procedure: 04/28/18 Radiologist: Libia Sanches Anesthesia: IV Sedation Pre-op Diagnosis: pain Post-op Diagnosis: same Procedure: celiac plexus neurolysis Inf/Abcess present in the surg proc area at time of surgery?: No
--- NOTE | 2018-04-28 16:36 | ASMTCMCOM ---
CM Note CM Note Notes: Spoke with Mildred at [facility] and they have set aside some time tomorrow to see patient but that is contingent on the outcome of his celiac plexus block and if he is able to discharge. I attempted to see him this afternoon but he is at his procedure at this time. He is decisional. CM to follow . Plan: Likely home with [facility] services. Date Signed: 04/28/2018 04:35 PM Electronically Signed By:Corinne Han RN
[2018-04-28] MEDS: morphINE SR 30 MG TAB PO SCH (18:00)
[2018-04-28] MEDS: METHYLNALTREXONE BROMIDE 150 MG PO SCH (18:03)
[2018-04-28] MEDS: POLYETHYLENE GLYCOL 3350 17 GM PKT PO PRN (18:14)
[2018-04-28] MEDS: HYDROmorphONE/DILAUDID 6 MG/30 ML PCA IV PRN (20:28)
[2018-04-29] MEDS: POTASSIUM CHLORIDE PO SCH ×10 (01:53→21:52)
[2018-04-29] MEDS: [UNRECOGNIZED DRUG - OTHER] PO SCH ×10 (01:53→21:52)
[2018-04-29] MEDS: SODIUM SULFATE PO SCH ×10 (01:53→21:52)
[2018-04-29] MEDS: SODIUM CHLORIDE PO SCH ×10 (01:53→21:52)
[2018-04-29] MEDS: SODIUM BICARBONATE PO SCH ×10 (01:53→21:52)
[2018-04-29] MEDS: traZODone 100 MG TAB PO SCH (01:53)
[2018-04-29] MEDS: LORazepam 0.5 MG TAB PO SCH ×2 (02:14→20:55)
[2018-04-29] MEDS: GABAPENTIN 300 MG CAP PO SCH ×2 (05:11→18:03)
[2018-04-29] MEDS: HYDROmorphONE/DILAUDID 6 MG/30 ML PCA IV PRN ×3 (07:52→21:04)
[2018-04-29] MEDS: ACETAMINOPHEN 500 MG TAB PO SCH ×4 (09:33→20:55)
[2018-04-29] MEDS: morphINE SR 60 MG TAB PO SCH ×2 (09:34→11:08)
[2018-04-29] MEDS: morphINE SR 15 MG TAB PO SCH ×2 (09:34→11:08)
[2018-04-29] MEDS: SENNOSIDES/DOCUSATE SODIUM TAB PO SCH ×2 (09:35→20:54)
[2018-04-29] MEDS: TAMSULOSIN HCL 0.4 MG CAP PO SCH ×2 (09:35→18:04)
[2018-04-29] MEDS: METOCLOPRAMIDE 10 MG/2 ML VIAL IVP PRN ×2 (09:35→18:04)
--- NOTE | 2018-04-29 10:51 | HOSPPROG ---
Hospitalist Progress Note Assessment/Plan: # pain from pancreatic cancer - celiac block did not seem to help - we discussed that he could control his medications as much as possible - will continue dilaudid 1mg/hr gtt - will also continue ms contin 75/90, neyda 600 with the goal of not having him tethered to the gtt all day # pancreatic cancer, metastatic - reported outpatient PET positive # L sided hydronephrosis - likely d/t metastatic LN - nephrostomy tube # urinary retention - has casanova # constipation - will follow with treatment # dispo - interested in hospice, appropriate; consult placed - will see [facility] today and [facility] tomorrow Subjective: pain not better after the celiac block; placed ondilaudid gtt last night; seen with multiple friends Objective: Vital Signs Temp Pulse Resp BP Pulse Ox 36.8 C 80 16 135/78 H 91 L 04/29/18 08:19 04/29/18 10:05 04/29/18 10:05 04/29/18 10:05 04/29/18 10:05 04/28/18 04/29/18 04/30/18 05:59 05:59 05:59 Intake Total 300 Output Total 1000 701 Balance -1000 -401 PT 14.7 SEC (12.0-15.0) 04/28/18 10:52 INR 1.13 (0.83-1.16) 04/28/18 10:52 high risk on continuous dilaudid gtt - Physical Exam Constitutional: no apparent distress, appears nourished Eyes: anicteric sclera Ears, Nose, Mouth, Throat: hearing normal Cardiovascular: No edema Respiratory: no respiratory distress Gastrointestinal: No distension Genitourinary: casanova in urethra, other (nephrostomy tube) Skin: warm Musculoskeletal: full muscle strength Neurologic: AAOx3 Psychiatric: not anxious ICD10 Worksheet Patient Problems: Problems Problem Status Onset Pancreatic abnormality Acute Left flank pain Acute
--- NOTE | 2018-04-29 13:48 | ASMTCMCOM ---
CM Note CM Note Notes: Chart reviewed. Patient known to us and has worsening pancreatic cancer. Met with patient who had his friend/caregiver Kobe in his room. He shares with me that the plexus block has failed to help with his pain. He shares that Kobe has called [facility] and scheduled a meeting with them today even though he is a patient of [facility]. Refer placed upon request. [facility] is most interested in pursuing medical aid in dying. "I don't want to drag this out". I spoke with [facility] and per patient request he would prefer to see them tomorrow. Stefano Lundberg also involved with helping patient navigate his pursuit of this process. Plan: Home with hospice when medically ready for discharge. Date Signed: 04/29/2018 01:47 PM Electronically Signed By:Corinne Han RN
[2018-04-29] MEDS: POLYETHYLENE GLYCOL 3350 17 GM PKT PO PRN (16:41)
[2018-04-29] MEDS: morphINE SR 30 MG TAB PO SCH (18:03)
[2018-04-29] MEDS: NS 1,000 ML IV SCH (18:03)
[2018-04-29] MEDS: METHYLNALTREXONE BROMIDE 150 MG PO SCH (18:08)
[2018-04-30] MEDS: traZODone 100 MG TAB PO SCH ×2 (00:11→23:04)
[2018-04-30] MEDS: HYDROmorphONE/DILAUDID 6 MG/30 ML PCA IV PRN ×3 (01:41→20:13)
[2018-04-30] MEDS: NS 1,000 ML IV SCH (04:07)
[2018-04-30] MEDS: LORazepam 0.5 MG TAB PO SCH ×2 (04:10→20:28)
[2018-04-30] MEDS: GABAPENTIN 300 MG CAP PO SCH ×2 (05:50→17:47)
[2018-04-30] MEDS: [UNRECOGNIZED DRUG - OTHER] PO SCH ×8 (06:35→22:58)
[2018-04-30] MEDS: SODIUM CHLORIDE PO SCH ×8 (06:35→22:58)
[2018-04-30] MEDS: SODIUM SULFATE PO SCH ×8 (06:35→22:58)
[2018-04-30] MEDS: POTASSIUM CHLORIDE PO SCH ×8 (06:35→22:58)
[2018-04-30] MEDS: SODIUM BICARBONATE PO SCH ×8 (06:35→22:58)
[2018-04-30] MEDS: HYDROmorphONE/DILAUDID 4 MG TAB PO PRN ×4 (07:40→17:03)
[2018-04-30] MEDS: METOCLOPRAMIDE 10 MG/2 ML VIAL IVP PRN ×2 (07:45→17:04)
[2018-04-30] MEDS: morphINE SR 60 MG TAB PO SCH (09:37)
[2018-04-30] MEDS: POLYETHYLENE GLYCOL 3350 17 GM PKT PO PRN (09:37)
[2018-04-30] MEDS: morphINE SR 15 MG TAB PO SCH (09:37)
[2018-04-30] MEDS: TAMSULOSIN HCL 0.4 MG CAP PO SCH ×2 (09:38→17:47)
[2018-04-30] MEDS: ACETAMINOPHEN 500 MG TAB PO SCH ×3 (09:38→23:05)
[2018-04-30] MEDS: SENNOSIDES/DOCUSATE SODIUM TAB PO SCH ×2 (09:38→20:28)
--- NOTE | 2018-04-30 11:30 | ASMTCMCOM ---
CM Note CM Note Notes: [facility] met with pt this morning. They offered him a bed in their in-pt unit where their focus would be on helping him to manage his pain; a d/c home could follow this. Pt indicated that if he did this he would still want to pursue a medically assisted and would maintain his appt with a physician for next . CM will follow. D/C Plan: TBD Date Signed: 04/30/2018 11:29 AM Electronically Signed By:Bel Causey
[2018-04-30] MEDS: METHYLNALTREXONE BROMIDE 150 MG PO SCH ×2 (12:31→12:33)
[2018-04-30] MEDS ORDERED: LIDOCAINE 2% JELLY 20 ML (UROJECT) UR PRN (13:39)
--- NOTE | 2018-04-30 13:41 | HOSPPROG ---
Hospitalist Progress Note Assessment/Plan: # pain from pancreatic cancer - celiac block did not seem to help - he intermittently uses dilaudid 1mg/hr gtt - he can decide when to use - will also continue ms contin 75am 90->115hs today, neyda 600 with the goal of not having him tethered to the gtt all day # urinary retention - has casanova - casanova causing discomfort - will try uroject and empirically treat for UTI ( though I doubt this is a UTI) # pancreatic cancer, metastatic - reported outpatient PET positive # L sided hydronephrosis - likely d/t metastatic LN - nephrostomy tube # constipation - will follow with treatment # dispo - likely to [facility] tomorrow; he will look into physician assisted suicide Subjective: pain controlled currently; had sever pain overnight relieved with dilaudid IV; also complains of pain at penile meatus; met with patient, friends and family;. 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 - Physical Exam Constitutional: no apparent distress, appears nourished Neurologic: AAOx3 ICD10 Worksheet Patient Problems: Problems Problem Status Onset Left flank pain Acute Pancreatic abnormality Acute
[2018-04-30] MEDS: morphINE SR 30 MG TAB PO SCH (17:48)
[2018-04-30] MEDS ORDERED: morphINE SR 15 MG TAB PO SCH (18:00)
[2018-04-30] MEDS ORDERED: METHYLNALTREXONE BROMIDE 150 MG PO SCH (18:00)
[2018-05-01] MEDS: HYDROmorphONE/DILAUDID 6 MG/30 ML PCA IV PRN ×2 (01:11→06:27)
[2018-05-01] MEDS: LORazepam 0.5 MG TAB PO SCH (04:10)
[2018-05-01] MEDS: GABAPENTIN 300 MG CAP PO SCH (06:03)
[2018-05-01 07:16] VITALS: BP 118/65
[2018-05-01] MEDS: SENNOSIDES/DOCUSATE SODIUM TAB PO SCH (07:43)
[2018-05-01] MEDS: ACETAMINOPHEN 500 MG TAB PO SCH ×2 (07:43→12:11)
[2018-05-01] MEDS: morphINE SR 15 MG TAB PO SCH (07:43)
[2018-05-01] MEDS: METOCLOPRAMIDE 10 MG/2 ML VIAL IVP PRN (07:43)
[2018-05-01] MEDS: TAMSULOSIN HCL 0.4 MG CAP PO SCH (07:44)
[2018-05-01] MEDS: morphINE SR 60 MG TAB PO SCH (07:44)
[2018-05-01] MEDS: HYDROmorphONE/DILAUDID 4 MG TAB PO PRN ×2 (07:57→12:07)
--- NOTE | 2018-05-01 09:49 | PDIAF ---
- Diagnosis Diagnosis: pancreatic cancer Code Status: Do Not Resuscitate - Medication Management Discharge Medications: Medications to Continue on Transfer Acetaminophen [Tylenol ES 500 mg (*)] 1,000 mg PO TID 04/27/18 [Last Taken 04/27 16:00] Gabapentin [Neurontin 300 MG (*)] 300 mg PO BID@04/27/18 [Last Taken 04/27 06:00] HYDROmorphone HCL [Dilaudid 2 mg (*)] 6 mg PO Q3H 04/27/18 [Last Taken 04/27/18 15:00] Herbals/Supplements -Info Only 3 g PO Q3H 04/27/18 [Last Taken 04/27/18 12:00] LORazepam [Ativan (*)] 0.5 mg PO BID@04/27/18 [Last Taken 04/27/18 03:00] Methylnaltrexone [place] [Relistor] 150 mg PO DAILY@04/27/18 [Last Taken 02/04 18:00] Ondansetron Odt [Zofran Odt 4 mg (*)] 4 mg PO Q4 PRN 04/27/18 [Last Taken 09:00] [id number]/Sod Sulf,Bicarb,Cl/KCl [Golytely Packet] 50 ml PO Q3H 04/27/18 [Last Taken 04/27/18 12:00] Tamsulosin HCl [Flomax 0.4 MG (*)] 0.4 mg PO BID@04/27/18 [Last Taken 03/07 09:00] morphINE SR [MS Contin/Oramorph 60 mg (*)] 60 mg PO DAILY@04/27/18 [Last Taken 04/27/18 09:00] morphINE SR [MS Contin/Oramorph SR 30 mg (*)] 90 mg PO DAILY@04/27/18 [Last Taken 04/26/18 18:00] morphINE SR [Ms Contin/Oramorph 15 mg (*)] 15 mg PO DAILY@04/27/18 [Last Taken 04/27/18 09:00] traZODone [traZODONE 50MG (*)] 50 mg PO DAILY@2330 04/27/18 [Last Taken 23:30] HYDROmorphone HCL [Dilaudid 4 mg (*)] 8 mg PO Q3 PRN tab 05/01/18 [Last Taken Unknown] Lidocaine 2% Jelly [Uroject Lidocaine 2% Jelly] 20 ml UR PRN PRN syr 05/01/18 [ Last Taken Unknown] Magnesium Citrate [Magnesium Citrate 300 ml (*)] 300 ml PO DAILY PRN bottle 07/07 [Last Taken Unknown] levOFLOXACIN [levAQUIN (*)] 750 mg PO DAILY AT 10AM 4 Days tab 05/01/18 [Last Taken Unknown] morphINE SR [Ms Contin/Oramorph 15 mg (*)] 15 mg PO DAILY@18 tab 05/01/18 [ Last Taken Unknown] traZODone [traZODONE 100MG (*)] 100 mg PO DAILY@2330 tab 05/01/18 [Last Taken Unknown] Discharge Medications: Refer to the Discharge Home Medication list for PRN reason. - Follow Up Care Current Providers and Referrals: JAYESH FRITZ [Primary Care Provider] -
[2018-05-01] MEDS: SODIUM SULFATE PO SCH (10:42)
[2018-05-01] MEDS: [UNRECOGNIZED DRUG - OTHER] PO SCH (10:42)
[2018-05-01] MEDS: SODIUM BICARBONATE PO SCH (10:42)
[2018-05-01] MEDS: SODIUM CHLORIDE PO SCH (10:42)
[2018-05-01] MEDS: POTASSIUM CHLORIDE PO SCH (10:42)
--- NOTE | 2018-05-01 10:49 | PDIAF ---
- Diagnosis Diagnosis: pancreatic cancer Code Status: Do Not Resuscitate - Medication Management Discharge Medications: Medications to Continue on Transfer Acetaminophen [Tylenol ES 500 mg (*)] 1,000 mg PO TID 04/27/18 [Last Taken 04/27 16:00] Gabapentin [Neurontin 300 MG (*)] 300 mg PO BID@04/27/18 [Last Taken 04/27 06:00] HYDROmorphone HCL [Dilaudid 2 mg (*)] 6 mg PO Q3H 04/27/18 [Last Taken 04/27/18 15:00] Herbals/Supplements -Info Only 3 g PO Q3H 04/27/18 [Last Taken 04/27/18 12:00] LORazepam [Ativan (*)] 0.5 mg PO BID@04/27/18 [Last Taken 04/27/18 03:00] Methylnaltrexone [place] [Relistor] 150 mg PO DAILY@04/27/18 [Last Taken 02/04 18:00] Ondansetron Odt [Zofran Odt 4 mg (*)] 4 mg PO Q4 PRN 04/27/18 [Last Taken 09:00] [id number]/Sod Sulf,Bicarb,Cl/KCl [Golytely Packet] 50 ml PO Q3H 04/27/18 [Last Taken 04/27/18 12:00] Tamsulosin HCl [Flomax 0.4 MG (*)] 0.4 mg PO BID@04/27/18 [Last Taken 03/07 09:00] morphINE SR [MS Contin/Oramorph 60 mg (*)] 60 mg PO DAILY@04/27/18 [Last Taken 04/27/18 09:00] morphINE SR [MS Contin/Oramorph SR 30 mg (*)] 90 mg PO DAILY@04/27/18 [Last Taken 04/26/18 18:00] morphINE SR [Ms Contin/Oramorph 15 mg (*)] 15 mg PO DAILY@04/27/18 [Last Taken 04/27/18 09:00] traZODone [traZODONE 50MG (*)] 50 mg PO DAILY@2330 04/27/18 [Last Taken 23:30] HYDROmorphone HCL [Dilaudid 4 mg (*)] 8 mg PO Q3 PRN tab 05/01/18 [Last Taken Unknown] HYDROmorphone HCL [Dilaudid DIRECTOR OF ROOMS] 0 mg IV PRN PRN group president 05/01/18 [Last Taken Unknown] Lidocaine 2% Jelly [Uroject Lidocaine 2% Jelly] 20 ml UR PRN PRN syr 05/01/18 [ Last Taken Unknown] Magnesium Citrate [Magnesium Citrate 300 ml (*)] 300 ml PO DAILY PRN bottle 07/07 [Last Taken Unknown] levOFLOXACIN [levAQUIN (*)] 750 mg PO DAILY AT 10AM 4 Days tab 05/01/18 [Last Taken Unknown] morphINE SR [Ms Contin/Oramorph 15 mg (*)] 15 mg PO DAILY@18 tab 05/01/18 [ Last Taken Unknown] traZODone [traZODONE 100MG (*)] 100 mg PO DAILY@2330 tab 05/01/18 [Last Taken Unknown] Discharge Medications: Refer to the Discharge Home Medication list for PRN reason. - Follow Up Care Current Providers and Referrals: JAYESH FRITZ [Primary Care Provider] -
--- NOTE | 2018-05-01 11:28 | ASMTLACE ---
LACE Length of stay for Answers: 3 days current admission Acuity / Level of Answers: Yes Care: Did the patient have an inpatient admission? Comorbidities - select Answers: Any tumor (including all that apply lymphoma or leukemia) Score: 8 Date Signed: 05/01/2018 11:28 AM Electronically Signed By:Bel Causey
--- NOTE | 2018-05-01 11:30 | ASMTDCNOTE ---
Case Management Discharge Discharge Order Complete? Answers: Yes Patient to Obtain Answers: Other Notes: [facility] Medications Transportation Arranged Answers: Family/Friends Transport will Pick (Date 05/01/2018 12:00 PM & Time) Faxed Final Orders Answers: Yes Agency/Facility Transfer Answers: Yes Report Printed & Faxed to Receiving Agency Family Notified Answers: Yes Discharge Comments Notes: Pt discharging to [facility]. Date Signed: 05/01/2018 11:29 AM Electronically Signed By:Bel Causey
--- NOTE | 2018-05-02 15:09 | ASDISCHSUM ---
Discharge Information Plan Status:Hospice-Inpatient Medically Cleared to Leave:05/01/2018 Discharge Date:05/01/2018 12:37 PM D/C Disposition:Hospice Facility ADT D/C Disposition:Hospice Facility Projected Discharge Date:05/01/2018 11:00 AM Transportation at D/C:Friend Discharge Delay Reason: Follow-Up Date:05/01/2018 11:00 AM Discharge Slot: Final Diagnosis: Placement Information Referral Type:*Hospice Referral ID:[id number] Provider Name:[facility] ([facility] Address 1:[address] Address 2: City:[place] Selection Factors: State:[place] Referral Type:*Hospice Referral ID:[id number] Provider Name: Address 1: Phone Number: Address 2: Fax Number: City: Selection Factors: State: Patient Contact Information Contact Name:KAREN Relationship: Address:[address] City:[place] Alternate Phone: State/Zip Code:[place] [address] Email: Financial Information Financial Class:HMO and PPO Plans Primary Plan Desc:[facility] Primary Plan Number:[id number] Secondary Plan Desc: Secondary Plan Number: Assessment Information [facility] CM Progress Note CM Note CM Note Notes: Patient chart reviewed for discharge planning purposes, Patient known to oncology floor. Has [facility] managing his pain and [facility] following for RN care. He is admitted with intractable pain. New diagnosis of UTI on antibiotics. Has large support network. Per CT disease process advancing and likely contributing to increased pain. CM to follow for needs, Plan TBD Date Signed: 04/27/2018 04:15 PM Electronically Signed By:Corinne Han RN [facility] CM Progress Note CM Note CM Note Notes: Chart reviewed. Per MD orders, patient to have referral to Hospice. Orders sent in allscripts. Patient to have Celiac Block today in attempt to help with pain management. Current with [facility]. CM to follow. Plan: Home with hospice. Date Signed: 04/28/2018 10:38 AM Electronically Signed By:Corinne Han RN [facility] Progress Note CM Note CM Note Notes: Spoke with Mildred at [facility] and they have set aside some time tomorrow to see patient but that is contingent on the outcome of his celiac plexus block and if he is able to discharge. I attempted to see him this afternoon but he is at his procedure at this time. He is decisional. CM to follow . Plan: Likely home with [facility] services. Date Signed: 04/28/2018 04:35 PM Electronically Signed By:Corinne Han RN [facility] Progress Note CM Note CM Note Notes: Chart reviewed. Patient known to us and has worsening pancreatic cancer. Met with patient who had his friend/caregiver Kobe in his room. He shares with me that the plexus block has failed to help with his pain. He shares that Kobe has called [facility] and scheduled a meeting with them today even though he is a patient of [facility] Palliative. Refer placed upon request. Jose A is most interested in pursuing medical aid in dying. "I don't want to drag this out". I spoke with [facility] and per patient request he would prefer to see them tomorrow. Stefano Tamika also involved with helping patient navigate his pursuit of this process. Plan: Home with hospice when medically ready for discharge. Date Signed: 04/29/2018 01:47 PM Electronically Signed By:Corinne Han RN [facility] Progress Note CM Note CM Note Notes: [facility] met with pt this morning. They offered him a bed in their in-pt unit where their focus would be on helping him to manage his pain; a d/c home could follow this. Pt indicated that if he did this he would still want to pursue a medically assisted and would maintain his appt with a physician for next . CM will follow. D/C Plan: TBD Date Signed: 04/30/2018 11:29 AM Electronically Signed By:Bel Causey TROY TROY Length of stay for Answers: 3 days current admission Acuity / Level of Answers: Yes Care: Did the patient have an inpatient admission? Comorbidities - select Answers: Any tumor (including all that apply lymphoma or leukemia) Score: 8 Date Signed: 05/01/2018 11:28 AM Electronically Signed By:Bel Causey Case Management Discharge Plan Note Case Management Discharge Discharge Order Complete? Answers: Yes Patient to Obtain Answers: Other Notes: [facility] Medications Transportation Arranged Answers: Family/Friends Transport will Pick (Date 05/01/2018 12:00 PM & Time) Faxed Final Orders Answers: Yes Agency/Facility Transfer Answers: Yes Report Printed & Faxed to Receiving Agency Family Notified Answers: Yes Discharge Comments Notes: Pt discharging to [facility]. Date Signed: 05/01/2018 11:29 AM Electronically Signed By:Bel Causey Intervention Information
== END 2018-05-01 12:37 | disposition hospice, home (50) | DRG 948 ==
LOC: F1N 15:29
PROVIDERS: ADMIT Internal Medicine; ATTEND Internal Medicine
PROC: 3E0T3BZ Introduction of Anesthetic Agent into Peripheral Nerves and Plexi, Percutaneous Approach (ICD-10-PCS; principal; 2018-04-28 15:35)
DX: G89.3 Neoplasm related pain (acute) (chronic) (principal); C25.0 Malignant neoplasm of head of pancreas; C78.6 Secondary malignant neoplasm of retroperitoneum and peritoneum; N13.39 Other hydronephrosis; J98.11 Atelectasis; F11.20 Opioid dependence, uncomplicated; G47.00 Insomnia, unspecified; R33.9 Retention of urine, unspecified; K59.03 Drug induced constipation; Z66 Do not resuscitate
CPT/HCPCS: J1170; J2250; J2765; J3010; Q9967

== ENCOUNTER → 2018-05-14 | Day surgery (SDC) | payer OTHER | END | disposition home or self-care (01) | LOC: FIMAGING 13:06 | PROVIDERS: ATTEND Radiology Diagnostic Radiology | DX: N13.8 Other obstructive and reflux uropathy (principal); T83.022A Displacement of nephrostomy catheter, initial encounter | CPT/HCPCS: 50435; 75984; C1729; C1769 ==

== ENCOUNTER 2018-05-15 20:20 | Observation (INO) | payer OTHER ==
--- NOTE | 2018-05-15 20:35 | EDPHY ---
H & P Stated Complaint: Needs Paracentesis-pancreatic CA/pain. Time Seen by Provider: 05/15/18 20:35 - Personal History Current Tetanus/Diphtheria Vaccine: Unsure Current Tetanus Diphtheria and Acellular Pertussis (TDAP): Unsure Tetanus Vaccine Date: 2008 - Medical/Surgical History Hx Asthma: No Hx Chronic Respiratory Disease: No Hx Diabetes: No Hx Cardiac Disease: No Hx Renal Disease: No Hx Cirrhosis: No Hx Alcoholism: No Hx HIV/AIDS: No Hx Splenectomy or Spleen Trauma: No Other PMH: Pancreatic cancer, hydronephrosis-nephrostomy tube L side. - Social History Smoking Status: Never smoked Constitutional: Initial Vital Signs Temperature (C) 36.4 C 05/15/18 20:29 Heart Rate 72 05/15/18 20:29 Respiratory Rate 18 05/15/18 20:29 Blood Pressure 121/69 H 05/15/18 20:29 O2 Sat (%) 91 L 05/15/18 20:29 O2 Delivery Mode Room Air Allergies/Adverse Reactions: ketamine Allergy (Severe, Verified 05/15/18 20:27) Other-Enter Comments Home Medications: Medication Instructions Recorded Acetaminophen [Tylenol ES 500 mg 1,000 mg PO TID 04/27/18 (*)] Gabapentin [Neurontin 300 MG (*)] 300 mg PO BID@04/27/18 HYDROmorphone HCL [Dilaudid 2 mg 6 mg PO Q3H 04/27/18 (*)] Herbals/Supplements -Info Only 3 g PO Q3H 04/27/18 LORazepam [Ativan (*)] 0.5 mg PO BID@03,21 04/27/18 Methylnaltrexone [place] [Relistor] 150 mg PO DAILY@04/27/18 Ondansetron Odt [Zofran Odt 4 mg 4 mg PO Q4 PRN 04/27/18 (*)] [id number]/Sod Sulf,Bicarb,Cl/KCl 50 ml PO Q3H 04/27/18 [Golytely Packet] Tamsulosin HCl [Flomax 0.4 MG (*)] 0.4 mg PO BID@,04/27/18 morphINE SR [MS Contin/Oramorph 60 60 mg PO DAILY@04/27/18 mg (*)] morphINE SR [MS Contin/Oramorph SR 90 mg PO DAILY@18 04/27/18 30 mg (*)] morphINE SR [Ms Contin/Oramorph 15 15 mg PO DAILY@09 04/27/18 mg (*)] traZODone [traZODONE 50MG (*)] 50 mg PO DAILY@2330 04/27/18 HYDROmorphone HCL [Dilaudid 4 mg 8 mg PO Q3 PRN tab 05/01/18 (*)] HYDROmorphone HCL [Dilaudid FRONT OF HOUSE MANAGER] 0 mg IV PRN PRN 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 05/01/18 Lidocaine 2% Jelly [Uroject 20 ml UR PRN PRN syr 05/01/18 Lidocaine 2% Jelly] Magnesium Citrate [Magnesium 300 ml PO DAILY PRN bottle 05/01/18 Citrate 300 ml (*)] levOFLOXACIN [levAQUIN (*)] 750 mg PO DAILY AT 10AM 4 Days tab 05/01/18 morphINE SR [Ms Contin/Oramorph 15 15 mg PO DAILY@18 tab 05/01/18 mg (*)] traZODone [traZODONE 100MG (*)] 100 mg PO DAILY@2330 tab 05/01/18 Bactrim DS 05/15/18 Dexamethasone 05/15/18 Metoclopramide HCl 05/15/18 Medical Decision Making ED Course/Re-evaluation: CHIEF COMPLAINT: Wants paracentesis HISTORY OF PRESENT ILLNESS: The patient is a 58 y/o male with a history of pancreatic cancer who is on hospice arriving to the emergency department requesting a paracentesis and pain control. He is currently using bolus Dilaudid, which is not helping his pain. He also reports that he cannot take Ketamine as he hallucinates with it. No chest pain, shortness of breath, bowel complaints, numbness, paresthesias, fevers. He reports that he has applied for the medically assisted suicide. REVIEW OF SYSTEMS: A comprehensive 10 system review of systems is otherwise negative aside from elements mentioned in the history of present illness and medical decision making. PHYSICAL EXAM: HR, BP, O2 Sat, RR. Temp noted General Appearance: Subcutaneous Dilaudid pump in place. Alert, well hydrated, appropriate, and non-toxic appearing. Head: Atraumatic without scalp tenderness or obvious injury Eyes: Pinpoint pupils. Pupils equal, round, reactive to light and accommodation , EOMI, no trauma, no injection. Ears: Clear bilaterally, no perforation, normal landmarks Nose: Atraumatic, no rhinorrhea, clear. Throat: There is no erythema or exudates, no lesions, normal tonsils, mucus membranes moist. Neck: Supple, 2+ carotid upstroke, nontender, no lymphadenopathy. Respiratory: No retractions, no distress, no wheezes, and no accessory muscle use. Lungs are clear to auscultation bilaterally. Cardiovascular: Regular rate and rhythm, no murmurs, rubs, or gallops. Bilateral carotid, radial, dorsalis pedis, and posterior tibial pulses intact. Good capillary refill all extremities. Gastrointestinal: Abdomen is distended, soft, nontender, no masses, no rebound , no guarding, no peritoneal signs. Musculoskeletal: Normal active ROM of all extremities, atraumatic. Neurological: Alert, appropriate, and interactive. The patient has normal DTRs and non-focal cranial nerves, motor, sensory, and cerebellar exam. Skin: No rashes, good turgor, no nodules on palpation. Past medical history: Pancreatic cancer, hydronephrosis Past surgical history: Left-sided nephrostomy tube Family history: Denies Social history: Friends at bedside, lives in [place], DIAGNOSTICS/PROCEDURES/CRITICAL CARE TIME: Not indicated. DIFFERENTIAL DIAGNOSIS: The differential diagnosis for the patient's abdominal pain included but was not limited to pancreatic cancer, appendicitis, cholecystitis, hernias, testicular torsion, gastritis, and urinary tract infection. MEDICAL DECISION MAKING: The patient is a 58 y/o male with a history of pancreatic cancer who is on hospice arriving to the emergency department requesting a paracentesis and pain control. I spoke to the radiologists who report that the paracentesis cannot be performed until tomorrow. On exam the patient has a distended abdomen and pinpoint pupils which is due to the bolus Dilaudid that he is taking via a subcutaneous pump. This patient will need to be admitted for pain control. 2048: I consulted with the hospitalist service, Dr. Francois accepts admission of this patient. 2139: 1mg IV Dilaudid administered prior to patient being moved to the floor. Departure - Departure Disposition: [facility] Inpatient Acute Clinical Impression: Pain management Pancreatic cancer Qualifiers: Pancreatic malignancy location: unspecified Qualified Code(s): C25.9 - Malignant neoplasm of pancreas, unspecified Condition: Fair Referrals: JAYESH FRITZ [Primary Care Provider] - As per Instructions Report Scribed for: Maxwell Harley Report Scribed by: Cynthia Rothman Date of Report: 05/15/18 Time of Report: 20:53
[2018-05-15] MEDS ORDERED: HYDROmorphONE/DILAUDID 1 MG/ML INJ IVP ONE (21:35)
[2018-05-15] MEDS ORDERED: HYDROmorphONE/DILAUDID 1 MG/ML INJ ONE (21:37)
[2018-05-15] MEDS ORDERED: NALOXONE HCL 0.4 MG/ML INJ IVP PRN (21:38)
[2018-05-15] MEDS ORDERED: PHARMACY PAIN CONSULT 1 EA MISC SCH (21:45)
[2018-05-15] MEDS ORDERED: ONDANSETRON 4 MG/2 ML VIAL IVP PRN (21:46)
[2018-05-15] MEDS ORDERED: PROMETHAZINE HCL 25 MG/ML INJ IVP PRN (21:46)
[2018-05-15] MEDS ORDERED: ACETAMINOPHEN 650 MG SUPP PR PRN (21:46)
[2018-05-15] MEDS ORDERED: ACETAMINOPHEN 325 MG TAB PO PRN (21:46)
[2018-05-15] MEDS: HYDROmorphONE/DILAUDID 6 MG/30 ML PCA IV PRN (23:30)
--- NOTE | 2018-05-15 23:32 | GHP ---
DATE OF ADMISSION: 05/15/2018 CHIEF COMPLAINT: Abdominal pain. HISTORY: The patient is a 58-year-old male on home hospice for metastatic pancreatic cancer. He was discharged from [facility] approximately 2 weeks ago to inpatient hospice at [facility]. H e stayed about 4-5 days on the inpatient unit. They transitioned him to a home IV Dilaudid pump, and he has been home since that time. During his last hospitalization, he had intractable pain because the tumor is known to be invading into his celiac plexus. IR attempted a celiac block, but it did no t help. His last CT scan did show peritoneal carcinomatosis with a small amount of ascites. In the last couple of days, however, the abdomen has acutely gotten more distended, which was concerning for worsening malignant ascites. Hospice did put an order in for outpatient paracentesis; however, coul d not be arranged after hours, so he is now being admitted to observation to have paracentesis in the morning. At this point, he has intractable pain despite being on massive doses of IV Dilaudid throu gh his IV pain pump. He gets 3.8 mg of IV Dilaudid per hour with a 1.5 mg q.15 minute bolus with nickolas e pump delivery. Despite escalating to these very high dose of IV Dilaudid, his pain continues to be intractable. He is now being admitted for pain control with hopes that paracentesis may alleviate s ome of the pain. Typically, his pain is more in the left flank, but it has moved and is now in a gen eralized anterior abdominal area. PAST MEDICAL HISTORY: 1. Metastatic pancreatic cancer. 2. Left-sided hydronephrosis secondary to tumor obstruction, status post percutaneous nephrostomy. 3. Urinary retention with chronic Joseph catheter. MEDICATIONS: Please see computer record for full detailed list. ALLERGIES: Ketamine. SOCIAL HISTORY: No smoking. Occasional alcohol. He lives with his . They also have a good fri end staying with them who is helping. 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 REVIEW OF SYSTEMS: Complete review of systems obtained. Review of systems negative regarding consti tutional, HEENT, GI, pulmonary, cardiovascular, , hematologic, skin, musculoskeletal, endocrine, ps ych, except for positives and negatives as noted in HPI. This is obtained through the patient's frie nd. The patient is currently not verbal, somnolent, unable to answer these questions. FAMILY HISTORY: Reviewed. Noncontributory to presenting complaint. PHYSICAL EXAMINATION: GENERAL: This is a cachectic, male. Somnolent but arousable. Not currently i n any distress. VITAL SIGNS: Temperature is 36.4, pulse 72, blood pressure 120/69, saturating 91% o n room air. EYES: Normal conjunctivae. Pupils equal and react to light. ENT: Normal ears and nose . Hearing intact. Normal teeth. Oropharynx moist. NECK: Trachea midline. No thyromegaly. CHEST : Normal respiratory effort. Lungs clear to auscultation bilaterally. CARDIOVASCULAR: Regular rhy thm. No murmur. No lower extremity edema. ABDOMEN: Soft, distended, nontender. No hepatosplenome mannie. SKIN: Warm, dry, intact. No rash. MUSCULOSKELETAL: No cyanosis or clubbing. Strength is 5/ 5, upper and lower extremities. NEUROLOGIC: Cranial nerves intact. Normal sensation to light touch . ASSESSMENT: The patient is somnolent on IV Dilaudid, which he is self bolusing via his home pump in the emergency room. Most of the history is obtained through the family friend as the patient is not really participating at this time. He is awake, just somnolent and drooling. ASSESSMENT/PLAN: 1. Malignant ascites. Plan for palliative paracentesis in the morning. 2. Metastatic pancreatic cancer, on home hospice. Per hospital policy, we need to change his home I V Dilaudid pump to one of our inpatient IV Dilaudid profiling machine operator. We will try to match equivalent dosing. I will consult Pharmacy to assist. 3. Left-sided hydronephrosis due to malignant blockage. Nephrostomy tube in place. 4. Urinary retention. Continue Joseph. CODE STATUS: DNR. ADMISSION STATUS: 1. Will admit to observation as he can hopefully get his paracentesis tomorrow, and if he has good r elief, return back to his home hospice situation. 2. DVT prophylaxis. This is not consistent with his goals of care, so we will not prescribe. /[id number]/MODL
[2018-05-16 04:50] VITALS: BP 104/59
[2018-05-16 05:14] LABS: INR 1.31 (0.83-1.16); PROTIME(PATIENT) 16.5 SEC (12.0-15.0)
[2018-05-16] MEDS ORDERED: LIDOCAINE 1% 300 MG/30 ML SDV ONE (08:40)
[2018-05-16] MEDS ORDERED: HYDROmorphONE/DILAUDID 1 MG/ML INJ IVP ONE (11:39)
[2018-05-16] MEDS ORDERED: LORazepam 1 MG/0.5 ML UDSYR PO PRN (11:39)
[2018-05-16] MEDS: LORazepam 1 MG/0.5 ML UDSYR PO PRN ×2 (12:02→16:41)
[2018-05-16] MEDS ORDERED: DEXAMETHASONE 4 MG TAB PO SCH (12:15)
[2018-05-16] MEDS ORDERED: DILAUDID PAIN PUMP IV SCH (12:15)
[2018-05-16] MEDS ORDERED: SULFAMETHOX/TMP 800/160 MG 1 TAB PO SCH (12:15)
[2018-05-16] MEDS ORDERED: LIDOCAINE 2% JELLY 20 ML (UROJECT) UR PRN (12:15)
[2018-05-16] MEDS ORDERED: DEXAMETHASONE 6 MG PO SCH (12:15)
[2018-05-16] MEDS ORDERED: GABAPENTIN 300 MG CAP PO SCH (12:30)
[2018-05-16] MEDS ORDERED: LACTULOSE 20 GM/30 ML UDCUP PO SCH (12:45)
[2018-05-16] MEDS ORDERED: MAG HYDROX/AL HYDROX/SIMETH 30 ML UDCUP PO PRN (13:24)
[2018-05-16] MEDS: HYDROmorphONE/DILAUDID 6 MG/30 ML PCA IV PRN (14:32)
--- NOTE | 2018-05-16 15:06 | PDDCSUM ---
Discharge Summary Discharge Summary: Date of Admission: 05/15/2018 Date of Discharge: 05/16/2018 Consults: IR Procedures: Paracentesis Followup: Hospice Hospital Course Problem List: Malignant Ascites: - Admitted for paracentesis as hospice was unable to arrange OP paracentesis in timely manner - S/p Paracentesis by IR this AM, output 1L - Discussed possibility of ascites reaccumulating and patient requiring chronic drain, they will discuss with hospice pending ascites Cancer Related Pain - Was changed from home IV Dilaudid pump to FRACTIONATING STILL OPERATOR here, added basal rate this AM as he is on at home, will transition back to home pump prior to discharge - Continue home medications including gabapentin Metastatic Pancreatic Cancer - On home hospice - Continue home medications including dexamethasone L-sided Hydronephrosis 2/2 to Malignancy - Nephrostomy tube in place Urinary Retention - Continue casanova, home Tamsulosin Time spent on discharge was >35 minutes with >50% of time spent on patient education and counseling
--- NOTE | 2018-05-16 16:19 | ASMTLACE ---
LACE Length of stay for Answers: Less than 1 day current admission Acuity / Level of Answers: No Care: Did the patient have an inpatient admission? Comorbidities - select Answers: Any tumor (including all that apply lymphoma or leukemia) # of Emergency department Answers: 3-4 visits in the last 6 months Score: 5 Date Signed: 05/16/2018 04:18 PM Electronically Signed By:SAMMIE Montelongo
--- NOTE | 2018-05-16 16:31 | ASMTDCNOTE ---
Case Management Discharge Discharge Order Complete? Answers: Yes Patient to Obtain Answers: Other Notes: Friends and family Medications Transportation Arranged Answers: Family/Friends Faxed Final Orders Answers: Yes Family Notified Answers: Yes Discharge Comments Notes: Pt was admitted with ascites and is s/p paracentesis. He has a dx of metastatic pancreatic CA. Family and friends are very involved in his care. Pt has [facility] at home. He is discharging home today after [facility] reconnects pt's CAD pump. D/C order, meds sent to [facility] via [facility]. Date Signed: 05/16/2018 04:30 PM Electronically Signed By:SAMMIE Montelongo
--- NOTE | 2018-05-16 16:34 | ASDISCHSUM ---
Discharge Information Plan Status:Hospice-Home Medically Cleared to Leave:05/16/2018 Discharge Date:05/16/2018 CM D/C Disposition:Hospice Home ADT D/C Disposition: Projected Discharge Date:05/16/2018 11:00 AM Transportation at D/C:Family Discharge Delay Reason: Follow-Up Date:05/16/2018 11:00 AM Discharge Slot: Final Diagnosis: Placement Information Referral Type:*Hospice Referral ID:[id number] Provider Name:[facility] ([facility] Address 1:[address] [place] Address 2: City:[place] Selection Factors: State:[place] Patient Contact Information Contact Name:KAREN Relationship: Address:[address] [place] [address] City:[place] Alternate Phone: State/Zip Code:[place] [address] Email: Financial Information Financial Class:HMO and PPO Plans Primary Plan Desc:[facility] Primary Plan Number:[id number] Secondary Plan Desc: Secondary Plan Number: Assessment Information LACE LACE Length of stay for Answers: Less than 1 day current admission Acuity / Level of Answers: No Care: Did the patient have an inpatient admission? Comorbidities - select Answers: Any tumor (including all that apply lymphoma or leukemia) # of Emergency department Answers: 3-4 visits in the last 6 months Score: 5 Date Signed: 05/16/2018 04:18 PM Electronically Signed By:SAMMIE Montelongo Case Management Discharge Plan Note Case Management Discharge Discharge Order Complete? Answers: Yes Patient to Obtain Answers: Other Notes: Friends and family Medications Transportation Arranged Answers: Family/Friends Faxed Final Orders Answers: Yes Family Notified Answers: Yes Discharge Comments Notes: Pt was admitted with ascites and is s/p paracentesis. He has a dx of metastatic pancreatic CA. Family and friends are very involved in his care. Pt has [facility] home. He is discharging home today after [facility] reconnects pt's CAD pump. D/C order, meds sent to [facility] via [employer]. Date Signed: 05/16/2018 04:30 PM Electronically Signed By:SAMMIE Montelongo Intervention Information
[2018-05-16] MEDS: morphINE 10 MG/0.5 ML UDSYR PO PRN ×2 (16:47→16:59)
[2018-05-16] MEDS ORDERED: LORazepam 2 MG/ML INJ IVP ONE (17:11)
[2018-05-16] MEDS ORDERED: METOCLOPRAMIDE 10 MG TAB PO SCH (17:30)
[2018-05-16] MEDS ORDERED: TAMSULOSIN HCL 0.4 MG CAP PO SCH (18:00)
[2018-05-16] MEDS ORDERED: LORazepam 0.5 MG TAB PO SCH (20:00)
[2018-05-16] MEDS ORDERED: traZODone 100 MG TAB PO SCH (22:00)
[2018-05-17] MEDS ORDERED: SENNOSIDES 1 TAB PO SCH (09:00)
== END 2018-05-16 18:10 | disposition hospice, home (50) ==
LOC: F1N 22:55
PROVIDERS: ADMIT Internal Medicine; ATTEND Internal Medicine
PROC: 0W9G3ZZ Drainage of Peritoneal Cavity, Percutaneous Approach (ICD-10-PCS; principal; 2018-05-15)
DX: C78.6 Secondary malignant neoplasm of retroperitoneum and peritoneum (principal); N13.30 Unspecified hydronephrosis; R18.0 Malignant ascites; C25.9 Malignant neoplasm of pancreas, unspecified; G89.3 Neoplasm related pain (acute) (chronic); R34 Anuria and oliguria
CPT/HCPCS: 49083; 76705; 96374; 96375; 96376; 99285; G0378; J1170; J2060